=== PATIENT | female | born 1990 | race Caucasian/White ===

== ENCOUNTER → 2024-10-03 | Outpatient (CLI) | payer OTHER, SELFPAY ==
--- NOTE | 2024-10-03 15:28 | NEURO ---
NCS and/or EMG Patient Report Ordering Doctor: Merry Holland DATE OF SERVICE: 10/03/24 Adore presents for electrodiagnostic testing of the lower limbs. She reports intermittent numbness and tingling in both feet. Electrodiagnostic findings: Peroneal motor nerve demonstrates normal distal latency, amplitude and conduction velocity bilaterally. Normal tibial motor response bilaterally. Sensory responses are within normal limits. Normal tibial and peroneal F?waves. Normal H?reflex bilaterally. Needle EMG testing was performed in the lower limbs. All muscles tested showed no evidence of denervation with normal motor unit potentials. Electrodiagnostic impression: This is a normal electrodiagnostic study of the lower limbs. There is no electrodiagnostic evidence for peripheral neuropathy or lumbosacral radiculopathy. Multi Select Codes Neurology Neurology Interp Codes: 09928-16 Musc test done w/n test comp (interp) (2) and 34523-87 Nrv cndj test 9-10 studies (interp)
== END | disposition home or self-care (01) ==
PROVIDERS: PCP Nurse Practitioner Family; Referring Provider Nurse Practitioner Family; Visit Provider Nurse Practitioner Family
DX: R20.0 Anesthesia of skin (principal); R20.2 Paresthesia of skin
CPT/HCPCS: 95886; 95911

== ENCOUNTER → 2024-10-10 | Outpatient (CLI) | payer OTHER, SELFPAY ==
--- NOTE | 2024-10-10 14:05 | NEURO ---
NCS and/or EMG Patient Report Ordering Doctor: Merry Holland DATE OF SERVICE: 10/10/24 Adore presents with complaints of numbness and tingling in the hands, worse on the right side. Electrodiagnostic findings: Right median motor nerve demonstrates prolonged distal latency with normal amplitude and conduction velocity. Left median motor response is within normal limits. Ulnar motor response within normal limits bilaterally. Prolonged right median F?wave. Prolonged right median sensory latency at the wrist. Prolonged left median sensory latency at the wrist. Normal ulnar and radial sensory responses. Needle EMG testing was performed in the upper limbs. All muscles tested showed no evidence of denervation with normal motor unit action potentials. Electrodiagnostic impression: This is an abnormal study. 1. Electrodiagnostic findings suggestive of bilateral median mononeuropathy. This is consistent with a mild left carpal tunnel syndrome and a moderate right carpal tunnel syndrome. Multi Select Codes Neurology Neurology Interp Codes: 28233-79 Musc test done w/n test comp (interp) (2) and 66548-06 Nrv cndj test 11-12 studies (interp)
--- NOTE | 2024-10-10 14:05 | NEURO ---
NCS and/or EMG Patient Report Ordering Doctor: Merry Holland DATE OF SERVICE: 10/10/24 Adore presents with complaints of numbness and tingling in the hands, worse on the right side. Electrodiagnostic findings: Right median motor nerve demonstrates prolonged distal latency with normal amplitude and conduction velocity. Left median motor response is within normal limits. Ulnar motor response within normal limits bilaterally. Prolonged right median F?wave. Prolonged right median sensory latency at the wrist. Prolonged left median sensory latency at the wrist. Normal ulnar and radial sensory responses. Needle EMG testing was performed in the upper limbs. All muscles tested showed no evidence of denervation with normal motor unit action potentials. Electrodiagnostic impression: This is an abnormal study. 1. Electrodiagnostic findings suggestive of bilateral median mononeuropathy. This is consistent with a mild left carpal tunnel syndrome and a moderate right carpal tunnel syndrome. Multi Select Codes Neurology Neurology Interp Codes: 48822-09 Musc test done w/n test comp (interp) (2) and 22937-37 Nrv cndj test 11-12 studies (interp)
--- OUTSIDE RECORDS SUMMARY | 2024-10-10 22:37 | XMS RPT_ITS | CCD ---
Author Organization [facility] Care Team Providers Care Director Of Online Merchandising Name Role Phone BACHUWA, TIFFANI Unavailable Unavailable NO FAMILY DOCTOR, NO FAMILY DOCTOR Unavailable Unavailable BACHUWA, TIFFANI Unavailable Unavailable NO FAMILY DOCTOR, NO FAMILY DOCTOR Unavailable Unavailable BACHUWA, TIFFANI Unavailable Unavailable BACHUWA, TIFFANI Unavailable Unavailable NO FAMILY DOCTOR, NO FAMILY DOCTOR Unavailable Unavailable BACHUWA, TIFFANI Unavailable Unavailable BACHUWA, TIFFANI Unavailable Unavailable NO FAMILY DOCTOR, NO FAMILY DOCTOR Unavailable Unavailable BACHUWA, TIFFANI Unavailable Unavailable NO FAMILY DOCTOR, NO FAMILY DOCTOR Unavailable Unavailable BACHUWA, TIFFANI Unavailable Unavailable BACHUWA, TIFFANI Unavailable Unavailable NO FAMILY DOCTOR, NO FAMILY DOCTOR Unavailable Unavailable BACHUWA, TIFFANI Unavailable Unavailable NO FAMILY DOCTOR, NO FAMILY DOCTOR Unavailable Unavailable BACHUWA, TIFFANI Unavailable Unavailable BACHUWA, TIFFANI Unavailable Unavailable NO FAMILY DOCTOR, NO FAMILY DOCTOR Unavailable Unavailable BACHUWA, TIFFANI Unavailable Unavailable BACHUWA, TIFFANI Unavailable Unavailable NO FAMILY DOCTOR, NO FAMILY DOCTOR Unavailable Unavailable Ksenia Kingsley Primary Care Provider KSENIA KINGSLEY Referring Unavailable KSENIA KINGSLEY Primary Care Unavailable Manocchio, Marcie Unavailable Unavailable Unknown, Referring Provider Unavailable Unav ailable Unavailable Unavailable Unavailable Primary Care Provider Unavailabl e Unavailable Primary Care Provider Unavailabl e TIFFANI RODRIGUEZ MD Attending Unavailable TIFFANI RODRIGUEZ MD Attending Unavailable TIFFANI RODRIGUEZ MD Attending Unavailable Merry Littlejohn Primary Care Provider [phone] MERRY REESE Referring Unavailable MERRY REESE Primary Care Unavailable ISMAEL PIÑA Attending Unavailable MERRY REESE Referring Unavailable MERRY REESE Primary Care Unavailable MERRY REESE Referring Unavailable MERRY REESE Primary Care Unavailable REESE, MERRY D Referring Unavailable REESE, MERRY D Primary Care Unavailable REESE, MERRY D Attending Unavailable REESE, MERRY D Primary Care Unavailable Reese, Merry D Consulting Unavailable Nic Esteban Attending Unavailable Reese, Merry Ismael Primary Care Unavailable Reese, Merry D Referring Unavailable Reese, Merry D Attending Unavailable Reese, Merry D Primary Care Unavailable Reese, Merry D Referring Unavailable Reese, Merry D Attending Unavailable Reese, Merry D Primary Care Unavailable Reese, Merry D Referring Unavailable Skyler MANAGER COMMODITIES-C, Merry D Primary Care Provider Skyler MANAGER COMMODITIES-CMerry Attending Provider Skyler MANAGER COMMODITIES-CMerry Referring Provider Skyler MYLES-Merry Canales Other Provider Carlito SUAREZ, Dr. Lucero Attending Provider [phone] Medications Current Medications Medication Drug Class(es) Dates Sig (Normalized) Sig (Original) atomoxetine 25 mg oral capsule (7 sources) Norepinephrine Reuptake Inhibitor Start: 09-05-2024 End: 09-05-2024 take 1 capsule by mouth twice daily atomoxetine (Strattera) 25 mg capsule Indications: Attention deficit disorder (ADD) without hyperactivity Take 1 capsule (25 mg) by mouth 2 times a day. 180 capsule 3 09/05/2024 Active 24 hr buPROPion hydrochloride 300 mg extended release oral tablet (10 sources) Aminoketone Start: 09-14-2022 End: 09-05-2024 take 1 tablet by mouth once daily buPROPion XL (Wellbutrin XL) 300 mg 24 hr tablet Indications: Moderate episode of recurrent major depressive disorder Take 1 tablet (300 mg) by mouth once daily. 90 tablet 3 09/05/2024 Active Start: 08-10-2022 End: 09-09-2022 take 1 tablet by mouth once daily buPROPion XL (WELLBUTRIN XL) 150 mg 24 hr tablet Take 1 tablet by mouth once daily. 30 tablet 0 08/10/2022 09/09/2022 Active Comment on above: Take 1 tablet by thad th once daily. cyclobenzaprine hydrochloride 10 mg oral tablet (1 source) Muscle Relaxant Start: 03-25-20 End: 03-27-20 take 1 tablet by mouth three times daily cyclobenzaprine 10 mg oral tablet ; 1 tab(s) orally 3 times a day Quantity: 9 Refills: 0 Ordered: 25-Mar-2021 Cherelle Dueñasine Start: 25-Mar-2021 End: 27-Mar-2021 Generic Substitution Allowed Comments: May cause drowsiness. Alcohol may intensify this effect. Use care when operating dangerous machinery.Obtain medical advice before taking any non-prescription drugs as some may affect the action of this medication. Comment on above: May cause drowsiness . Alcohol may intensify this effect. Use care when operating dangerous machinery.Obtain medical advice before taking any non-prescription drugs as some may affect the action of this medication. lisinopril 5 mg oral tablet (1 source) Angiotensin Converting Enzyme Inhibitor Start: 10-10-19 take 1 tablet by mouth once daily lisinopril 5 mg tablet Indications: Primary hypertension Take 1 tablet (5 mg) by mouth once daily. 30 tablet 10/09/2024 Active Start: 10-09-2024 take 1 tablet by thad th once daily lisinopril 5 mg tablet Indications: Primary hypertension Take 1 tablet (5 mg) by mouth once daily. 30 tablet 10/09/2024 Active loratadine 10 mg oral tablet (2 sources) take 1 tablet by thad th once daily as needed loratadine 10 mg oral tablet ; 1 tab(s) orally once a day, As Needed Quantity: 0 Refills: 0 Ordered: 25-Mar-2021 Kojo Raymond Generic Substitution Allowed Loratadine (CLAR ITIN PO) Take by mouth as needed. 0 Active predniSONE 20 mg oral tablet (1 source) Start: 03-25-2021 End: 03-29-2021 take 3 tablets by mouth once daily at mealtime predniSONE 20 mg oral tablet ; 3 tab(s) orally once a day Quantity: 15 Refills: 0 Ordered: 25-Mar-2021 TiffanyyanethCherelleMarcie Start: 25-Mar-2021 End: 29-Mar-2021 Generic Substitution Allowed Comments: It is very important that you take or use this exactly as directed. Do not skip doses or discontinue unless directed by your doctor.Obtain medical advice before taking any non-prescription drugs as some may affect the action of this medication.Take with food or milk. Comment on above: It is very important that you take or us e this exactly as directed. Do not skip doses or discontinue unless directed by your doctor.Obtain medical advice before taking any non-prescription drugs as some may affect the action of this medication.Take with food or milk. sertraline 100 mg oral tablet (16 sources) Serotonin Reuptake Inhibitor Start: 07-13-2021 End: 09-05-2024 take 1 tablet by mouth once daily sertraline (Zoloft) 100 mg tablet Indications: Moderate episode of recurrent major depressive disorder Take 1 tablet (100 mg) by mouth once daily. 90 tablet 3 09/05/2024 Active take 1 tablet by mouth once juliana y sertraline (ZOLOFT) 50 MG tablet Take 50 mg by mouth daily 0 Active Comment on above: Take 1 tablet by once daily. TAKE 1 TABLET ONCE D AILY Take by mouth. traMADol hydrochloride 50 mg oral tablet (1 source) Opioid Agonist Start: End: 1 take 1 tablet by mouth every six hours Ultram 50 mg oral tablet ; 1 tab(s) orally every 6 hours Quantity: 12 Refills: 0 Ordered: 25-Mar-2021 Aakash Marcie Start: 25-Mar-2021 End: 27-Mar-2021 Generic Substitution Allowed Comments: Caution federal law prohibits the transfer of this drug to any person other than the person for whom it was prescribed.May cause drowsiness. Alcohol may intensify this effect. Use care when operating dangerous machinery.Obtain medical advice before taking any non-prescription drugs as some may affect the action of this medication. Comment on above: Caution federal law prohibits the transfer of this drug to any person other than the person for whom it was prescribed.May cause drowsiness. Alcohol may intensify this effect. Use care when operating dangerous machinery.Obtain medical advice before taking any non-prescription drugs as some may affect the action of this medication. Completed/Discontinued Medications Medication Drug Class(es) Dates Sig (Normalized) Sig (Original) 24 hr amphetamine aspartate 5 mg / amphetamine sulfate 5 mg / dextroamphetamine saccharate 5 mg / dextroamphetamine sulfate 5 mg extended release oral capsule (5 sources) Central Nervous System Stimulant Start: 07-16-2021 End: 08-15-2021 amphetamine-dext roamphetamine XR (ADDERALL XR) 20 mg 24 hr capsule Take 20 mg by mouth. 0 07/16/2021 Active take 1 capsule by [facility] once daily in the morning dextroamphetamine-amphetamine 20 mg oral capsule, extended release ; 1 cap(s) orally once a day (in the morning) Quantity: 0 Refills: 0 Ordered: 25-Mar-2021 Kojo Raymond Generic Substitution Allowed Comment on above: Take 20 mg by mouth. esomeprazole 40 mg delayed release oral capsule (3 sources) Proton Pump Inhibitor Start: 021 take 1 capsule by mouth once daily 30 minutes before mealtime Esomeprazole Magnesium 40 MG Oral Capsule Delayed Release ONE CAPSULE 30 MINUTES BEFORE A MEAL DAILY Quantity: 30 Refills: 6 Ordered: 22-Jul-2020 Wilfredo Pascual MD Start : 22-Jul-2020 Active hydrocortisone 25 mg/ml topical cream (3 sources) Corticosteroid Start: 019 End: 023 hydrocortisone 2.5 % cream Apply sparingly to the affected areas 1-2 times daily as needed. 30 g 2 10/04/2018 08/10/2022 Discontinued (Discontinued by Patient) Comment on above: Apply sparingly to t he affected areas 1-2 times daily as needed. 10 ml lidocaine hydrochloride 10 mg/ml injection (2 sources) Antiarrhythmic, Amide Local Anesthetic Start: 025 End: 025 infiltration, Once PRN Procedure, Starting on Tue09/19/24 at 1035, For 1 dose, Intraprocedure Start: 03-25-2021 End: 03-31-2021 Lidoderm 5% topical film ; A pply topically to affected area once a day Quantity: 7 Refills: 0 Ordered: 25-Mar-2021 Marcie Dueñas Start: 25-Mar-2021 End: 31-Mar-2021 Generic Substitution Allowed Comments: For external use only.Remove old patch prior to applying a new patch. Comment on above: For external use onl y.Remove old patch prior to applying a new patch. tranexamic acid 650 mg oral tablet (2 sources) Antifibrinolytic Agent Start: 08-11-19 23 take 2 tablets by mouth every eight hours tranexamic acid (LYSTEDA) 650 mg tablet Take 2 tablets by mouth every 8 hours. During menses for heavy menstrual bleeding. Maximum of 5 days 60 tablet 4 08/10/2022 Active Comment on above: Take 2 tablets by mo uth every 8 hours. During menses for heavy menstrual bleeding. Maximum of 5 days valACYclovir 500 mg oral tablet (16 sources) Herpesvirus Nucleoside Analog DNA Polymerase Inhibitor, Herpes Simplex Virus Nucleoside Analog DNA Polymerase Inhibitor, Herpes Zoster Virus Nucleoside Analog DNA Polymerase Inhibitor Start: 07-01-19 End: 08-11-19 23 take 1 tablet by mouth twice daily valACYclovir (VALTREX) 500 mg tablet Take 1 tablet by mouth twice daily. 180 tablet 4 08/10/2022 Active take 1 tablet by thad th every twenty-four hours as needed valACYclovir (Valtrex) 500 mg tablet Dave e 1 tablet (500 mg) by mouth once daily as needed. Active Comment on above: Take by mouth. Take 1 tablet by thad th twice daily. Take 1 tablet by thad th twice daily. FOR 5 DAYS Problems Active Problems Problem Classification Problem Date Documented Da te Episodic/Chronic Administrative/social admission (3 sources) First encounter by subject; Translations: [Persons encountering health services in other specified circumstances] Onset: 5 09-05-2024 Episodic Diabetes mellitus without complication (10 sources) Impaired fasting glycemia; Translations: [Impaired fasting glucose] Onset: 5 09-05-2024 Episodic Disorders of lipid metabolism (2 sources) Mixed hyperlipidemia; Translations: [Mixed hyperlipidemia] Onset: 5 10-09-2024 Chronic Disorders usually diagnosed in infancy, childhood, or adolescence (9 sources) Attention deficit hyperactivity disorder, predominantly inattentive type; Translations: [Other specified behavioral and emotional disorders with onset usually occurring in childhood and adolescence] Onset: 1 09-05-2024 Chronic Esophageal disorders (12 sources) Gastroesophageal reflux disease; Translations: [Esophageal reflux] Onset: 5 09-05-2024 Chronic Essential hypertension (1 source) Essential hypertension; Translations: [Essential (primary) hypertension] 10-09-2024 Chronic Menstrual disorders (1 source) Menorrhagia; Translations: [Excessive and frequent menstruation with regular cycle] Chronic Mood disorders (9 sources) Moderate recurrent major depression; Translations: [Major depressive disorder, recurrent, moderate] Onset: 5 09-05-2024 Chronic Other gastrointestinal disorders (1 source) Esophageal dysphagia; Translations: [Esophageal dysphagia] Episodic Other gastrointestinal disorders (9 sources) Dysphagia; Translations: [Other dysphagia] Onset: 5 09-05-2024 Episodic Other nervous system disorders (9 sources) Numbness and tingling sensation of skin; Translations: [Anesthesia of skin] 09-05-2024 Episodic Other nervous system disorders (5 sources) Anesthesia of skin; Translations: [Anesthesia of skin] Onset: 5 Episodic Other nervous system disorders (5 sources) Paresthesia of skin; Translations: [Paresthesia of skin] Onset: 5 Episodic Other nutritional; endocrine; and metabolic disorders (8 sources) Severe obesity; Translations: [Class 2 severe obesity due to excess calories with serious comorbidity and body mass index (BMI) of 37.0 to 37.9 in adult] Onset: 5 09-05-2024 Chronic Spondylosis; intervertebral disc disorders; other back problems (1 source) Acute back pain with sciatica; Translations: [Lumbago] 03-25-2021 Episodic Thyroid disorders (20 sources) Nontoxic single thyroid nodule; Translations: [Multinodular goiter] Onset: 7 09-05-2024 Chronic Unclassified (1 source) Lower abdominal pain, unspecified / R10.30(ICD-9) Onset: 7 Unclassified (2 sources) Nontoxic single thyroid nodule / E04.1(ICD-9) Onset: 7 Unclassified (2 sources) Encounter for suprvsn of normal , second trimester / Z34.82(ICD-9) Onset: 7 Unclassified (1 source) 21 weeks gestation of / Z3A.21(ICD-9) Onset: 7 Unclassified (1 source) 20 weeks gestation of / Z3A.20(ICD-9) Onset: 7 Unclassified (2 sources) Oth related conditions, second trimester / O26.892(ICD-9) Onset: 7 Unclassified (1 source) Labor and del comp by cord around neck, w/o comprsn, unsp / O69.81X0(ICD-9) Onset: 8 Unclassified (2 sources) Encntr for suprvsn of normal , unsp, unsp trimester / Z34.90(ICD-9) Onset: 7 Unclassified (2 sources) Encounter for suprvsn of normal , first trimester / Z34.81(ICD-9) Onset: 7 Unclassified (1 source) Weeks of gestation of not specified / Z3A.00(ICD-9) Onset: 7 Unclassified (1 source) Encounter for full-term uncomplicated delivery / O80(ICD-9) Onset: 8 Unclassified (1 source) Single live / Z37.0(ICD-9) Onset: 8 Unclassified (1 source) 39 weeks gestation of / Z3A.39(ICD-9) Onset: 8 Unclassified (2 sources) NUMBNESS TO HANDS AND FEET 03-25-2021 Comment on above: NUMBNESS TO HANDS AN D FEET Unclassified (1 source) Acute low back pain with sciatica 03-25-2021 Past or Other Problems Problem Classification Problem Date Documented Date Episodic/Chronic Allergic reactions (6 sources) Allergic contact dermatitis caused by plant material; Translations: [Allergic contact dermatitis due to plants, except food] Onset: 07-11-2020 Resolved: 10-09-2024 09-05-2024 Episodic Normal and/or delivery (2 sources) Encounter for full-term uncomplicated delivery; Translations: [Encounter for supervision of normal , unspecified, unspecified trimester] Onset: 11-05-2016 Episodic Other screening for suspected conditions (not mental disorders or infectious disease) (9 sources) Patient encounter status; Translations: [Encounter for screening for lipoid disorders] Onset: 09-05-2024 Resolved: 10-09-2024 09-05-2024 Episodic Residual codes; unclassified (6 sources) Drug therapy finding; Translations: [Medication management contract broken] Onset: 01-09-2021 09-05-2024 Episodic Unclassified (1 source) Encounter for suprvsn of normal , second trimester; Translations: [Encounter for suprvsn of normal , second trimester] Onset: 01-28-2017 Unclassified (1 source) Oth related conditions, second trimester; Translations: [Oth related conditions, second trimester] Onset: 12-09-2016 Unclassified (1 source) Encounter for suprvsn of normal , first trimester; Translations: [Encounter for suprvsn of normal , first trimester] Onset: 11-01-2016 Unclassified (6 sources) Onset: 09-05-2024 Resolved: 10-09-2024 09-05-2024 Results Test Name Value Interpretation Reference Range Facility NCS and/or EMG Patienton NCS and/or EMG Patient [facility] Pulmonary Services/Neurology [address] [place] [address] MR#: [id number] Acct: [id number] Name: RAVEN PINK Rep #: [id number] : 1990 34 From: Nic Esteban MD Referring Dr: Merry ReeseC Status: REG CLI Location: [facility] Date: 10/03/24 Sex: F C NCS and/or EMG Patient Report Ordering Doctor: Merry Reese DATE OF SERVICE: 10/03/24 Raven presents for electrodiagnostic testing of the lower limbs. She reports intermittent numbness and tingling in both feet. Electrodiagnostic findings: Peroneal motor nerve demonstrates normal distal latency, amplitude and conduction velocity bilaterally. Normal tibial motor response bilaterally. Sensory responses are within normal limits. Normal tibial and peroneal F???waves. Normal H???reflex bilaterally. Needle EMG testing was performed in the lower limbs. All muscles tested showed no evidence of denervation with normal motor unit potentials. Electrodiagnostic impression: This is a normal electrodiagnostic study of the lower limbs. There is no electrodiagnostic evidence for peripheral neuropathy or lumbosacral radiculopathy. Multi Select Codes Neurology Neurology Interp Codes: 51568-04 Musc test done w/n test comp (interp) (2) and 35100-41 Nrv cndj test 9-10 studies (interp) 10/03/24 1530 Date Nic Esteban MD CC: MANAGER COMMODITIES-C Merry Reese; Dr. Nic Esteban MD Date Dictated: 10/03/241527 Date Transcribed: 10/03/241527 [employer] Operator: MARTI Signed Normal [facility] CBC (INCLUDES DIFF/PLT)on Basophils (Bld) [#/Vol] 0.039 10*3/uL Normal 0-200 [facility] Comment on above: Performed By: #### 7 600, 84956, 899, 70024, 6399, 866, 09992 #### [facility] of [place] [address] Instructional Materials Director: Porfirio Samano MD Basophils/100 WBC (Bld) 0.5 % Normal [facility] Comment on above: Performed By: #### 7 600, 99750, 899, 57890, 6399, 866, 13533 #### [facility] [place] [address] Instructional Materials Director: Porfirio Samano MD Eosinophils (Bld) [#/Vol] 0.162 10*3/uL Normal 15-500 [facility] Comment on above: Performed By: #### 7 600, 25384, 899, 10902, 6399, 866, 42063 #### [facility] [place] [address] Instructional Materials Director: Porfirio Samano MD Eosinophils/100 WBC (Bld) 2.1 % Normal [facility] Comment on above: Performed By: #### 7 600, 43332, 899, 69629, 6399, 866, 06499 #### [facility] [place] [address] Instructional Materials Director: Porfirio Samano MD Erythrocyte distribution width (RBC) [Ratio] 13.6 % Normal 11.0-15.0 [facility] Comment on above: Performed By: #### 7 600, 95122, 899, 84450, 6399, 866, 57671 #### [facility] [place] [address] Instructional Materials Director: Porfirio Samano MD Hematocrit (Bld) [Volume fraction] 41.2 % Normal 35.0-45.0 [facility] Comment on above: Performed By: #### 7 600, 87256, 899, 57618, 6399, 866, 72520 #### [facility] of [address], [address] [place] [address] Instructional Materials Director: Porfirio Samano MD Hemoglobin (Bld) [Mass/Vol] 12.8 g/dL Normal 11.7-15.5 [facility] Comment on above: Performed By: #### 7 600, 38986, 899, 87485, 6399, 866, 32853 #### [facility] [place] [address] Instructional Materials Director: Porfirio Samano MD Lymphocytes (Bld) [#/Vol] 2.064 10*3/uL Normal 850-3900 [facility] Comment on above: Performed By: #### 7 600, 58675, 899, 74069, 6399, 866, 43522 #### [facility] [place] [address] Instructional Materials Director: Porfirio Samano MD Lymphocytes/100 WBC (Bld) 26.8 % Normal [facility] Comment on above: Performed By: #### 7 600, 58453, 899, 41528, 6399, 866, 35723 #### [facility] [place] [address] Instructional Materials Director: Porfirio Samano MD MCH (RBC) [Entitic mass] 29.2 pg Normal 27.0-33.0 [facility] Comment on above: Performed By: #### 7 600, 69619, 899, 90880, 6399, 866, 78289 #### [facility] [place] [address] Instructional Materials Director: Porfirio Samano MD MCHC (RBC) [Mass/Vol] 31.1 g/dL Low 32.0-36.0 [facility] Comment on above: Result Comment: For adults, a slight decrease in the calculated MCHC value (in the range of 30 to 32 g/dL) is most likely not clinically significant; however, it should be interpreted with caution in correlation with other red cell parameters and the patient's clinical condition. Performed By: #### 7 600, 44384, 899, 78941, 6399, 866, 43670 #### [facility] [place] [address] Instructional Materials Director: Porfirio Samano MD MCV (RBC) [Entitic vol] 93.8 fL Normal 80.0-100.0 [facility] Comment on above: Performed By: #### 7 600, 93920, 899, 89149, 6399, 866, 58663 #### [facility] [place] [address] Instructional Materials Director: Porfirio Samano MD Monocytes (Bld) [#/Vol] 0.454 10*3/uL Normal 200-950 [facility] Comment on above: Performed By: #### 7 600, 77233, 899, 55118, 6399, 866, 63746 #### [facility] [place] [address] Instructional Materials Director: Porfirio Samano MD Monocytes/100 WBC (Bld) 5.9 % Normal [facility] Comment on above: Performed By: #### 7 600, 48006, 899, 00852, 6399, 866, 78362 #### [facility] [place] [address] Instructional Materials Director: Porfirio Samano MD Neutrophils (Bld) [#/Vol] 4.982 10*3/uL Normal 3746-9561 [facility] Comment on above: Performed By: #### 7 600, 36150, 899, 61777, 6399, 866, 63707 #### [facility] of [address], [address] [place] [address] Instructional Materials Director: Porfirio Samano MD Neutrophils/100 WBC (Bld) 64.7 % Normal [facility] Comment on above: Performed By: #### 7 600, 72687, 899, 39716, 6399, 866, 14572 #### [facility] [place] [address] Instructional Materials Director: Porfirio Samano MD Platelet mean volume (Bld) [Entitic vol] 9.0 fL Normal 7.5-12.5 [facility] Comment on above: Performed By: #### 7 600, 86182, 899, 06465, 6399, 866, 93768 #### [facility] [place] [address] Instructional Materials Director: Porfirio Samano MD Platelets (Bld) [#/Vol] 358 10*3/uL Normal 140-400 [facility] Comment on above: Performed By: #### 7 600, 41081, 899, 79307, 6399, 866, 50100 #### [facility] [place] [address] Instructional Materials Director: Porfirio Samano MD RBC (Bld) [#/Vol] 4.39 10*6/uL Normal 3.80-5.10 [facility] Comment on above: Performed By: #### 7 600, 72243, 899, 05683, 6399, 866, 28348 #### [facility] [place] [address] Instructional Materials Director: Porfirio Samano MD WBC (Bld) [#/Vol] 7.7 10*3/uL Normal 3.8-10.8 [facility] Comment on above: Performed By: #### 7 600, 40944, 899, 41551, 6399, 866, 31354 #### [facility] [place] [address] Instructional Materials Director: Porfirio Samano MD COMPREHENSIVE METABOLIC PANE L W/ANION GAPon 09-20-2024 Albumin [Mass/Vol] 4.5 g/dL Normal 3.6-5.1 [facility] Comment on above: Performed By: #### 7 600, 51747, 899, 65625, 6399, 866, 41165 #### [facility] [place] [address] Instructional Materials Director: Porfirio Samano MD ALP [Catalytic activity/Vol] 60 U/L Normal 31-125 [facility] Comment on above: Performed By: #### 7 600, 86025, 899, 64803, 6399, 866, 48407 #### [facility] of [address], [address] [place] [address] Instructional Materials Director: Porfirio Samano MD ALT [Catalytic activity/Vol] 13 U/L Normal 6-29 [facility] Comment on above: Performed By: #### 7 600, 75627, 899, 10215, 6399, 866, 24665 #### [facility] [place] [address] Instructional Materials Director: Porfirio Samano MD AST [Catalytic activity/Vol] 12 U/L Normal 10-30 [facility] Comment on above: Performed By: #### 7 600, 48266, 899, 81661, 6399, 866, 16122 #### [facility] [place] [address] Instructional Materials Director: Porfirio Samano MD Bilirubin [Mass/Vol] 0.3 mg/dL Normal 0.2-1.2 [facility] Comment on above: Performed By: #### 7 600, 16631, 899, 96615, 6399, 866, 57606 #### [facility] [place] [address] Instructional Materials Director: Porfirio Samano MD Calcium [Mass/Vol] 9.1 mg/dL Normal 8.6-10.2 [facility] Comment on above: Performed By: #### 7 600, 49139, 899, 93154, 6399, 866, 05346 #### [facility] [place] [address] Instructional Materials Director: Porfirio Samaon MD Chloride [Moles/Vol] 104 mmol/L Normal 98-110 [facility] Comment on above: Performed By: #### 7 600, 90432, 899, 42759, 6399, 866, 95899 #### [facility] [address], [address] [place] [address] Instructional Materials Director: Porfirio Samano MD CO2 [Moles/Vol] 29 mmol/L Normal 20-32 [facility] Comment on above: Performed By: #### 7 600, 82557, 899, 87243, 6399, 866, 76726 #### [facility] [place] [address] Instructional Materials Director: Porfirio Samano MD Creatinine [Mass/Vol] 0.72 mg/dL Normal 0.50-0.97 [facility] Comment on above: Performed By: #### 7 600, 96173, 899, 35719, 6399, 866, 58076 #### [facility] [place] [address] Instructional Materials Director: Porfirio Samano MD ELECTROLYTE BALANCE 6 mmol/L (calc) Low 7-17 [facility] Comment on above: Performed By: #### 7 600, 63669, 899, 48554, 6399, 866, 72624 #### [facility] [place] [address] Instructional Materials Director: Porfirio Samano MD GFR/1.73 sq M.predicted among non-blacks MDRD (S/P/Bld) [Vol rate/Area] 111 mL/min/{1.73_m2} Normal > OR = 60 [facility] Comment on above: Performed By: #### 7 600, 13236, 899, 32017, 6399, 866, 37550 #### [facility] [place] [address] Instructional Materials Director: Porfirio Samano MD Glucose [Mass/Vol] 85 mg/dL Normal 65-99 [facility] Comment on above: Result Comment: Fasting reference interval Performed By: #### 7 600, 90280, 899, 05251, 6399, 866, 92429 #### [facility] [place] [address] Instructional Materials Director: Porfirio Samano MD Potassium [Moles/Vol] 4.1 mmol/L Normal 3.5-5.3 [facility] Comment on above: Performed By: #### 7 600, 11933, 899, 10268, 6399, 866, 21142 #### [facility] [place] [address] Instructional Materials Director: Porfirio Samano MD Protein [Mass/Vol] 7.0 g/dL Normal 6.1-8.1 [facility] Comment on above: Performed By: #### 7 600, 03013, 899, 76540, 6399, 866, 97111 #### [facility] [place] [address] Instructional Materials Director: Porfirio Samano MD Sodium [Moles/Vol] 139 mmol/L Normal 135-146 [facility] Comment on above: Performed By: #### 7 600, 91717, 899, 98696, 6399, 866, 70376 #### [facility] [place] [address] Instructional Materials Director: Porfirio Samano MD Urea nitrogen [Mass/Vol] 12 mg/dL Normal 7-25 [facility] Comment on above: Performed By: #### 7 600, 85703, 899, 81517, 6399, 866, 79150 #### [facility] [place] [address] Instructional Materials Director: Porfirio Samano MD HEMOGLOBIN A1c WITH eAGon eAG (mmol/L) 6.3 mmol/L Normal [facility] Comment on above: Performed By: #### 7 600, 53675, 899, 03225, 6399, 866, 16918 #### [facility] [place] [address] Instructional Materials Director: Porfirio Samano MD HbA1c (Bld) [Mass fraction] 5.6 % Normal <5.7 [facility] Comment on above: Result Comment: For the purpose of screening for the presence of diabetes: <5.7% Consistent with the absence of diabetes 5.7-6.4% Consistent with increased risk for diabetes (prediabetes) > or =6.5% Consistent with diabetes This assay result is consistent with a decreased risk of diabetes. Currently, no consensus exists regarding use of hemoglobin A1c for diagnosis of diabetes in children. According to [place] [employer] (ADA) guidelines, hemoglobin A1c <7.0% represents optimal control in non- diabetic patients. Different metrics may apply to specific patient populations. Standards of Medical Care in Diabetes(ADA). Performed By: #### 7 600, 56279, 899, 01530, 6399, 866, 55114 #### [facility] [place] [address] Instructional Materials Director: Porfirio Samano MD Magnesium [Mass/Vol] 114 mg/dL Normal [facility] Comment on above: Performed By: #### 7 600, 06716, 899, 14473, 6399, 866, 25288 #### [facility] [place] [address] Instructional Materials Director: Porfirio Samano MD LIPID PANEL, [facility] 08-27 Cholesterol [Mass/Vol] 212 mg/dL High <200 [facility] Comment on above: Order Comment: FASTI NG:YES FASTING: YES Performed By: #### 7 600, 05110, 899, 51088, 6399, 866, 31569 #### [facility] [address], [address] [place] [address] Instructional Materials Director: Porfirio Samano MD Cholesterol in HDL [Mass/Vol] 50 mg/dL Normal > OR = 50 [facility] Comment on above: Order Comment: FASTI NG:YES FASTING: YES Performed By: #### 7 600, 35061, 899, 57179, 6399, 866, 72088 #### [facility] [address], [address] [place] [address] Instructional Materials Director: Porfirio Samano MD Cholesterol in LDL [Mass/Vol] 136 mg/dL High [facility] Comment on above: Order Comment: FASTI NG:YES FASTING: YES Result Comment: Refe rence range: <100 Desirable range <100 mg/dL for primary prevention; <70 mg/dL for patients with CHD or diabetic patients with > or = 2 CHD risk factors. LDL-C is now calculated using the Pam calculation, which is a validated novel method providing better accuracy than the Friedewald equation in the estimation of LDL-C. Aftab SS et al. CAROLYN. 2013;310(19): 4904-9813 (http://education.[employer].Gutenbergz/faq/UDY234) Performed By: #### 7 600, 17603, 899, 18381, 6399, 866, 62495 #### [facility] [address], [address] [place] [address] Instructional Materials Director: Porfirio Samano MD Cholesterol.total/C holesterol in HDL [Mass ratio] 4.2 {ratio} Normal <5.0 [facility] Comment on above: Order Comment: FASTI NG:YES FASTING: YES Performed By: #### 7 600, 95341, 899, 85704, 6399, 866, 67496 #### [facility] [address], [address] [place] [address] Instructional Materials Director: Porfirio Samano MD NON HDL CHOLESTEROL 162 mg/dL (calc) High <130 [facility] Comment on above: Order Comment: FASTI NG:YES FASTING: YES Result Comment: For patients with diabetes plus 1 major ASCVD risk factor, treating to a non-HDL-C goal of <100 mg/dL (LDL-C of <70 mg/dL) is considered a therapeutic option. Performed By: #### 7 600, 35179, 899, 01579, 6399, 866, 47961 #### [facility] [address], [address] [place] [address] Instructional Materials Director: Profirio Samano MD Triglyceride [Mass/Vol] 137 mg/dL Normal <150 [facility] Comment on above: Order Comment: FASTI NG:YES FASTING: YES Performed By: #### 7 600, 86072, 899, 63485, 6399, 866, 43776 #### [facility] [address], [address] [place] [address] Instructional Materials Director: Porfirio Samano MD T3, FREEon 09-20-2024 Free T3 [Mass/Vol] 2.8 pg/mL Normal 2.3-4.2 [facility] Comment on above: Performed By: #### 7 600, 91432, 899, 87756, 6399, 866, 50914 #### [facility] [place] [address] Instructional Materials Director: Porfirio Samano MD T4, FREE 09-20-2024 Free T4 [Mass/Vol] 0.9 ng/dL Normal 0.8-1.8 [facility] Comment on above: Performed By: #### 7 600, 43147, 899, 17923, 6399, 866, 03467 #### [facility] [place] [address] Instructional Materials Director: Porfirio Samano MD TSHon 09-20-2024 TSH Qn 2.81 m[IU]/L Normal [facility] Comment on above: Result Comment: Refe rence Range > or = 20 Years 0.40-4.50 Ranges First trimester 0.26-2.66 Second trimester 0.55-2.73 Third trimester 0.43-2.91 Performed By: #### 7 600, 67696, 899, 61970, 6399, 866, 89253 #### [facility] [place] [address] Instructional Materials Director: Porfirio Samano MD Non-city planning teacher cytology studyon Non-gynecological cytology method study Pathology report.total SEE COMMENT Non-gynecologic Cytology Case: [id number] Authorizing Provider: Merry Reese APRN-ABIGAIL Collected: 09/19/2024 1058 Ordering Location: [facility] Received: 09/19/2024 1107 Center Pathologist: Lianet Cordero MD Specimen: THYROID FINE NEEDLE ASPIRATION RIGHT MID LOBE Path report.final diagnosis SEE COMMENT A. THYROID FINE NEEDLE ASPIRATION RIGHT MID LOBE Malignant cells derived from papillary thyroid carcinoma medical consultant: Tari Blue M.D. at 1509 EDT Laboratory comment SEE COMMENT Slide(s) initially screened by CLAUDIA Infante at [facility] [address] [facility] [id number] By the signature on this report, the individual or group listed as making the Final Interpretation/Diagnosis certifies that they have reviewed this case. RESIDENT REVIEW The gross and/or microscopic findings were reviewed in conjunction with pathology resident, Abhishek Arshad MD. Path report.relevant Hx Right thyroid nodule Path report.gross observation SEE COMMENT A. THYROID FINE NEEDLE ASPIRATION RIGHT MID LOBE. Received 8 direct smears (4 air-dried Diff-Quik and 4 spray-fixed) and 30 ml pink clear needle rinse in Cytolyt with particles. Laboratory comment SEE COMMENT A1 Slides Only (No Block) A1-1 Diff Quik Stain Smear NGYN A1-2 Diff Quik Stain Smear NGYN A1-3 Diff Quik Stain Smear NGYN A1-4 Diff Quik Stain Smear NGYN A1-5 Pap Stain Smear NGYN A1-6 Pap Stain Smear NGYN A1-7 Pap Stain Smear NGYN A1-8 Pap Stain Smear NGYN A1-9 Pap Stain NGYN ThinPrep Normal [facility] US GUIDED THYROID BIOPSYon 0 09-19-2024 US GUIDED THYROID BIOPSY Interpreted By: Ismael Piña, STUDY: US GUIDED THYROID BIOPSY; 09/19/2024 11:33 am INDICATION: Signs/Symptoms:nodule. COMPARISON: 09/07/2024 ACCESSION NUMBER(S): [id number] ORDERING CLINICIAN: MERRY REESE FINDINGS: A detailed discussion of the procedure was performed with the patient. Informed consent was obtained by Dr. Piña. The patient was placed in the supine position with the neck in an extended position. Ultrasound of the thyroid was performed and demonstrated a bilobed nodule within the right lobe of the thyroid, corresponding with the 2 nodules described on the prior ultrasound.. The nodule in the right lobe of the thyroid was selected for biopsy. The patient was prepped and draped in normal sterile fashion. 1% lidocaine was utilized for local anesthesia. Subsequently, four passes were made into the right thyroid nodule using 25 gauge spinal needles under direct ultrasound guidance. Images document the tip of the needle within the nodule. Slides were prepared and sent to pathology for evaluation. There were no immediate complications. The procedure was performed by Dr. Piña. The patient was monitored throughout the procedure by the nurse, including blood pressure, heart rate, EKG, and pulse oximetry. IMPRESSION: Successful ultrasound-guided fine-needle aspiration biopsy of the thyroid. Signed by: Ismael Piña 09/19/2024 12:21 PM Dictation workstation: [id number] [facility] US Guidance for fine needle aspiration of Thyroid glandon 09-19-2024 Successful ultrasound-guided fine-needle aspiration biopsy of the thyroid. Signed by: Ismael Piña 09/19/2024 12:21 PM Dictation workstation: [id number] SHERI JORDAN Interpreted By: Ismael Piña, STUDY: US GUIDED THYROID BIOPSY; 09/19/2024 11:33 am INDICATION: Signs/Symptoms:nodule. COMPARISON: 09/07/2024 ACCESSION NUMBER(S): [id number] ORDERING CLINICIAN: MERRY REESE FINDINGS: A detailed discussion of the procedure was performed with the patient. Informed consent was obtained by Dr. Piña. The patient was placed in the supine position with the neck in an extended position. Ultrasound of the thyroid was performed and demonstrated a bilobed nodule within the right lobe of the thyroid, corresponding with the 2 nodules described on the prior ultrasound.. The nodule in the right lobe of the thyroid was selected for biopsy. The patient was prepped and draped in normal sterile fashion. 1% lidocaine was utilized for local anesthesia. Subsequently, four passes were made into the right thyroid nodule using 25 gauge spinal needles under direct ultrasound guidance. Images document the tip of the needle within the nodule. Slides were prepared and sent to pathology for evaluation. There were no immediate complications. The procedure was performed by Dr. Piña. The patient was monitored throughout the procedure by the nurse, including blood pressure, heart rate, EKG, and pulse oximetry. Ismael Menendez MD - 09/19/2024 Interpreted By: Ismael Piña, STUDY: US GUIDED THYROID BIOPSY; 09/19/2024 11:33 am INDICATION: Signs/Symptoms:nodule. COMPARISON: 09/07/2024 ACCESSION NUMBER(S): [id number] ORDERING CLINICIAN: MERRY REESE FINDINGS: A detailed discussion of the procedure was performed with the patient. Informed consent was obtained by Dr. Piña. The patient was placed in the supine position with the neck in an extended position. Ultrasound of the thyroid was performed and demonstrated a bilobed nodule within the right lobe of the thyroid, corresponding with the 2 nodules described on the prior ultrasound.. The nodule in the right lobe of the thyroid was selected for biopsy. The patient was prepped and draped in normal sterile fashion. 1% lidocaine was utilized for local anesthesia. Subsequently, four passes were made into the right thyroid nodule using 25 gauge spinal needles under direct ultrasound guidance. Images document the tip of the needle within the nodule. Slides were prepared and sent to pathology for evaluation. There were no immediate complications. The procedure was performed by Dr. Piña. The patient was monitored throughout the procedure by the nurse, including blood pressure, heart rate, EKG, and pulse oximetry. IMPRESSION: Successful ultrasound-guided fine-needle aspiration biopsy of the thyroid. Signed by: Ismael Piña 09/19/2024 12:21 PM Dictation workstation: [id number] [facility] Work Phone: Radiology Study observation (narrative) [facility] Work Phone: US Guidance for fine needle aspiration of Thyroid glandOrdered By: Ismael Piña on 09-19-2024 [facility] Work Phone: XR CERVICAL SPINE 2-3 VIEWSo n 09-19-2024 XR CERVICAL SPINE 2-3 VIEWS Interpreted By: Jp Ruelas, STUDY: XR CERVICAL SPINE 2-3 VIEWS; ; 09/19/2024 9:52 am INDICATION: Signs/Symptoms:NUMBNESS AND TINGLING TO BUE. ,R20.0 Anesthesia of skin,R20.2 Paresthesia of skin COMPARISON: None. ACCESSION NUMBER(S): [id number] ORDERING CLINICIAN: MERRY REESE FINDINGS: Two views demonstrate about 2 mm C5 retrolisthesis. Mild degenerative disc space narrowing at C5-6. Heights of the vertebra are maintained. No unusual paravertebral soft tissue abnormality. IMPRESSION: Mild degenerative changes C5-6 including mild degenerative C5 retrolisthesis. MACRO: None Signed by: Jp Ruelas 09/20/2024 1:31 PM Dictation workstation: [id number] [facility] XR LUMBAR SPINE 6+ VIEWS INC LUDING OBLIQUE FLEXION EXTENSIONon 09-19-2024 XR LUMBAR SPINE 6+ VIEWS INCLUDING OBLIQUE FLEXION EXTENSION Interpreted By: Jp Ruelas, STUDY: XR LUMBAR SPINE 6+ VIEWS INCLUDING OBLIQUE FLEXION EXTENSION; ; 09/19/2024 9:53 am INDICATION: Signs/Symptoms:NUMBNESS AND TINGLING TO BLE. ,R20.0 Anesthesia of skin,R20.2 Paresthesia of skin COMPARISON: March 25, 2021 CT abdomen and pelvis ACCESSION NUMBER(S): [id number] ORDERING CLINICIAN: MERRY REESE FINDINGS: There are 5 non rib-bearing lumbar segments. Heights of the vertebra and intervertebral disc spaces are maintained. There are fracture, subluxation, spondylolysis or instability. No unusual paravertebral soft tissue abnormalities. IMPRESSION: No significant abnormality. MACRO: None Signed by: Jp Ruelas 09/20/2024 1:15 PM Dictation workstation: [id number] [facility] US THYROIDon 09-07-2024 US THYROID Interpreted By: aAron Rodriguez, STUDY: US THYROID; 09/07/2024 12:37 pm INDICATION: Signs/Symptoms:NODULES. COMPARISON: 04/16/2022 ACCESSION NUMBER(S): [id number] ORDERING CLINICIAN: MERRY REESE TECHNIQUE: Multiple ultrasonographic images of the thyroid gland and surrounding tissues were obtained. FINDINGS: PARENCHYMA: SIZE: RIGHT LOBE: 5 x 1.7 x 1.8 cm; heterogenous echotexture with normal vascularity. LEFT LOBE: 3.9 x 0.9 x 1.1 cm; heterogenous echotexture with normal vascularity. ISTHMUS: 0.3 cm NODULES: (Please note, assessment and description of nodules is per TI-RADS criteria. Up to 4 total nodules described, which includes largest and/or most clinically significant based on morphology.) It is noted that some spongiform and/or cystic nodules may not be specifically described and are TR category 1 (benign). NODULE #: 1. Location: Right interpolar region Size: 10 x 12 x 8 mm Composition: Solid or almost completely solid (2) Echogenicity: Hypoechoic (2) Shape: Vgeqq-hrcw-emwn (0) Margin: Smooth (0) Echogenic Foci: Punctate echogenic foci (3) If present previously: Significant change in size (>/= 20% diameter increase in at least two dimensions and minimal increase of 2mm?): not applicable Change in features or ACR TI-RADS category: not applicable The total score of this nodule is 7 points, corresponding to a TI-RADS category 5; (>7 points) Highly suspicious. NODULE #: 2. Location: Right interpolar region Size: 13 x 10 x 11 mm, previously 8 x 5 x 7 mm Composition: Solid or almost completely solid (2) Echogenicity: Hypoechoic (2) Shape: Jrpzu-lzzu-opon (0) Margin: Smooth (0) Echogenic Foci: Punctate echogenic foci (3) If present previously: Significant change in size (>/= 20% diameter increase in at least two dimensions and minimal increase of 2mm?): Yes, increased. Change in features or ACR TI-RADS category: Yes, increased. The total score of this nodule is 7 points, corresponding to a TI-RADS category 5; (>7 points) Highly suspicious. NODULE #: 3. Location: Left upper pole Size: 7 x 6 x 7 mm Composition: Solid or almost completely solid (2) Echogenicity: Hypoechoic (2) Shape: Mcduk-mfsr-zszf (0) Margin: Smooth (0) Echogenic Foci: None or Large comet-tail artifacts (0) If present previously: Significant change in size (>/= 20% diameter increase in at least two dimensions and minimal increase of 2mm?): not applicable Change in features or ACR TI-RADS category: not applicable The total score of this nodule is 4 points, corresponding to a TI-RADS category 4; (4-6 points) Moderately suspicious. NODULE #: 4. Location: Left inferior pole Size: 6 x 4 x 3 mm Composition: Solid or almost completely solid (2) Echogenicity: Hyperechoic or isoechoic (1) Shape: Ktzpg-wttv-coic (0) Margin: Smooth (0) Echogenic Foci: None or Large comet-tail artifacts (0) If present previously: Significant change in size (>/= 20% diameter increase in at least two dimensions and minimal increase of 2mm?): not applicable Change in features or ACR TI-RADS category: not applicable The total score of this nodule is 3 points, corresponding to a TI-RADS category 3; (3 points) Mildly suspicious. CERVICAL LYMPH NODES: No enlarged or morphologically abnormal cervical nodes are seen. IMPRESSION: 1. Heterogenous thyroid gland with multiple nodules. 2. Interval increase in the size of a TIRADS 5 right interpolar region nodule, which now measures 13 mm. Additional TIRADS 5 nodule in the right interpolar region, measures 12 mm and was not noted on the prior examination. Recommend FNA of these nodules. 3. Subcentimeter left upper pole TIRADS 4 nodule, also noted. Please note that these statements are based on the recommendations of the [place] [employer] TI-RADS grading system. ACR TI-RADS recommendations (apply to nodules which have NOT been biopsied): TR5 (7 or more points) highly suspicious - FNA if ? 1cm, follow-up if 0.5 -0.9 cm every year for 5 years. Aggregate cancer risk 35%. TR4 (4-6 points) moderately suspicious - FNA if ? 1.5cm, follow-up if 1 -1.4 cm in 1, 2, 3 and 5 years. Aggregate cancer risk 9.1% TR3 (3 points) mildly suspicious - FNA if ? 2.5cm, follow-up if 1.5 -2.4 cm in 1, 3 and 5 years. Aggregate cancer risk 4.8% TR2 (2 points) not suspicious. No FNA or follow-up. Aggregate cancer risk 1.5% TR1 (0 points) benign - No FNA or follow-up. Aggregate cancer risk 0.3% Signed by: Aaron Maciel 09/09/2024 3:58 PM Dictation workstation: [id number] [facility] THIN PREP IMAGE SEND OUTon 0 08-19-2023 THINPREP TIS PAP SEE COMMENT [facility] Comment on above: Order Comment: Order ed on Fin# [id number] Result Comment: THIN PREP TIS PAP Lab: [id number] CLINICAL INFORMATION: None given LMP: None given prev. Pap: None given prev. Bx: None given SOURCE: None given STATEMENT OF ADEQUACY: Satisfactory for evaluation. Endocervical/transformation zone component absent. INTERPRETATION/RESULT: Cytology Results: Negative for intraepithelial lesion or malignancy. COMMENT: This Pap test has been evaluated with computer assisted technology. AND RESCUE FIRE FIGHTER CRASH FIRE: CLAUDIA DENNIS(ASCP) CT screening location: [facility] [place] [address]. For questions contact [facility] Client Services at [phone] EXPLANATORY NOTE: The Pap is a screening test for cervical cancer. It is not a diagnostic test and is subject to false negative and false positive results. It is most reliable when a satisfactory sample, regularly obtained, is submitted with relevant clinical findings and history, and when the Pap result is evaluated along with historic and current clinical information. PERFORMING SITE: [facility] [address] [address] Business Banking Manager: PORFIRIO SAMANO MD, CLIA: [id number] Performed By: #### C [id number] #### [facility] [address] [place] [address] Instructional Materials Director: Aftab Mcguire MD GP HPVon 08-18-2023 GP HPV Negative Normal [facility] Comment on above: Order Comment: Order ed on Fin# [id number] Result Comment: This HPV assay is being performed via a second generation NAAT that utilizes target capture, child and adolescent psychiatrist mediated amplification and dual kenetic assay technologies. Performed By: #### C [id number] #### [facility] [address] [place] [address] Instructional Materials Director: Aftab Mcguire MD [facility] Physician Progress No rosita 08-16-2023 [facility] Physician Progress Note RAVEN PINK :1990 Registration Date:08/16/2023 Assessment/Plan This Visit Diagnosis 1. Cervical cancer screening Z12.4 discussed health maintenance. paps every 3 years if wnl. self-breast exams monthly. taught exam in detail. daily multi-vitamin and Calcium/Vitamin D. mammograms to start at 40 yo. Ordered: THIN PREP IMAGE SEND OUT, ROUTINE, 08/16/2023, Specimen type: 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 Spec, Cervix, Dx: Cervical cancer screening 2. Encounter for screening for human papillomavirus (HPV) Z11.51 Ordered: GP HPV, ROUTINE, 08/16/2023, Specimen type: Cervical, Dx: Encounter for screening for human papillomavirus (HPV) 3. Cervical smear, as part of routine gynecological examination Z01.419 Orders: tranexamic acid = TXA(Lysteda 650 mg oral tablet), 1300 mg= 2 tabs, ORAL, TID, 4 refills Medication Reconciliation What How Much When Instructions Changed tranexamic acid = TXA (Lysteda 650 mg oral tablet) 2 Tabs Oral THREE TIMES A DAY Pickup at [facility] Unchanged buPROPion (Wellbutrin XL 300 mg/ 24 hours oral tablet, extended release) 1 Tabs Oral DAILY Pickup at [facility] Unchanged amphetamine-dextroamphet amine (Adderall 20 mg oral tablet) Oral TWICE A DAY Contact prescribing physician if questions or concerns Unchanged sertraline (sertraline 100 mg oral tablet) 1 Tabs Oral DAILY Contact prescribing physician if questions or concerns Unchanged valACYclovir (Valtrex 500 mg oral tablet) Oral DAILY Contact prescribing physician if questions or concerns Pharmacy Information [facility] Pharmacy: 1 [facility] DARRYL Fletcher [phone] Chief Complaint Annual physical exam, cycles are normal on Lysteda History of Present Illness annual exam. doing well on lysteda. desires refill. no complaints. Review of Systems Constitutional: Negative for chills, fatigue, or fever Gastrointestinal: Negative for abdominal pain, constipation, diarrhea, nausea and vomiting. Genitourinary: per hpi Skin: Negative for rash. Neurological: Negative for dizziness, syncope and headaches. Psychiatric/Behavioral: Negative for agitation, behavioral problems, confusion, self-injury and suicidal ideas. Physical Exam Vitals & Measurements BP: 142/80 HT: 163 cm WT: 95 kg BMI: 35.76 LMP: 07/18/2023 00:00 EDT Depression Screening Scores No Depression Screening data available for this encounter. Fall Risk Assessment Is the patient ambulatory (mobile): Yes (08/16/23 13:34:00) Have you had a fall within the past: No (08/16/23 13:34:00) Have you had 2 or more falls in the past: No (08/16/23 13:34:00) Physical Exam Constitutional: Appearance: She is well-developed. Genitourinary: Pelvic exam was performed with patient in the lithotomy position. Bladder normal, non tender. No urethral prolapse, tenderness or mass present. Vulva, no lesions, rash, or tenderness. No lesions in the vagina. No vaginal discharge or tenderness. Right Adnexa: not tender and no mass present. Left Adnexa: not tender and no mass present. No cervical discharge, friability or polyp. Uterus is not enlarged or tender. Breasts: Right: No mass, nipple discharge, skin change or tenderness. Left: No mass, nipple discharge, skin change or tenderness. Chest: Chest wall: No lacerations, deformity or tenderness. Abdominal: General: There is no distension. Palpations: Abdomen is soft. Tenderness: There is no abdominal tenderness. Neurological: Mental Status: She is alert and oriented to person, place, and time. Skin: General: Skin is warm and dry. Findings: No acne, erythema, lesion or rash. Psychiatric: Attention and Perception: Attention and perception normal. Mood and Affect: Mood and affect normal. Speech: Speech normal. Behavior: Behavior normal. Behavior is cooperative. Thought Content: Thought content normal. Cognition and Memory: Cognition normal. Judgment: Judgment normal. Vitals reviewed. 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 Screening Date of Last Pap Smear08/16/2022 Last Pap Result, Pt StatedNegative OB History History (2,0,0,2) # 1 Baby 1 Outcome Date: 2015 Outcome or Result: Vaginal Gest Age: 39 weeks Outcome: Live Sex: Male # 2 Baby 1 Outcome Date: 2017 Outcome or Result: Vaginal Gest Age: 39 weeks Outcome: Live Sex: Female Problem List/Past Medical History Ongoing ADHD Anxiety and depression Cervical cancer screening Cervical smear, as part of routine gynecological examination Encounter for screening for human papillomavirus (HPV) Herpes Irregular menses PCOS (polycystic ovarian syndrome) PMS (premenstrual syndrome) Historical Procedure/Surgical History Left Ankle Fract (more content not included)... Normal [facility] Ambulatory Clinical Summaryo n 08-16-2023 Ambulatory Clinical Summary RAVEN PINK :1990 Registration Date:08/16/2023 Ambulatory Visit Instructions Your Diagnosis Cervical cancer screening Encounter for screening for human papillomavirus (HPV) Cervical smear, as part of routine gynecological examination Your Care Team Attending Physician - OBIE SUAREZ, TIFFANI Procedures Performed Left Ankle Fracture Repair with Hardware Discharge Vitals Blood Pressure 142/80 Height 64.17 in (163 cm) Weight 209.48 lb (95 kg) BMI 35.76 Systolic Blood Pressure: 142 mmHg High (08/16/23 13:34:00) Diastolic Blood Pressure: 80 mmHg (08/16/23 13:34:00) Mean Arterial Pressure: 101 mmHg (08/16/23 13:34:00) Height/Length Measured: 163 cm (08/16/23 13:34:00) Weight Measured: 95 kg (08/16/23 13:34:00) Body Mass Index Measured: 35.76 kg/m2 (08/16/23 13:34:00) Weight Measured - lbs2: 210.2 lb (08/16/23 13:34:00) Height/Length Measured - in2: 64 in (08/16/23 13:34:00) Body Mass Index Measured English2: 36.08 kg/m2 (08/16/23 13:34:00) BSA: 2.07 m2 (08/16/23 13:34:00) Ht/Wt Measurement Refused by Patient?2: No (08/16/23 13:34:00) Last Menstrual Period: 07/18/23 (08/16/23 13:34:00) What to do next Scheduled Follow-Up Appointments No results Medications What How Much When Instructions Unchanged amphetamine-dextroamphet amine (Adderall 20 mg oral tablet) Oral TWICE A DAY Unchanged buPROPion (Wellbutrin XL 300 mg/ 24 hours oral tablet, extended release) 1 Tabs Oral DAILY Pickup at [facility] Unchanged sertraline (sertraline 100 mg oral tablet) 1 Tabs Oral DAILY Unchanged tranexamic acid = TXA (Lysteda 650 mg oral tablet) Oral THREE TIMES A DAY Unchanged valACYclovir (Valtrex 500 mg oral tablet) Oral DAILY Pharmacy Information [facility] Pharmacy: 1 [facility] DARRYL Fletcher [phone] Problems Ongoing - Any problem that you are currently receiving treatment for. ADHD Anxiety and depression Cervical cancer screening Cervical smear, as part of routine gynecological examination Encounter for screening for human papillomavirus (HPV) Herpes Irregular menses PCOS (polycystic ovarian syndrome) PMS (premenstrual syndrome) Common Emergency Awareness Tips IS IT A STROKE? Act FAST and Check for these signs: FACE Does the face look uneven? ARM Does one arm drift down? SPEECH Does their speech sound strange? TIME Call at any sign of stroke Heart Attack Signs Chest discomfort: Most heart attacks involve discomfort in the center of the chest and lasts more than a few minutes, or goes away and comes back. It can feel like uncomfortable pressure, squeezing, fullness or pain. Discomfort in upper body: Symptoms can include pain or discomfort in one or both arms, back, neck, jaw or stomach. Shortness of breath: With or without discomfort. Other signs: Breaking out in a cold sweat, nausea, or lightheaded. Remember, MINUTES DO MATTER. If you experience any of these heart attack warning signs, call to get immediate medical attention! Normal [facility] Comprehensive Intake - Texto n 08-16-2023 Comprehensive Intake - Text Comprehensive Intake Entered On: 08/16/2023 13:35 EDT Performed On: 08/16/2023 13:34 EDT by Sharmin Graham MA Summary Chief Complaint : Annual physical exam, cycles are normal on Lysteda Last Menstrual Period : 07/18/2023 EDT Bladder Control Issues? : No Urine Leakage? : Yes Presence or absence of urinary incontinence assessed : Yes CPT-II Medication list doc'd in medical record : Yes Influenza immunization administered or previously received : No Pneumococcal vaccine administered or previously received : No Sharmin Graham MA - 08/16/2023 13:34 EDT Measurements Ht/Wt Measurement Refused by Patient? : No Weight Measured : 95 kg(Converted to: 209 lb 7 oz, 209.439 lb) Height/Length Measured : 163 cm(Converted to: 5 ft 4 in, 64.17 in) Body Mass Index Measured : 35.76 kg/m2 Body Mass Index documented : Yes Weight Measured - lbs : 210.2 lb(Converted to: 210 lb 3 oz, 95 kg) Height/Length Measured - in : 64 in(Converted to: 5 ft 4 in, 163 cm) Body Mass Index Measured Japanese : 36.08 kg/m2 BSA Japanese : 2.07 m2 Sharmin Graham MA - 08/16/2023 13:34 EDT Vitals Require BP : Yes Systolic Blood Pressure : 142 mmHg (HI) Diastolic Blood Pressure : 80 mmHg Mean Arterial Pressure : 101 mmHg Last Systolic BP : greater than or equal to 140 mmHg Last Diastolic BP : 80-89 mmHg Pain Present : No actual or suspected pain Pain : 0 Pain severity quantified : No pain present Sharmin Graham MA - 08/16/2023 13:34 EDT Infection Screening Travel outside of [place] within past 21 days? : No Positive COVID test in the last 10 days? : No Exposure to and/or close contact with a person who has a laboratory-confirmed COVID test within the last 48 hours. : No Coronavirus New Symptoms w/o Cause : No Sharmin Graham MA - 08/16/2023 13:34 EDT Depression Screening Is patient currently : Active Diagnosis of Depression Sharmin Graham MA - 08/16/2023 13:34 EDT Problems (As Of: 08/16/2023 13:36:23 EDT) Problems(Active) ADHD (SNOMED CT :2757916052 ) Name of Problem: ADHD ; Recorder: Sharmin Graham MA; Confirmation: Confirmed ; Classification: Medical ; Code: 5356510671 ; Contributor System: Playteau ; Last Updated: 08/15/2023 11:47 EDT ; Life Cycle Date: 08/15/2023 ; Life Cycle Status: Active ; Vocabulary: SNOMED CT Anxiety and depression (SNOMED CT :187352545 ) Name of Problem: Anxiety and depression ; Recorder: Santos CLARK Sharmin S; Confirmation: Confirmed ; Classification: Medical ; Code: [id number] ; Contributor System: PowerChart ; Last Updated: 08/15/2023 11:46 EDT ; Life Cycle Date: 08/15/2023 ; Life Cycle Status: Active ; Vocabulary: SNOMED CT Herpes (SNOMED CT :459428977 ) Name of Problem: Herpes ; Recorder: Santos CLARK Sharmin Chahal; Confirmation: Confirmed ; Classification: Medical ; Code: 632452251 ; Contributor System: PowerChart ; Last Updated: 08/16/2023 13:34 EDT ; Life Cycle Date: 08/16/2023 ; Life Cycle Status: Active ; Vocabulary: SNOMED CT Irregular menses (SNOMED CT :322632792 ) Name of Problem: Irregular menses ; Recorder: Sharmin Graham MA; Confirmation: Confirmed ; Classification: Medical ; Code: [id number] ; Contributor System: PowerChart ; Last Updated: 08/15/2023 11:52 EDT ; Life Cycle Date: 08/15/2023 ; Life Cycle Status: Active ; Vocabulary: SNOMED CT PCOS (polycystic ovarian syndrome) (SNOMED CT :305539466 ) Name of Problem: PCOS (polycystic ovarian syndrome) ; Recorder: Santos CLARKSharmin; Confirmation: Confirmed ; Classification: Medical ; Code: [id number] ; Contributor System: PowerChart ; Last Updated: 08/16/2023 13:36 EDT ; Life Cycle Date: 08/16/2023 ; Life Cycle Status: Active ; Vocabulary: SNOMED CT PMS (premenstrual syndrome) (SNOMED CT :415349642 ) Name of Problem: PMS (premenstrual syndrome) ; Recorder: Santos Sharmin CLARK; Confirmation: Confirmed ; Classification: Medical ; Code: [id number] ; Contributor System: PowerChart ; Last Updated: 08/15/2023 11:48 EDT ; Life Cycle Date: 08/15/2023 ; Life Cycle Status: Active ; Vocabulary: SNOMED CT Family History Family History (As Of: 08/16/2023 13:35:56 EDT) Grandmother: Maternal Grandmother Full Name: Maternal Grandmother ; Relation: Grandmother ; Nomenclature: Breast cancer.. ; Comments: 08/15/2023 11:56 EDT - Santos CLARK Sharmin Fela in her 60's ; Value: Positive Other: Paternal Grandmother Full Name: Paternal Grandmother ; Relation: Other ; Nomenclature: Breast cancer.. ; Comments: 08/15/2023 11:56 EDT - Santos CLARK Sharmin Fela in her 60's ; Value: Positive Social History Social History (As Of: 08/16/2023 13:35:56 EDT) Alcohol: Denies Alcohol Use (Last Updated: 08/15/2023 11:48:39 EDT by Sharmin Graham MA ) Tobacco: Never (less than 100 in lifetime) Tobacco Use:. (Last Updated: 08/16/2023 13:34:38 EDT by Sharmin Graham MA) Substance Abuse: Denies Substance Abuse (Last Updated: 08/15/2023 11:48:48 EDT by Sharmin Graham MA ) Sexual: Sexually active: Yes. (Last Updated: 08/15/2023 11:52:09 EDT by (more content not included)... 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 Visit Entered On : 08/15/2023 11:55 EDT Performed On: 08/15/2023 11:54 EDT by Sharmin Graham MA 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 Screenings Date of Last Pap Smear : 08/16/2022 Last Pap Result : Negative Sharmin Graham MA - 08/15/2023 11:54 EDT Normal [facility] Radiologyon 04-16-2022 US Thyroid gland Normal MP-Chris guevara Work Phone: Pain Mgt Drug Panel, Hi Res, Uron 09-18-2021 6-acetylmorphine (cutoff 20 ng/mL) Not detected Normal [facility] 7-Aminoclonazepam (cutoff 40 ng/mL) Not detected Normal [facility] Ceqpl-EQ-Efapmddqob (cutoff 20 ng/mL) Not detected Normal [facility] Jypam-CG-Enorarqxg (cutoff 20 ng/mL) Not detected Normal [facility] Alprazolam (cutoff 40 ng/mL) Not detected Normal [facility] Amphetamine (cutoff 100 ng/mL) Present Normal [facility] Barbiturates (cutoff 200 ng/mL) Not detected Normal [facility] Benzoylecgonine Ql (U) Not detected Normal [facility] Buprenorphine (cutoff 5 ng/mL) Not detected Normal [facility] Carisoprodol (cutoff 100 ng/mL) Not detected Normal [facility] Comment on above: Result Comment: The carisoprodol immunoassay has cross- reactivity to carisoprodol and meprobamate. Clonazepam (cutoff 20 ng/mL) Not detected Normal [facility] Codeine (cutoff 40 ng/mL) Not detected Normal [facility] Creatinine, Urine 252.2 mg/dL Normal 20.0-400.0 [facility] Diazepam (cutoff 50 ng/mL) Not detected Normal [facility] EER Pain Mgt Drug Panel High Res/EMIT U See Note Normal [facility] Comment on above: Result Comment: Auth orized individuals can access the [employer] Enhanced Report using the following link: [email or web address] Performed By: [employer] [address] [place] [id number] Business Banking Manager: Taylor Mccullough MD Ethyl Glucuronide (cutoff 500 ng/mL) Not detected Normal [facility] Fentanyl (cutoff 2 ng/mL) Not detected Normal [facility] Gabapentin (cutoff 100 ng/mL) Not detected Normal [facility] Hydrocodone (cutoff 40 ng/mL) Not detected Normal [facility] Hydromorphone (cutoff 40 ng/mL) Not detected Normal [facility] Lorazepam (cutoff 60 ng/mL) Not detected Normal [facility] Marijuana Metabolite (cutoff 20 ng/mL) Present Normal [facility] MDA (cutoff 200 ng/mL) Not detected Normal [facility] MDEA-[place] (cutoff 200 ng/mL) Not detected Normal [facility] MDMA-Ecstasy (cutoff 200 ng/mL) Not detected Normal [facility] Meperidine metabolite (cutoff 50 ng/mL) Not detected Normal [facility] Methadone Ql (U) Not detected Normal [facility] Methamphetamine (cutoff 400 ng/mL) Not detected Normal [facility] Methylphenidate (cutoff 100 ng/mL) Not detected Normal [facility] Midazolam (cutoff 20 ng/mL) Not detected Normal [facility] Morphine (cutoff 20 ng/mL) Not detected Normal [facility] Naloxone (cutoff 100 ng/mL) Not detected Normal [facility] Norbuprenorphine (cutoff 20 ng/mL) Not detected Normal [facility] Nordiazepam (cutoff 50 ng/mL) Not detected Normal [facility] Norfentanyl (cutoff 2 ng/mL) Not detected Normal [facility] Norhydrocodone (cutoff 100 ng/mL) Not detected Normal [facility] Noroxycodone (cutoff 100 ng/mL) Not detected Normal [facility] Noroxymorphone (cutoff 100 ng/mL) Not detected Normal [facility] Oxazepam (cutoff 50 ng/mL) Not detected Normal [facility] Oxycodone (cutoff 40 ng/mL) Not detected Normal [facility] Oxymorphone (cutoff 40 ng/mL) Not detected Normal [facility] Pain Management Drug Panel See Below Normal [facility] Comment on above: Result Comment: Meth odology: Qualitative Enzyme Immunoassay and Qualitative Liquid Chromatography-Tandem Mass Spectrometry, Quantitative Spectrophotometry The absence of expected drug(s) and/or drug metabolite(s) may indicate non-compliance, inappropriate timing of specimen collection relative to drug administration, poor drug absorption, diluted/adulterated urine, or limitations of testing. The concentration must be greater than or equal to the cutoff to be reported as present. If specific drug concentrations are required, contact the laboratory within two weeks of specimen collection to request quantification by a second analytical technique. Interpretive questions should be directed to the laboratory. Results based on immunoassay detection that do not match clinical expectations should be interpreted with caution. Confirmatory testing by mass spectrometry for immunoassay-based results is available, if ordered within two weeks of specimen collection. Additional charges apply. For medical purposes only; not valid for forensic use. This test was developed and its performance characteristics determined by [employer]. It has not been cleared or approved by the [place] Food and Drug Administration. This test was performed in a CLIA certified laboratory and is intended for clinical purposes. PCP (cutoff 25 ng/mL) Not detected Normal [facility] Phentermine (cutoff 100 ng/mL) Not detected Normal [facility] Pregabalin (cutoff 100 ng/mL) Not detected Normal [facility] Tapentadol (cutoff 100 ng/mL) Not detected Normal [facility] Smzjbdskbg-n-Erhx (cutoff 200 ng/mL) Not detected Normal [facility] Temazepam (cutoff 50 ng/mL) Not detected Normal [facility] Tramadol (cutoff 200 ng/mL) Not detected Normal [facility] Zolpidem (cutoff 20 ng/mL) Not detected Normal [facility] Culture, Throaton 06-04-2021 Culture, Throat ORDER#: [id number] ORDERED BY: CONCHA MA SOURCE: Throat Throat COLLECTED: 06/04/21 19:05 ANTIBIOTICS AT PEDRO.: RECEIVED : 06/04/21 20:07 Culture, Throat FINAL 06/07/21 11:03 Cult,Throat: Oral mikhail, negative for Group A Strep and other beta Cult,Throat: hemolytic streptococci Performed at [place] [id number] [place] [address] ([phone] [facility] Comment on above: Performed By: #### C XTHR #### [facility] [address] [facility] [id number] BASIC METABOLIC PANELon 12-2 Anion gap [Moles/Vol] 14 mmol/L Normal - [facility] Comment on above: Performed By: #### B MP #### [facility] [address] [place] [address] Calcium [Mass/Vol] 10.0 mg/dL Normal 8.6 - 10.3 [facility] Comment on above: Performed By: #### B MP #### [address] [address] Chloride [Moles/Vol] 100 mmol/L Normal 98 - 107 [facility] Comment on above: Performed By: #### B MP #### [address] [address] Creatinine [Mass/Vol] 0.73 mg/dL Normal 0.50 - 1.05 [facility] Comment on above: Performed By: #### B MP #### [address] [address] GFR- AM. >60 Normal >60 [facility] Comment on above: Result Comment: CALC ULATIONS OF ESTIMATED GFR ARE PERFORMED USING THE MDRD STUDY EQUATION FOR THE IDMS-TRACEABLE CREATININE METHODS. CLIN CHEM 2007;53:766-72 Performed By: #### B MP #### [address] [address] GFR-NON AM. >60 Normal >60 [facility] Comment on above: Performed By: #### B MP #### [address] [address] Glucose [Mass/Vol] 92 mg/dL Normal 74 - 99 [facility] Comment on above: Performed By: #### B MP #### [address] [address] HCO3 (Bld) [Moles/Vol] 23 mmol/L Normal 21 - 32 [facility] Comment on above: Performed By: #### B MP #### [address] [address] Potassium [Moles/Vol] 3.6 mmol/L Normal 3.5 - 5.3 [facility] Comment on above: Performed By: #### B MP #### [address] [address] Sodium [Moles/Vol] 133 mmol/L Low 136 - 145 [facility] Comment on above: Performed By: #### B MP #### [address] [address] Urea nitrogen [Mass/Vol] 9 mg/dL Normal 6 - 23 [facility] Comment on above: Performed By: #### B MP #### [address] [address] CBC AND DIFFERENTIALon 03-25 DIFFERENTIAL SEE MANUAL DIFF Normal [facility] Comment on above: Performed By: #### C BCDF #### [place] [id number] Erythrocyte distribution width (RBC) [Ratio] 13.4 % Normal 11.5 - 14.5 [facility] Comment on above: Performed By: #### C BCDF #### [place] [id number] Hematocrit (Bld) [Volume fraction] 37.9 % Normal 36.0 - 46.0 [facility] Comment on above: Performed By: #### C BCDF #### [place] [id number] Hemoglobin (Bld) [Mass/Vol] 12.7 g/dL Normal 12.0 - 16.0 [facility] Comment on above: Performed By: #### C BCDF #### [place] [id number] MCHC (RBC) [Mass/Vol] 33.6 g/dL Normal 32.0 - 36.0 [facility] Comment on above: Performed By: #### C BCDF #### [address] [address] MCV (RBC) [Entitic vol] 86 fL Normal 80 - 100 [facility] Comment on above: Performed By: #### C BCDF #### [address] [address] Platelets (Bld) [#/Vol] 309 10*3/uL Normal 150 - 450 [facility] Comment on above: Performed By: #### C BCDF #### [address] [address] RBC 4.39 x10E12/L Normal 4.00 - 5.20 [facility] Comment on above: Performed By: #### C BCDF #### [facility] [address] [place] [address] WBC (Bld) [#/Vol] 7.2 10*3/uL Normal 4.4 - 11.3 [facility] Comment on above: Performed By: #### C BCDF #### [place] [address] [place] [address] CT ABDOMEN AND PELVIS W IV C ONTRASTon 03-25-2021 CT ABDOMEN AND PELVIS W IV CONTRAST Patient Name: RAVEN PINK STUDY: CT ABDOMEN AND PELVIS W IV CONTRAST; 03/25/2021 4:38 pm INDICATION: abd pain, fever, low back pain . COMPARISON: None. ACCESSION NUMBER(S): [id number] ORDERING CLINICIAN: MARCIE DUEÑAS TECHNIQUE: CT of the abdomen and pelvis was performed. 90 mL Omnipaque 350 FINDINGS: LOWER CHEST: Images of the lung bases show no infiltrate or pleural fluid. ABDOMEN: LIVER: There is no hepatic mass. BILE DUCTS: There is no intrahepatic, common hepatic or common bile ductal dilatation. GALLBLADDER: The gallbladder is unremarkable. PANCREAS: The pancreas is unremarkable. SPLEEN: The spleen is unremarkable. There is no splenic mass or splenomegaly. ADRENAL GLANDS: The adrenal glands are unremarkable. KIDNEYS AND URETERS: The kidneys function symmetrically. The kidneys demonstrate no mass. There is no intrarenal calculus or hydronephrosis. BOWEL: There is no bowel wall thickening, dilatation or obstruction. The appendix is normal VESSELS: The abdominal and pelvic vessels are unremarkable. PERITONEUM/RETROPERITONE UM/LYMPH NODES: There is no retroperitoneal or pelvic adenopathy. There is no ascites. ABDOMINAL WALL: The abdominal wall is unremarkable. BONE AND SOFT TISSUE: There is no acute osseous finding. There is no soft tissue abnormality. IMPRESSION: Unremarkable CT of the abdomen and pelvis. Electronically signed by: FRANCHESCA VELA MD Normal [facility] CT Abdomen and Pelvis with I V Contraston 03-25-2021 CT Abdomen and Pelvis W contrast IV Normal MP-Otolaryngo logy-Soraida guevara Work Phone: Complete Blood Count + Diffe rentialon 03-25-2021 Erythrocyte distribution width (RBC) [Ratio] 13.4 % See Below MP-Otolaryngo logy-Soraida d Work Phone: Comment on above: Reference Range: 11. 5 - 14.5 Hematocrit (Bld) [Volume fraction] 37.9 % See Below MP-Otolaryngo logtanya-Soraida d Work Phone: Comment on above: Reference Range: 36. 0 - 46.0 Hemoglobin (Bld) [Mass/Vol] 12.7 g/dL See Below MP-Otolaryngo logtanya-Soraida d Work Phone: Comment on above: Reference Range: 12. 0 - 16.0 MCHC (RBC) [Mass/Vol] 33.6 g/dL See Below MP-Otolaryngo logtanya-Soraida d Work Phone: Comment on above: Reference Range: 32. 0 - 36.0 MCV (RBC) [Entitic vol] 86 fL 80 - 100 MP-Otolaryngo sagar-Soraida d Work Phone: Platelets (Bld) [#/Vol] 309 10*3/uL 150 - 450 MP-Otolaryngo sagar-Soraida d Work Phone: RBC (Bld) [#/Vol] 4.39 {x10E12/L} See Below MP -Otolaryngo logtanya-Soraida d Work Phone: Comment on above: Reference Range: 4.0 0 - 5.20 WBC (Bld) [#/Vol] 7.2 10*3/uL 4.4 - 11.3 MP-Tip laryngo Tiera guevara Work Phone: Complete Blood Count + Differential SEE MANUAL DIFF MP-Otolaryngo sagar-Soraida d Work Phone: HCG,URINEon 03-25-2021 Beta HCG ( test) Ql (U) Negative Normal Negative [facility] Comment on above: Performed By: #### H CGU #### [place] [address] HEPATIC FUNCTION PANELon Albumin [Mass/Vol] 4.3 g/dL Normal 3.4 - 5.0 [facility] Comment on above: Performed By: #### H EPFP #### [address] [address] ALP [Catalytic activity/Vol] 53 U/L Normal 33 - 110 [facility] Comment on above: Performed By: #### H EPFP #### [address] [address] ALT [Catalytic activity/Vol] 23 U/L Normal 7 - 45 [facility] Comment on above: Result Comment: Blank ents treated with Sulfasalazine may generate falsely decreased results for ALT. Performed By: #### H EPFP #### [address] [address] AST [Catalytic activity/Vol] 21 U/L Normal 9 - 39 [facility] Comment on above: Performed By: #### H EPFP #### [address] [address] Bilirubin [Mass/Vol] 0.4 mg/dL Normal 0.0 - 1.2 [facility] Comment on above: Performed By: #### H EPFP #### [address] [address] Bilirubin.indirect [Mass/Vol] 0.1 mg/dL Normal 0.0 - 0.3 [facility] Comment on above: Performed By: #### H EPFP #### [address] [address] Protein [Mass/Vol] 7.8 g/dL Normal 6.4 - 8.2 [facility] Comment on above: Performed By: #### H EPFP #### [address] [address] Hepatic Function Panelon Albumin BCP dye [Mass/Vol] 4.3 g/dL 3.4 - 5.0 -[email or web address] Work Phone: ALP [Catalytic activity/Vol] 53 U/L 33 - 110 -[facility] Work Phone: ALT With P-5'-P [Catalytic activity/Vol] 23 U/L 7 - 45 -[employer] Work Phone: Comment on above: Patients treated wit h Sulfasalazine may generate falsely decreased results for ALT. AST With P-5'-P [Catalytic activity/Vol] 21 U/L 9 - 39 -Otolaryn [employer] Work Phone: Bilirubin [Mass/Vol] 0.4 mg/dL 0.0 - 1.2 -Otolaryngo [employer] Work Phone: Bilirubin.direct [Mass/Vol] 0.1 mg/dL 0.0 - 0.3 -[employer]tol[employer] Work Phone: Protein [Mass/Vol] 7.8 g/dL 6.4 - 8.2 -Tip laryngo [employer] Work Phone: LACTATEon 03-25-2021 Lactate [Moles/Vol] 1.7 mmol/L Normal 0.4 - 2.0 [facility] Comment on above: Result Comment: Keisha puncture immediately after or during the administration of Metamizole may lead to falsely low results. Testing should be performed immediately prior to Metamizole dosing. Performed By: #### L ACT #### [place] [address] LIPASEon 03-25-2021 Lipase [Catalytic activity/Vol] 21 U/L Normal 9 - 82 [facility] Comment on above: Result Comment: Keisha puncture immediately after or during the administration of Metamizole may lead to falsely low results. Testing should be performed immediately prior to Metamizole dosing. Z-ulrogi-n-benzoquinone imine (metabolite of Acetaminophen) will generate erroneously low results in samples for patients that have taken toxic doses of acetaminophen. Performed By: #### L IPAS ####[place] [id number] Laboratory - Chemistry and C hemistry - challengeon 03-25-2021 Anion gap [Moles/Vol] 14 mmol/L 10 - 20 MP-Otolaryngo logy-Sheffiel d Work Phone: Calcium [Mass/Vol] 10.0 mg/dL 8.6 - 10.3 MP-Tip laryngo logy-Sheffiel d Work Phone: Chloride [Moles/Vol] 100 mmol/L 98 - 107 MP-Otolaryngo logy-Sheffiel d Work Phone: CO2 [Moles/Vol] 23 mmol/L 21 - 32 MP-Otolar yngo logy-Judiffiel d Work Phone: Creatinine [Mass/Vol] 0.73 mg/dL See Below MP-Otolaryngo logy-Sheffiel d Work Phone: Comment on above: Reference Range: 0.5 0 - 1.05 Glucose [Mass/Vol] 92 mg/dL 74 - 99 MP-Tip laryngo logy-Sheffiel d Work Phone: Potassium [Moles/Vol] 3.6 mmol/L 3.5 - 5.3 MP-Otolaryngo logy-Sheffiel d Work Phone: Sodium [Moles/Vol] 133 mmol/L below low threshold 136 - 145 MP-Otolaryngo logy-Judiffiel d Work Phone: Urea nitrogen [Mass/Vol] 9 mg/dL 6 - 23 MP-Otolaryngo logy-Sheffiel d Work Phone: Laboratory - Hematology and Cell countson 03-25-2021 Band form neutrophils/100 WBC (Bld) 4.0 % 0.0 - 5.0 MP-Otolaryngo logy-Sheffiel d Work Phone: Basophils/100 WBC (Bld) 0.0 % 0.0 - 2.0 MP-Otolaryngo logy-Sheffiel d Work Phone: Lymphocytes/100 WBC (Bld) 6.0 % See Below MP-Otolaryngo logy-Sheffiel d Work Phone: Comment on above: Reference Range: 13. 0 - 44.0 Monocytes/100 WBC (Bld) 7.0 % 2.0 - 10.0 [facility] [facility] [employer] Work Phone: Lactate, Levelon 03-25-2021 Lactate [Moles/Vol] 1.7 mmol/L 0.4 - 2.0 -Ot [facility] [employer] Work Phone: Comment on above: Venipuncture immedia tely after or during the administration of Metamizole may lead to falsely low results. Testing should be performed immediately prior to Metamizole dosing. Lipase, Serumon 03-25-2021 Lipase [Catalytic activity/Vol] 21 U/L 9 - 82 [facility] Work Phone: Comment on above: Venipuncture immedia tely after or during the administration of Metamizole may lead to falsely low results. Testing should be performed immediately prior to Metamizole dosing. S-ncamjt-r-benzoquinone imine (metabolite of Acetaminophen) will generate erroneously low results in samples for patients that have taken toxic doses of acetaminophen. MANUAL DIFFERENTIALon 2020 % BAND NEUTROPHIL 4.0 % Normal 0.0 - 5.0 [facility] Comment on above: Performed By: #### M DIFF ####[address] [address] % BASOPHIL 0.0 % Normal 0.0 - 2.0 [facility] Comment on above: Performed By: #### M DIFF ####[address] [address] % EOSINOPHIL 2.0 % Normal 0.0 - 6.0 [facility] Comment on above: Performed By: #### M DIFF ####[address] [address] % LYMPHOCYTE 6.0 % Normal 13.0 - 44.0 [facility] Comment on above: Performed By: #### M DIFF ####[address] [address] % MONOCYTE 7.0 % Normal 2.0 - 10.0 [facility] Comment on above: Performed By: #### M DIFF ####[address] [address] % SEG NEUTROPHIL 81.0 % Normal 40.0 - 80.0 [facility] Comment on above: Result Comment: Perc ent differential counts (%) should be interpreted in the context of the absolute cell counts (cells/L). Performed By: #### M DIFF ####[place] [address] ANC 6.12 x10E9/L Normal 1.20 - 7.70 [facility] Comment on above: Performed By: #### M DIFF ####[place] [address] BAND NEUTROPHIL 0.29 x10E9/L Normal 0.00 - 0.70 [facility] Comment on above: Performed By: #### M DIFF ####[place] [id number] BASOPHIL 0.00 x10E9/L Normal 0.00 - 0.10 [facility] Comment on above: Performed By: #### M DIFF ####[address] [address] EOSINOPHIL 0.14 x10E9/L Normal 0.00 - 0.70 [facility] Comment on above: Performed By: #### M DIFF ####[place] [address] LYMPHOCYTE 0.43 x10E9/L Low 1.20 - 4.80 [facility] Comment on above: Performed By: #### M DIFF ####[address] [address] MONOCYTE 0.50 x10E9/L Normal 0.10 - 1.00 [facility] Comment on above: Performed By: #### M DIFF ####[place] [address] SEG NEUTROPHIL 5.83 x10E9/L Normal 1.20 - 7.00 [facility] Comment on above: Performed By: #### M DIFF ####[facility] Panel Informationon 03-25 NORMAL MP-Otolaryngo logy-Sheffiel d Work Phone: 0.00 {x10E9/L} See Below MP-Otolary leung logy-Sheffiel d Work Phone: Comment on above: Reference Range: 0.0 0 - 0.10 0.14 {x10E9/L} See Below MP-Otolary leung logy-Sheffiel d Work Phone: Comment on above: Reference Range: 0.0 0 - 0.70 0.50 {x10E9/L} See Below MP-Otolary leung logy-Sheffiel d Work Phone: Comment on above: Reference Range: 0.1 0 - 1.00 0.43 {x10E9/L} below low threshold See Below MP-Otolaryngo logy-Sheffiel d Work Phone: Comment on above: Reference Range: 1.2 0 - 4.80 0.29 {x10E9/L} See Below MP-Otolary leung logy-Sheffiel d Work Phone: Comment on above: Reference Range: 0.0 0 - 0.70 5.83 {x10E9/L} See Below MP-Otolary leung logy-Sheffiel d Work Phone: Comment on above: Reference Range: 1.2 0 - 7.00 6.12 {x10E9/L} See Below MP-Otolary leung logy-Sheffiel d Work Phone: Comment on above: Reference Range: 1.2 0 - 7.70 2.0 % 0.0 - 6.0 MP-Otolaryngo logy-Sheffiel d Work Phone: 81.0 % See Below MP-Otolaryngo logy-Sheffiel d Work Phone: Comment on above: Reference Range: 40. 0 - 80.0 Percent differential counts (%) should be interpreted in the context of the absolute cell counts (cells/L). >60 >60 MP-Otolaryngo sagarVonnie guevara Work Phone: Comment on above: CALCULATIONS OF OWEN MATED GFR ARE PERFORMED USING THE MDRD STUDY EQUATION FOR THE IDMS-TRACEABLE CREATININE METHODS. CLIN CHEM 2007;53:766-72 Provider Note - ED v3on - Provider Note - ED v3 Provider Note: Chart Review: ED NOTES ED NOTES: ====HPI==== Patient is a 30-year-old female who presents to the emergency department with a chief complaint of lower back and right leg pain. She also reports numbness in bilateral hands and feet. She states that she has been upset today. She states that she is in a lot of pain. She denies any bowel or bladder incontinence or retention or saddle anesthesia. She also reports that she believes she had a fever earlier this morning. She denies any abdominal pain. No chest pain or shortness of breath. She states that she was vaccinated against Covid. PMHX: Denies Social HX: Denies TOBACCO Denies ETOH Denies DRUGS ====Review of Systems==== 10 point system review is negative except for those specifically mentioned in history of present illness ====Physical Exam==== Constitutional/General: Alert and oriented x3, well appearing, nontoxic, appears anxious Head: Normocephalic and atraumatic. Eyes: EOMI, conjunctive normal, sclera nonicteric, subconjunctival layer is pink. Mouth: Oropharynx clear, handling secretions, no trismus, no asymmetry of the posterior oropharynx or uvular edema Neck: Supple, full ROM, non tender to palpation in the midline, no stridor, no crepitus, no meningeal signs. Trachea at midline. Respiratory: Lungs clear to auscultation bilaterally, no wheezes, rales, or rhonchi, not in respiratory distress. Cardiovascular: Regular rate, regular rhythm, no murmurs, gallops, or rubs, 2+ distal pulses. Chest: normal chest wall movement GI: Abdomen soft, nontender, nondistended, + BS, no organomegaly, no palpable masses, no rebound, guarding, or rigidity. Musculoskeletal: Moves all extremities x4, warm and well perfused, no clubbing, cyanosis, or edema, cap refill <3 seconds Integument: Skin warm and dry, no rashes. Lymphatic: No lymphadenopathy noted. Neurologic: GCS 15, no focal deficits, symmetric strength 5/5 in the upper and lower extremities bilaterally. Psychiatric: Normal affect. ====ED Course and Medical Decision Making==== See MDM section for review of findings & plan of care. Portions of this note were dictated by speech recognition. An attempt at proof reading was made to minimize errors. Minor errors in child and adolescent psychiatrist may be present. Please call if questions.. HISTORY OF PRESENTING ILLNESS RAVEN is a 30 year old Female and was seen by me at 25-Mar-2021 14:28 for a chief complaint of (pt complains of lower back and right leg pain, numbness in bilateral hands and numbness in bilateral feet for past 5 hours)(1). Triage Information: Most recent Vital Sign Value Date Temp (F): 99.5 03-25-2021 13:58 Temp (C): 37.5 03-25-2021 13:58 Heart Rate (beats/min): 99 03-25-2021 13:58 Respirations (breaths/min): 20 03-25-2021 13:58 SpO2 (%): 100 03-25-2021 13:58 BP Systolic (mm Hg): 125 03-25-2021 13:58 BP Diastolic (mm Hg): 72 03-25-2021 13:58 PAST MEDICAL HISTORY ALLERGIES/INTOLERANCES: No Known Allergies HEALTH HISTORY: No documented data. OUTPATIENT MEDICATIONS: Home Medications Review Status for Reconciliation: Complete Med Status: Patient Currently Takes Medications Drug Name: dextroamphetamine-amphet amine 20 mg oral capsule, extended release Instructions: 1 cap(s) orally once a day (in the morning) Drug Name: sertraline 100 mg oral tablet Instructions: 1 tab(s) orally once a day (in the morning) Drug Name: valACYclovir 500 mg oral tablet Instructions: 1 tab(s) orally once a day, As Needed cold sores Drug Name: loratadine 10 mg oral tablet Instructions: 1 tab(s) orally once a day, As Needed SIGNIFICANT EVENTS: No documented data. MDM MDM/ED COURSE: Patient is a 30-year-old female who presents with a right back pain radiating down her right leg. She was extremely anxious upon arrival. She reported she had tingling in bilateral hands and feet. Neuro exam was normal. No loss of sensation. She denies any bowel or bladder incontinence or retention. No saddle anesthesia. She was given medication for pain and a work-up was pursued. CT scan of the abdomen pelvis is unremarkable for acute process. Laboratory studies are also unremarkable. Patient is much more relaxed states that she feels much better. She'll be discharged home with recommended follow-up with her primary care physician return for any new or worsening symptoms. I do feel that she has a sciatic component. OARRS was reviewed and patient has an active prescription for Adderall. No narcotic medication was listed. DISPOSITION Diagnosis/Annotation: ED Dx Name:Acute low back pain with sciatica Code:M54.40 Disposition: discharged CONSULT CRITICAL CARE TIME Is this a critically ill patient: no Electronic Signatures: Marcie Dueñas (PAC) (Signed 25-Mar-2021 18:53) Authored: ED Notes, HPI, PMH, MDM/ED Course, Clinical Impression, (more content not included)... Normal [facility] RED CELL MORPHOLOGYon 2020 RBC morphology finding Nom (Bld) NORMAL Normal [facility] Comment on above: Performed By: #### M ORP2 #### [place] [address] Risk Screen - Adult Emergenc yon 03-25-2021 Risk Screen - Adult Emergency Preferred Language: Preferred Language: Preferred Language for Discussing Health Care (patient/designee)Adela escalante Advanced Directives: Advance Directive/DNRno Family Violence Adult: Abuse Screen: Are you or have you been threatened or abused physically, emotionally, or sexually by anyoneno Learning Assessment (Patient): Learning Assessment (Patient): Patient is Able to be Assessed for Learningyes Factors Influencing Readiness to Learnacuteness of illness Factors that Impact Ability to Learnnone Devices/Methods Used to Communicatenone Learning Preferencesindividual instruction; audio Cultural Considerationsnone Developmental Considerationsnone Advent Considerationsnone Learning Assessment (Other Learner): Learning Assessment (Other Learner): Other learner availableno Pressure Injury/TB/Substance: Pressure Injury: Pressure Injury Present on Admissionno Do you have a coughno Smoking Statusnever smoker Alcohol Usedenies Drug Usedenies Drug 2 Usedenies Admission Risk Screen: Significant IndicatorsComplete CAGE: CAGE: Is this an injured patient at a Trauma Center ([facility] [place]/[facility]/[place] /[place]): no Electronic Signatures: Tommy Phipps (RN) (Signed 25-Mar-2021 14:04) Authored: Preferred Language, Advanced Directives, Family Violence Adult, Learning Assessment (Patient), Learning Assessment (Other Learner), Pressure Injury/TB/Substance, Pressure Injury, CAGE Last Updated: 25-Mar-2021 14:04 by Tommy Phipps (RN) Normal [facility] TSHon 03-25-2021 TSH Qn 1.86 m[IU]/L Normal 0.44 - 3.98 [facility] Comment on above: Result Comment: TSH testing is performed using different testing methodology at [facility] than at [facility]. Direct result comparisons should only be made within the same method. Performed By: #### T SH2 #### [place] [address] TSH - Thyroid Stimulating Ho jessica Serumon 03-25-2021 TSH Qn 1.86 m[IU]/L See Below MP-Otolaryng yaneth guevara Work Phone: Comment on above: Reference Range: 0.4 4 - 3.98 TSH testing is performed using different testing methodology at [facility] than at [facility]. Direct result comparisons should only be made within the same method. Triage - EDon 03-25-2021 Triage - ED Quick Triage: Are You maybe Have You Given In The Last 6 Weeksno Are You Currently Breastfeedingno Chart Review: ARRIVAL INFORMATION Mode of Arrival: private vehicle CHIEF COMPLAINT RAVEN PINK is a Female patient with a chief complaint of (pt complains of lower back and right leg pain, numbness in bilateral hands and numbness in bilateral feet for past 5 hours). Triage Date/Time: 25-Mar-2021 13:59 GIULIANA: 3 Pain Rating (0-10): 8 = Severe Pain location: right leg Vital Signs: Temperature: 99.5F ( 37.5C) Blood Pressure: 125/72 Mean: Heart Rate: 99 Respiratory Rate: 20 Pulse Oximetry: 100% Height: 5 feet 2.00 inches. 157.4 CM Weight: 204.8 pounds. Calculated 92.9 kg. Calculated BMI (kg/m2): 37.497 Calculated BSA (m2) 2.02 [place] Coma Scale: Best Eye Response: (E4) spontaneous Best Motor Response: (M6) obeys commands Best Verbal Response: (V5) oriented Iveth Score: 15 Cough lasting greater than 3 weeks: no Allergies: no Mask applied: no Last menstrual period: 24-Feb-2021 Patient has homicidal thoughts: no Risk Screens Suicide Risk Screen In the Past Month: Have you wished you were or wished you could go to sleep and not wake up no In the Past Month: Have you had any actual thoughts of killing yourself no In Your Lifetime: Have you ever done anything, started to do anything, or prepared to do anything to end your life no Gauthier Fall Scale Screening Has the patient fallen before (or is the patient in the ED as a result of a fall) has not had a fall Does the patient have an impaired gait does not have impaired gait Is the patient cognitively impaired not cognitively impaired Interventions: Gauthier Fall Interventions: LOW INTERVENTIONS: *patient oriented to surroundings and call system, * patient/family falls education completed and documented, *patients fall status communicated during bedside handoff, *whiteboard updated, *mode of toileting discussed with patient, *bed in low position with brakes locked, *call light in reach, * non-skid footwear TRAVEL HISTORY Travel History Coronavirus Screening: no exposure or symptoms Travel Exposure History: NO travel to International locations in the past 30 days PAIN Pain Scale Used: AAMIR Pain Rating (0-10): 8 = Severe Past Medical History: Past Medical History Reviewedyes Electronic Signatures: Tommy Phipps (FELICITAS) (Signed 25-Mar-2021 15:23) Authored: Quick Triage, Risk Screens, Pain, Travel History, Chart Review, Past Medical History Last Updated: 25-Mar-2021 15:23 by Tommy Phipps (FELICITAS) Normal [facility] URINALYSISon 03-25-2021 Appearance (U) CLEAR Normal CLEAR [facility] Comment on above: Performed By: #### U A #### [address] [address] Bilirubin Ql (U) Negative Normal NEGATIVE [facility] Comment on above: Performed By: #### U A #### [address] [address] Color (U) Straw Normal STRAW,YELLOW [facility] Comment on above: Performed By: #### U A #### [place] [address] Glucose Ql (U) Negative Normal NEGATIVE [facility] Comment on above: Performed By: #### U A #### [place] [address] Hemoglobin Ql (U) Negative Normal NEGATIVE [facility] Comment on above: Performed By: #### U A #### [place] [address] Ketones Ql (U) Negative Normal NEGATIVE [facility] Comment on above: Performed By: #### U A #### [place] [address] Leukocyte esterase Test strip Ql (U) Negative Normal NEGATIVE [facility] Comment on above: Performed By: #### U A #### [place] [id number] Nitrite Ql (U) Negative Normal NEGATIVE [facility] Comment on above: Performed By: #### U A #### [place] [address] pH (U) 9.0 [pH] High 5.0 - 8.0 [facility] Comment on above: Performed By: #### U A #### [place] [id number] Protein Ql (U) Negative Normal NEGATIVE [facility] Comment on above: Performed By: #### U A #### [place] [address] Specific gravity (U) [Rel density] 1.006 Normal 1.005 - 1.035 [facility] Comment on above: Performed By: #### U A #### [place] [address] [place] [address] Urobilinogen (U) [Mass/Vol] mg/dL Normal 0.0 - 1.9 [facility] Comment on above: Performed By: #### U A #### [place] [address] [place] [address] Urinalysison 03-25-2021 Color (U) Straw See Below MP-Otolaryngo logy-[facility] d Work Phone: Comment on above: Reference Range: STR AW,YELLOW Glucose Ql (U) Negative NEGATIVE MP-Otolary leung logy-[employer]ff[facility] d Work Phone: Ketones Ql (U) Negative NEGATIVE MP-Otolary leung logy-[employer] [facility] Work Phone: Leukocyte esterase Test strip Ql (U) Negative NEGATIVE MP-Otolaryngo logy-[facility] Work Phone: pH (U) 9.0 [pH] above high threshold 5.0 - 8.0 MP-Otolaryngo logy-[facility] Work Phone: Protein (U) [Mass/Vol] Negative NEGATIVE MP-Otolaryngo logy-Sheffiel d Work Phone: RBC (U) [#/Vol] Negative NEGATIVE MP-Otolar yngo logy-Sheffiel d Work Phone: Specific gravity (U) [Rel density] 1.006 1 See Below MP-Otolaryngo logy-Sheffiel d Work Phone: Comment on above: Reference Range: 1.0 05 - 1.035 Urinalysis Negative NEGATIVE MP-Otolaryngo logy-She[facility] Work Phone: Urinalysis <2.0 0.0 - 1.9 MP-Otolaryngo logy-[facility]ff[facility] d Work Phone: Urinalysis CLEAR CLEAR MP-Otolaryngo logy-[facility]ff[facility] d Work Phone: Urine Teston 03-25 HCG ( test) Ql (U) Negative Negative MP-Otolaryngo Setred d Work Phone: Radiologyon 03-23-2021 US Thyroid gland Normal MP-Otola ryngo [employer]tanya[employer] Work Phone: US THYROIDon 03-23-2021 US THYROID Patient Name: RAVEN PINK STUDY: US THYROID; 03/23/2021 9:36 am INDICATION: thyroid nodules. Follow-up. COMPARISON: 07/11/2020 ACCESSION NUMBER(S): [id number] ORDERING CLINICIAN: WILFREDO PASCUAL TECHNIQUE: Grayscale and color Doppler ultrasound of the thyroid. FINDINGS: Heterogenous hypoechoic thyroid gland. Hypoechoic solid nodule with peripheral rim calcification in the posterior mid right lobe measuring 11 mm today (image 17 of 44) versus 11 mm previously. Isoechoic solid nodule upper pole left lobe measuring 15 mm today versus 14 mm previously. RIGHT LOBE: 4.4 x 1.4 x 1.4 cm LEFT LOBE: 3.7 x 1.4 x 1.1 cm ISTHMUS: 0.2 cm IMPRESSION: Moderately suspicious rim calcified hypoechoic solid right lobe nodule measures 11 mm today, stable since the prior exam (as discussed above). Attention to this finding is recommended on future follow-up examinations. Electronically signed by: MABLE ROBERTS MD Normal [facility] Pain Mgt Drug Panel, Hi Res, Uron 02-14-2021 6-acetylmorphine (cutoff 20 ng/mL) Not detected Normal [facility] 7-Aminoclonazepam (cutoff 40 ng/mL) Not detected Normal [facility] [facility] Hnqjh-RQ-Skncefuvez (cutoff 20 ng/mL) Not detected Normal [facility] Cdlgb-IH-Ejgaowdbp (cutoff 20 ng/mL) Not detected Normal [facility] Alprazolam (cutoff 40 ng/mL) Not detected Normal [facility] Amphetamine (cutoff 100 ng/mL) Present Normal [facility] Barbiturates (cutoff 200 ng/mL) Not detected Normal [facility] Benzoylecgonine Ql (U) Not detected Normal [facility] Buprenorphine (cutoff 5 ng/mL) Not detected Normal [facility] Carisoprodol (cutoff 100 ng/mL) Not detected Normal [facility] Comment on above: Result Comment: The carisoprodol immunoassay has cross- reactivity to carisoprodol and meprobamate. Clonazepam (cutoff 20 ng/mL) Not detected Normal [facility] Codeine (cutoff 40 ng/mL) Not detected Normal [facility] Creatinine, Urine 172.1 mg/dL Normal 20.0-400.0 [facility] Diazepam (cutoff 50 ng/mL) Not detected Normal [facility] EER Pain Mgt Drug Panel High Res/EMIT U See Note Normal [facility] Comment on above: Result Comment: Corwin alanis [employer] Enhanced Report using the link below: -Direct access: [email or web address] Performed By: [employer] [address] [place] [id number] Business Banking Manager: Taylor Mccullough MD Ethyl Glucuronide (cutoff 500 ng/mL) Not detected Normal [facility] Fentanyl (cutoff 2 ng/mL) Not detected Normal [facility] Gabapentin (cutoff 100 ng/mL) Not detected Normal [facility] Hydrocodone (cutoff 40 ng/mL) Not detected Normal [facility] Hydromorphone (cutoff 40 ng/mL) Not detected Normal [facility] Lorazepam (cutoff 60 ng/mL) Not detected Normal [facility] Marijuana Metabolite (cutoff 20 ng/mL) Present Normal [facility] MDA (cutoff 200 ng/mL) Not detected Normal [facility] MDEA-[place] (cutoff 200 ng/mL) Not detected Normal [facility] MDMA-Ecstasy (cutoff 200 ng/mL) Not detected Normal [facility] Meperidine metabolite (cutoff 50 ng/mL) Not detected Normal [facility] Methadone Ql (U) Not detected Normal [facility] Methamphetamine (cutoff 400 ng/mL) Not detected Normal [facility] Methylphenidate (cutoff 100 ng/mL) Not detected Normal [facility] Midazolam (cutoff 20 ng/mL) Not detected Normal [facility] Morphine (cutoff 20 ng/mL) Not detected Normal [facility] Naloxone (cutoff 100 ng/mL) Not detected Normal [facility] Norbuprenorphine (cutoff 20 ng/mL) Not detected Normal [facility] Nordiazepam (cutoff 50 ng/mL) Not detected Normal [facility] Norfentanyl (cutoff 2 ng/mL) Not detected Normal [facility] Norhydrocodone (cutoff 100 ng/mL) Not detected Normal [facility] Noroxycodone (cutoff 100 ng/mL) Not detected Normal [facility] Noroxymorphone (cutoff 100 ng/mL) Not detected Normal [facility] Oxazepam (cutoff 50 ng/mL) Not detected Normal [facility] Oxycodone (cutoff 40 ng/mL) Not detected Normal [facility] Oxymorphone (cutoff 40 ng/mL) Not detected Normal [facility] Pain Management Drug Panel See Below Normal [facility] Comment on above: Result Comment: Meth odology: Qualitative Enzyme Immunoassay and Qualitative Liquid Chromatography-Tandem Mass Spectrometry, Quantitative Spectrophotometry The absence of expected drug(s) and/or drug metabolite(s) may indicate non-compliance, inappropriate timing of specimen collection relative to drug administration, poor drug absorption, diluted/adulterated urine, or limitations of testing. The concentration must be greater than or equal to the cutoff to be reported as present. If specific drug concentrations are required, contact the laboratory within two weeks of specimen collection to request quantification by a second analytical technique. Interpretive questions should be directed to the laboratory. Results based on immunoassay detection that do not match clinical expectations should be interpreted with caution. Confirmatory testing by mass spectrometry for immunoassay-based results is available, if ordered within two weeks of specimen collection. Additional charges apply. For medical purposes only; not valid for forensic use. This test was developed and its performance characteristics determined by [employer]. It has not been cleared or approved by the US Food and Drug Administration. This test was performed in a CLIA certified laboratory and is intended for clinical purposes. PCP (cutoff 25 ng/mL) Not detected Normal [facility] Phentermine (cutoff 100 ng/mL) Not detected Normal [facility] Pregabalin (cutoff 100 ng/mL) Not detected Normal [facility] Tapentadol (cutoff 100 ng/mL) Not detected Normal [facility] Mxbtwblcfe-p-Ujkz (cutoff 200 ng/mL) Not detected Normal [facility] Temazepam (cutoff 50 ng/mL) Not detected Normal [facility] Tramadol (cutoff 200 ng/mL) Not detected Normal [facility] Zolpidem (cutoff 20 ng/mL) Not detected Normal [facility] Office Visit (Otolaryngology )on 07-22-2020 Follow-up visit Diagnoses/Problems GERD (gastroesophageal reflux disease) (530.81) (K21.9) Multiple thyroid nodules (241.1) (E04.2) Orders GERD (gastroesophageal reflux disease) Start: Esomeprazole Magnesium 40 MG Oral Capsule Delayed Release (NexIUM); ONE CAPSULE 30 MINUTES BEFORE A MEAL DAILY Rx By: Wilfredo Pascual; Dispense: 30 Days ; #:30 Capsule; Refill: 6;For: GERD (gastroesophageal reflux disease); MARIZA = N; Sent To: [facility]; Last Updated By: WISETIVI; 07/22/2020 4:47:36 PM Multiple thyroid nodules Ultrasound Thyroid; Status:Hold For - Scheduling; Requested for:[id number]; Perform:[facility]; Due:[id number];Ordered; For:Multiple thyroid nodules; Ordered By:Wilfredo Pascual; Radiologist to Determine Optimal Study : Y What are the patient's signs and symptoms? : thyroid nodules Patient Discussion/Summary GERD Thyroid nodules Patient seen in the office today with reflux symptomatology initially started on Nexium with 6 refills. In addition she is going to be ordered a repeat thyroid ultrasound to be completed in December and see me back following to review. Provider Impressions GERD Thyroid nodules Patient seen in the office today with reflux symptomatology initially started on Nexium with 6 refills. In addition she is going to be ordered a repeat thyroid ultrasound to be completed in December and see me back following to review. Chief Complaint THYROID US REVIEW History of Present IllnessPatient returns to the office to review thyroid ultrasound which shows multiple thyroid nodules largest left measuring 1.4 cm in largest right measuring 1.1 cm. Patient also has history of reflux symptomatology and cervical dysphagia. Patient here for further assessment. There have been no significant changes in past medical or past surgical histories except as mentioned. Active Problems Cervical dysphagia (787.29) (R13.19) Multiple thyroid nodules (241.1) (E04.2) Social History Never a smoker Allergies No Known Drug Allergies Recorded By: Rosy Matias; 03/31/2020 1:51:24 PM Physical Exam No acute distress The external ear structures appear normal. The ear canals patent and the tympanic membranes are intact without evidence of air-fluid levels, retraction, or congenital defects. Anterior rhinoscopy notes essentially a midline nasal septum. Examination is noted for normal healthy mucosal membranes without any evidence of lesions, polyps, or exudate. The tongue is normally mobile. There are no lesions on the gingiva, buccal, or oral mucosa. There are no oral cavity masses. The neck is negative for mass lymphadenopathy. The trachea and parotid are clear. The thyroid bed is grossly unremarkable. The salivary gland structures are grossly unremarkable. In order to assess the larynx, flexible laryngoscopy was performed based on the patient's history. Procedure After topical anesthesia, a very complete flexible laryngoscopy was performed. This examination reveals a normal appearance to the laryngeal structures including the true cords, false cords, epiglottis, base of tongue, and piriform sinus, except as noted. Signatures Electronically signed by : Wilfredo Pascual MD; Jul 22 2020 4:49PM EST (Author) Normal [facility] US THYROIDon 07-11-2020 US THYROID Patient Name: RAVEN PINK STUDY: US THYROID; 07/11/2020 11:11 am INDICATION: BILATERAL THYROID NODULES Nontoxic multinodular goiter. COMPARISON: None ACCESSION NUMBER(S): [id number] ORDERING CLINICIAN: WILFREDO PASCUAL TECHNIQUE: Multiple ultrasonographic images of the thyroid gland were obtained. FINDINGS: RIGHT LOBE: The right lobe is heterogeneous measuring 47 x 15 x 15 mm. It contains an indeterminate hypoechoic irregular nodule measuring approximately 10 x 8 x 11 mm. LEFT LOBE: The left lobe is 38 x 12 x 11 mm. It contains a heterogeneous solid nodule measuring 14 x 11 x 10 mm. ISTHMUS: The isthmus is 2 mm. CERVICAL LYMPH NODES: No significant adenopathy. IMPRESSION: Heterogeneous thyroid gland containing indeterminate solid nodules as described. Electronically signed by: OLGA MENDEZ MD Normal [facility] GI COMP PHARYNGEAL SPEECH EV [place] 04-04-2020 GI COMP PHARYNGEAL SPEECH EVAL Patient Name: RAVEN PINK STUDY: GI COMP PHARYNGEAL SPEECH EVAL; 04/04/2020 10:39 am INDICATION: DYSHAGIA. COMPARISON: None. ACCESSION NUMBER(S): [id number] ORDERING CLINICIAN: WILFREDO PASCUAL TECHNIQUE: Radiographic and videographic assistance was provided to the speech pathologist performing modified barium swallow. FINDINGS: Fluoroscopy and cine radiography provided for modified barium swallow performed by speech pathologist. Please refer to their detailed report. FLUOROSCOPY TIME: 1 minutes 20 seconds IMPRESSION: Correlate with detailed report from speech pathologist for dietary recommendations. Electronically signed by: MIGUEL JEFFERY MD [facility] TEAMCENTER CONSULTANT (MBSS)on 04-04-2020 TEAMCENTER CONSULTANT (MBSS) Therapy Diagnosis Assessed Cervical dysphagia (787.29) (R13.19) Plan of Care Therapy warranted: no No further dysphagia tx warranted, pt. could possibly benefit from voice therapy after further ENT assessment Plan of care was developed with input and agreement by the patient. Assessment Pt. presenting with functional oral and pharyngeal phase of the swallow. Minimal esophageal dysfunction present. No laryngeal penetration or aspiration present with any consistency trialed. Diet Recommendations: Liquid consistencies: thin (IDDSI level 0) Solid consistencies: regular (IDDSI Level 7) Feeding strategy recommendations: slow rate , alternate consistencies and add moisture to solids Additional recommendations: ENT Insurance Insurance reviewed Visit number: 1 Subjective Living Environment: home Patient arrival: independent Modified Barium Swallow Study Reason for Referral: Pt. reported sometimes having coughing/choking episodes when eating. She further reported feelings of tightness in her throat and intermittent globus sensation. Referred by: Dr. Pascual Prior level of function: within functional limits PMH: thyroid nodules Baseline observations: Hearing: within functional limits for conversation Vision: within functional limits Cognitive/behavioral: attentive, cooperative and alert Current diet: Liquids: thin (IDDSI level 0) Solids: regular (IDDSI Level 7) Oral assessment: Dentition: natural Oral motor: within functional limits Objective Procedure Positioning: chair Consistencies trialed: thin , regular , soft solid and pureed Oral Phase: within functional limits Pharyngeal phase: within functional limits Delay to valleculae: (with cookie trial ) Residue - Piriform sinus: (trace with solids ) Esophageal Phase: impaired as follows and reduced bolus transit A-P View: impaired as follows and reduced bolus transit Treatment Treatment performed today: yes Pt. was educated on ways to increase esophageal clearance i.e. adding moisture, alternating bites/sips Pt. 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 No further dysphagia tx warranted past initial treatment this date. Education: Provided to: patient Verbal education provided: diet modifications and compensatory swallow strategies Written education provided: diet modifications and compensatory swallow strategies Patient/caregiver verbalized understanding and agreement: yes Total time in clinic is 35 minutes. Signatures Electronically signed by : Angela Shine CCC-TEAMCENTER CONSULTANT; Apr 04 2020 12:14PM EST (Author) Normal [facility] Office Visit (Otolaryngology )on 03-31-2020 Follow-up visit Diagnoses/Problems Multiple thyroid nodules (241.1) (E04.2) Cervical dysphagia (787.29) (R13.19) Orders SocHx: Never a smoker Tobacco Use Screening; Status:Complete; Done: 31Mar2020 Perform:Not Applicable;Ordered; For:SocHx: Never a smoker; Ordered By:Rosy Matias; Patient Discussion/Summary 1. Multiple thyroid nodules most concerning is a 1 cm irregularity categorized as TR4 based on ultrasound characteristics. 2. Cervical dysphagia. At this point, the size of the nodule on the right side warrants careful surveillance and as such I recommend a recheck of the thyroid with an ultrasound in late June early July. If indeed there is significant change that will lead us to consider either fine-needle aspiration or potential surgical resection. Regarding her swallowing issue we will send her for dedicated modified barium swallow which will serve not only as a diagnostic study but also as a therapeutic intervention study done with our colleagues in speech pathology. Detailed discussion with her in this regard with all questions answered accordingly. Provider Impressions 1. Multiple thyroid nodules most concerning is a 1 cm irregularity categorized as TR4 based on ultrasound characteristics. 2. Cervical dysphagia. At this point, the size of the nodule on the right side warrants careful surveillance and as such I recommend a recheck of the thyroid with an ultrasound in late June early July. If indeed there is significant change that will lead us to consider either fine-needle aspiration or potential surgical resection. Regarding her swallowing issue we will send her for dedicated modified barium swallow which will serve not only as a diagnostic study but also as a therapeutic intervention study done with our colleagues in speech pathology. Detailed discussion with her in this regard with all questions answered accordingly. Thank you again for allowing us to participate in the care of this patient. This note was created with voice recognition software and has not been corrected for typographical or grammatical errors. Chief Complaint THYROID NODULES KSENIA PEREZ PA-C History of Present IllnessThe patient is a pleasant 29-year-old female seen today through the kind request of KSENIA PEREZ PA-C for evaluation of her thyroid and swallowing issues. This patient has been noted have some evident dysphagia and as part of the workup underwent a thyroid ultrasound which showed a 1 cm nodule categorized as a TR4 lesion. She has a second 6 mm irregularity characterized as a TR3 irregularity. The patient states she has no family history of thyroid cancer no any history of previous radiation exposure. Regarding her swallowing, she feels the food will occasionally seem to get stuck in the mid to lower portion of the neck into the upper esophagus. No change in voice. All remaining ENT inquiry is otherwise unremarkable. The patient's intake form incorporating patient medical history, social history, family history, and review of systems was reviewed by me today in the office and signed on this date and entered into the EMR system. Social History Never a smoker Allergies No Known Drug Allergies Recorded By: Rosy Matias; 03/31/2020 1:51:24 PM Vitals Vital Signs Recorded: 31Mar2020 01:50PM Height5 ft 2 in Dvfojg470 lb BMI Qvpbzjvmyl74.41 BSA Calculated1.95 Physical Exam General appearance: No acute distress. Normal facies. Symmetric facial movement. No gross lesions of the face are noted. The external ear structures appear normal. The ear canals patent and the tympanic membranes are intact without evidence of air-fluid levels, retraction, or congenital defects. Anterior rhinoscopy notes essentially a midline nasal septum. Examination is noted for normal healthy mucosal membranes without any evidence of lesions, polyps, or exudate. The tongue is normally mobile. There are no lesions on the gingiva, buccal, or oral mucosa. There are no oral cavity masses. The neck is negative for mass lymphadenopathy. The trachea and parotid are clear. The thyroid bed is grossly unremarkable. The salivary gland structures are grossly unremarkable. The laryngeal structures are noted for grossly normal appearance. The true vocal cords, the false focal cords, and the remaining structures including the epiglottis, piriform sinuses, and base of tongue are all grossly normal. There is no evidence of gross mass nodule, polyp, tumor or other defect. Signatures Electronically signed by : Wilfredo Pascual MD; Mar 31 2020 2:54PM EST (Author) Normal [facility] US HEAD NECK SOFT TISSUE THY ROIDon 02-27-2020 RIGHT 1 CM TR 4 NODU LE. LEFT 6 MM TR 3 NODULE. TR1: Benign; no FNA required TR2: Not suspicious; no FNA required TR3: Mildly suspicious; ? 1.5 cm follow up, ? 2.5 cm FNA follow up: 1, 3 and 5 years TR4: Moderately suspicious; ? 1.0 cm follow up, ? 1.5 cm FNA follow up: 1, 2, 3 and 5 years TR5: Highly suspicious; ? 0.5 cm follow up, ? 1.0 cm FNA annual follow up for up to 5 years [facility], [place] EXAMINATION: US HEAD NECK SOFT TISSUE THYROID DATE AND TIME:02/26/2020 9:45 AM CLINICAL HISTORY: Thyromegaly R13.10 Esophageal dysphagia ICD10 COMPARISONS: None TECHNIQUE: Biplanar images were obtained. Please note that description of thyroid nodules in this report is based on the 2017 Thyroid Imaging, Reporting and Data System (TI- RADS) established by the [employer] to help provide guidance regarding management of thyroid nodules based on their appearance. These are offered in an attempt to assist the referring physician in their decision process and help address the current over diagnosis of thyroid cancer. These guidelines are considered recommendations and guidance and do not represent rules or absolute standards of care. In patients with multiple thyroid nodules this report will describe any nodule requiring fine-needle aspiration (FNA), otherwise per ACR recommendations the report will include no more than 4 nodules with the highest ACR TI-RADS score for follow-up. For purposes of MIPS compliance it should be noted that the ACR Thyroid Imaging Reporting and Data System (TI-RADS) does not include a TR 0 category to indicate a normal thyroid gland. Therefore TI-RADS does not apply for assessment of a thyroid gland without nodules. FINDINGS: Right lobe: 4.5 cm. Left lobe: 3.7 cm. Isthmus: 0.3 cm. Overall size: The thyroid gland is normal in size.. Right nodule: Rounded 1 cm nodule in the inferior pole of the right thyroid lobe with ill-defined margins. Composition is relatively hypoechoic with some echogenic punctate areas. Findings consistent with a TR 4 nodule. Left nodule: Left thyroid lobe is relatively heterogeneous with ill-defined 6 mm hyperechoic nodule superiorly. No echogenic foci. Nodule is not wider than tall. Findings consistent with a TR 3 nodule. Slight heterogeneity in the lower pole in the left thyroid lobe without a discrete nodule clearly identified. [employer] [facility] [place], [place], [facility] Incoming Radiant Results From [facility] - 02/27/2020 4:45 PM EST EXAMINATION: US HEAD NECK SOFT TISSUE THYROID DATE AND TIME:02/26/2020 9:45 AM CLINICAL HISTORY: Thyromegaly R13.10 Esophageal dysphagia ICD10 COMPARISONS: None TECHNIQUE: Biplanar images were obtained. Please note that description of thyroid nodules in this report is based on the 2017 Thyroid Imaging, Reporting and Data System (TI- RADS) established by the [employer] to help provide guidance regarding management of thyroid nodules based on their appearance. These are offered in an attempt to assist the referring physician in their decision process and help address the current over diagnosis of thyroid cancer. These guidelines are considered recommendations and guidance and do not represent rules or absolute standards of care. In patients with multiple thyroid nodules this report will describe any nodule requiring fine-needle aspiration (FNA), otherwise per ACR recommendations the report will include no more than 4 nodules with the highest ACR TI-RADS score for follow-up. For purposes of MIPS compliance it should be noted that the ACR Thyroid Imaging Reporting and Data System (TI-RADS) does not include a TR 0 category to indicate a normal thyroid gland. Therefore TI-RADS does not apply for assessment of a thyroid gland without nodules. FINDINGS: Right lobe: 4.5 cm. Left lobe: 3.7 cm. Isthmus: 0.3 cm. Overall size: The thyroid gland is normal in size.. Right nodule: Rounded 1 cm nodule in the inferior pole of the right thyroid lobe with ill-defined margins. Composition is relatively hypoechoic with some echogenic punctate areas. Findings consistent with a TR 4 nodule. Left nodule: Left thyroid lobe is relatively heterogeneous with ill-defined 6 mm hyperechoic nodule superiorly. No echogenic foci. Nodule is not wider than tall. Findings consistent with a TR 3 nodule. Slight heterogeneity in the lower pole in the left thyroid lobe without a discrete nodule clearly identified. IMPRESSION: RIGHT 1 CM TR 4 NODULE. LEFT 6 MM TR 3 NODULE. TR1: Benign; no FNA required TR2: Not suspicious; no FNA required TR3: Mildly suspicious; ? 1.5 cm follow up, ? 2.5 cm FNA follow up: 1, 3 and 5 years TR4: Moderately suspicious; ? 1.0 cm follow up, ? 1.5 cm FNA follow up: 1, 2, 3 and 5 years TR5: Highly suspicious; ? 0.5 cm follow up, ? 1.0 cm FNA annual follow up for up to 5 years [place], [place] US HEAD NECK SOFT TISSUE THY ROIDon 02-26-2020 US HEAD NECK SOFT TISSUE THYROID EXAMINATION: US HEAD NECK SOFT TISSUE THYROID DATE AND TIME:02/26/2020 9:45 AM CLINICAL HISTORY: Thyromegaly R13.10 Esophageal dysphagia ICD10 COMPARISONS: None TECHNIQUE: Biplanar images were obtained. Please note that description of thyroid nodules in this report is based on the 2017 Thyroid Imaging, Reporting and Data System (TI- RADS) established by the [employer] to help provide guidance regarding management of thyroid nodules based on their appearance. These are offered in an attempt to assist the referring physician in their decision process and help address the current over diagnosis of thyroid cancer. These guidelines are considered recommendations and guidance and do not represent rules or absolute standards of care. In patients with multiple thyroid nodules this report will describe any nodule requiring fine-needle aspiration (FNA), otherwise per ACR recommendations the report will include no more than 4 nodules with the highest ACR TI-RADS score for follow-up. For purposes of MIPS compliance it should be noted that the ACR Thyroid Imaging Reporting and Data System (TI-RADS) does not include a TR 0 category to indicate a normal thyroid gland. Therefore TI-RADS does not apply for assessment of a thyroid gland without nodules. FINDINGS: Right lobe: 4.5 cm. Left lobe: 3.7 cm. Isthmus: 0.3 cm. Overall size: The thyroid gland is normal in size.. Right nodule: Rounded 1 cm nodule in the inferior pole of the right thyroid lobe with ill-defined margins. Composition is relatively hypoechoic with some echogenic punctate areas. Findings consistent with a TR 4 nodule. Left nodule: Left thyroid lobe is relatively heterogeneous with ill-defined 6 mm hyperechoic nodule superiorly. No echogenic foci. Nodule is not wider than tall. Findings consistent with a TR 3 nodule. Slight heterogeneity in the lower pole in the left thyroid lobe without a discrete nodule clearly identified. IMPRESSION: RIGHT 1 CM TR 4 NODULE. LEFT 6 MM TR 3 NODULE. TR1: Benign; no FNA required TR2: Not suspicious; no FNA required TR3: Mildly suspicious; ? 1.5 cm follow up, ? 2.5 cm FNA follow up: 1, 3 and 5 years TR4: Moderately suspicious; ? 1.0 cm follow up, ? 1.5 cm FNA follow up: 1, 2, 3 and 5 years TR5: Highly suspicious; ? 0.5 cm follow up, ? 1.0 cm FNA annual follow up for up to 5 years Interpreted by: Kip Naranjo MD Signed by: Kip Naranjo MD 02/27/20 Final result Normal [facility] CBC With Differentialon 03-29 Basophils Auto #/vol (Bld) 0.02 10*3/uL Normal 0.01-0.07 [facility] Comment on above: Performed By: #### T S3 ####[facility] [address] [place] [address] Basophils/100 WBC Auto (Bld) 0.2 % Normal 0.1-1.2 [facility] Comment on above: Performed By: #### T S3 ####[facility] T[address] [place] [address] Eosinophils 0.18 10*3/uL Normal 0.04-0.50 [facility] Comment on above: Performed By: #### T S3 ####[facility] [address]of[address] [place] [address] Eosinophils/100 leukocytes 2.2 % Normal 0.0-8.1 [facility] Comment on above: Performed By: #### T S3 ####[facility] [address] [place] [address] Erythrocyte distribution width Auto Ratio (RBC) 14.6 % Normal 12.0-15.4 [facility] Comment on above: Performed By: #### T S3 ####[facility] [address] [place] [address] Erythrocytes (RBC) 4.02 10*6/uL Normal 3.85-5.10 [facility] Comment on above: Performed By: #### T S3 ####[facility] Tjr[address] [facility] [place] [address] Erythrocytes (RBC) 0.0 /100{WBCs} Normal [facility] Comment on above: Performed By: #### T S3 ####[facility] C[address] [place] [address] Erythrocytes (RBC) 0.00 10*3/uL Normal [facility] Comment on above: Performed By: #### T S3 ####[facility] Rme[address] [facility] [place] [address] Hematocrit (HCT) 35.4 % Low 36.5-46.6 [facility] Comment on above: Performed By: #### T S3 ####[address] [place] [address] Hemoglobin mass conc (Bld) 11.8 g/dL Normal 11.8-15.3 [facility] Comment on above: Performed By: #### T S3 ####[facility] Tub[address] [place] [address] Imm Grans Absolute 0.04 10*3/uL Normal 0.00-0.21 [facility] Comment on above: Performed By: #### T S3 ####[facility] Oxf[address] [place] [address] Immature granulocytes #/vol (Bld) 0.5 % Normal [facility] Comment on above: Performed By: #### T S3 ####[facility] Idi[address] [facility] [place] [address] Lymphocytes 1.79 10*3/uL Normal 0.40-2.84 [facility] Comment on above: Performed By: #### T S3 ####[facility] Sjx[address] [facility] [place] [address] Lymphocytes/100 leukocytes 22.1 % Normal 15.7-50.5 [facility] Comment on above: Performed By: #### T S3 ####[facility] Wpp[address] [place] [address] MCH 29.4 pg Normal 27.5-33.0 [facility] Comment on above: Performed By: #### T S3 ####[facility] Bcv[address] [facility] [place] [address] MCHC mass conc (RBC) 33.3 g/dL Normal 30.1-35.0 [facility] Comment on above: Performed By: #### T S3 ####[facility] Qvk[address] [place] [address] MCV 88.1 fL Normal 85.4-100.0 [facility] Comment on above: Performed By: #### T S3 ####[facility] Bpw[address] [place] [address] Monocytes 0.31 10*3/uL Normal 0.25-0.83 [facility] Comment on above: Performed By: #### T S3 ####[facility] Van[address] [place] [address] Monocytes/100 leukocytes 3.8 % Low 4.8-12.7 [facility] Comment on above: Performed By: #### T S3 ####[facility] Hzb[address] [place] [address] Neutrophils 5.75 10*3/uL Normal 1.95-6.85 [facility] Comment on above: Performed By: #### T S3 ####[facility] Rvp[address] [place] [address] Neutrophils/100 leukocytes 71.2 % Normal 36.8-73.2 [facility] Comment on above: Performed By: #### T S3 ####[facility] Kqa[address] [facility] [place] [address] Platelet mean volume (PMV) 10.7 fL Normal 9.9-12.1 [facility] Comment on above: Performed By: #### T S3 ####[facility] Wuh[address] [facility] [place] [address] Platelets 181 10*3/uL Normal 155-404 [facility] Comment on above: Performed By: #### T S3 ####[facility] Sig[address] [place] [address] RDW SD 47.0 fL Normal 39.3-48.6 [facility] Comment on above: Performed By: #### T S3 ####[address] [place] [address] WBC (Leukocytes) 8.1 10*3/uL Normal 4.4-9.9 [facility] Comment on above: Performed By: #### T S3 ####[address] [address] Type and Screenon 04-25-2017 Antibody Screen Negative Normal [facility] Comment on above: Performed By: #### T S3 ####[address] [address] Group and Rh Positive Normal [facility] Comment on above: Performed By: #### T S3 ####[address] [address] PREG COMPL ECHO W/O DYLAN MARCO ANTONIO VEYon 03-22-2017 PREG COMPL ECHO W/O DYLAN SURVEY DATE OF EXAM: Mar 22 2017 1:57PMCLINICAL HISTORY/ Name: EARLENE PINKKAMALJITUDY:PREG COMPL ECHO W/O DYLAN SURVEY 03/22/2017 1:57 pmINDICATION:Supervision of otherwise normal .COMPARISON:. RING CLINICIAN:TIFFANI KHALILNIQUE:Routine ultrasound of the pelvis was performed. Evaluation of the female pelvis was performed by transabdominal technique. Static images were obtained for remote interpretation.FINDINGS: There is a single live intrauterine gestation in cephalic presentation.BPD 8.4 cm, 34 weeks, 0 daysHC 31.4 cm, 35 weeks, 2 daysAC 32.2 cm, 36 weeks, 1 daysFL 7 cm, 35 weeks, 6 daysEstimated weight is 2,735g +/-399g.This results in a composite gestational age of 35 weeks, 3 days, +/-3 weeks. The estimated date of delivery by ultrasound is 04/23/2017. The patient's LMP was 07/20/2016,therefore by dates the fetus should be 35 weeks 0 days. heart rate measures 153 BPM.A anatomic survey was not performed.The placenta is located anteriorly without evidence of previa.The amniotic fluid volume is within lower normal limits with ROHAN = 9.6 cm.Maternal anatomy: Cervix appears closed with an approximate length of 3.4 cm.CONCLUSION: IMPRESSION:Single live intrauterine gestation corresponding to 35 weeks, 3 days, +/-3 weeks.Estimated weight is 2,735g +/-399g.Cephalic presentation. HR = 153bpm.ROHAN = 9.6cm. Normal [facility] Glucose Fasting Toleranceon 01-28-2017 Glucose Fasting Tolerance 82 mg/dL Normal 70-100 [facility] Comment on above: Result Comment: Non- <1 month 40-80 mg/dL>1 month 70- 100 mg/dL<105 mg/dL Performed By: #### T S3 ####[facility] [address] [place] [address] Glucose Tolerance 3hr Pregna ncyon 01-28-2017 Glucose mass conc 145 mg/dL Normal <190 [facility] Comment on above: Performed By: #### T S3 ####[facility] Ivc[address] [place] [address] Glucose mass conc 132 mg/dL Normal <165 [facility] Comment on above: Performed By: #### T S3 ####[facility] [address] [place] [address] Glucose mass conc 76 mg/dL Normal <145 [facility] Comment on above: Performed By: #### T S3 ####[facility] [address] [place] [address] Glucose, WB POCon 01-28-2017 Glucose mass conc 83 mg/dL Normal 70-100 [facility] Comment on above: Performed By: #### T S3 ####[facility] [address] [place] [address] CBCon 01-22-2017 Erythrocyte distribution width Auto Ratio (RBC) 13.6 % Normal 12.0-15.4 [facility] Comment on above: Performed By: #### 1 [id number] ####[facility] [address] [place] [address] Erythrocytes (RBC) 0.00 10*3/uL Normal [facility] Comment on above: Performed By: #### 1 [id number] ####[address] [address] Erythrocytes (RBC) 3.84 10*6/uL Low 3.85-5.10 [facility] Comment on above: Performed By: #### 1 [id number] ####[address] [address] Erythrocytes (RBC) 0.0 /100{WBCs} Normal [facility] Comment on above: Performed By: #### 1 [id number] ####[address] [address] Hematocrit (HCT) 34.0 % Low 36.5-46.6 [facility] Comment on above: Performed By: #### 1 [id number] ####[address] [address] Hemoglobin mass conc (Bld) 11.4 g/dL Low 11.8-15.3 [facility] Comment on above: Performed By: #### 1 [id number] ####[address] [address] MCH 29.7 pg Normal 27.5-33.0 [facility] Comment on above: Performed By: #### 1 [id number] ####[address] [address] MCHC mass conc (RBC) 33.5 g/dL Normal 30.1-35.0 [facility] Comment on above: Performed By: #### 1 [id number] ####[facility] [address] [place] [address] MCV 88.5 fL Normal 85.4-100.0 [facility] Comment on above: Performed By: #### 1 [id number] ####[facility] [address] [place] [address] Platelet mean volume (PMV) 9.9 fL Normal 9.9-12.1 [facility] Comment on above: Performed By: #### 1 [id number] ####[facility] Xet[address] [place] [address] Platelets 234 10*3/uL Normal 155-404 [facility] Comment on above: Performed By: #### 1 [id number] ####[facility] Ofb[address] [place] [address] RDW SD 43.9 fL Normal 39.3-48.6 [facility] Comment on above: Performed By: #### 1 379590 ####[facility] Gjm[address] [place] [address] WBC (Leukocytes) 9.1 10*3/uL Normal 4.4-9.9 [facility] Comment on above: Performed By: #### 1 477086 ####[facility] Ihj[address] [place] [address] Glucose, 1 H Post 50 Gram (P regnancy Screen)on 01-22-2017 Glucose mass conc 158 mg/dL High 55-140 [facility] Comment on above: Performed By: #### 1 [id number] ####[facility] Hhh[address] [place] [address] PREG COMPL ECHO W/O DYLAN MARCO ANTONIO Josi 12-17-2016 PREG COMPL ECHO W/O DYLAN SURVEY DATE OF EXAM: Dec 17 2016 4:24PMCLINICAL HISTORY/ Name: KESHA PINKUDY:PREG COMPL ECHO W/O DYLAN SURVEY; 12/17/2016 4:24 pmINDICATION:. Repeat anatomy of the spine, kidneys, and umbilical cord.COMPARISON:12/04/19 17ACCESSION NUMBER(S):[id number] RING CLINICIAN:TIFFANI KHALILNIQUE:Multipl e sonographic images of the gravid uterus are performed.FINDINGS:There is a live single intrauterine gestation which is now in breech presentation. By average sonographic measurements the fetus measures 21 weeks 3 days gestational age, +/-2 weeks. By the 1st ultrasound of 12/03/2016 the fetus should measured 21 weeks 3 days gestational age. Cardiac activity is identified with real-time imaging. The heart rate is 143 beats per minute.The spine is now visualized and is unremarkable. Both kidneys and umbilical cord insertion are also visualized.Placenta is anterior in location. There is no retroplacental mass or fluid collection. The placenta does not cover the internal cervical os. The cervix is closed and measures 4.6 cm in length. The amniotic fluid remains subjectively within normal limits. There may be trace fluid in the endocervical canal.CONCLUSION: IMPRESSION:Live single intrauterine gestation measuring 21 weeks 3 days gestational age, +/-2 weeks. The fetus is now in breech presentation. There has been satisfactory interval growth from the previous study. ScratchThe spine, kidneys, and umbilical cord insertion are now visualized.Anterior placenta without evidence of previa. Normal [facility] APPENDIX ECHOon 12-09-2016 APPENDIX ECHO DATE OF EXAM: Dec 09 2016 6:11PMCLINICAL HISTORY/ Name: BUSTER PINK:APPENDIX ECHO; 12/09/2016 6:11 pmINDICATION:Patient is 20 weeks with right lower quadrant pain. Rule out appendicitis.COMPARISON: None. [facility] CLINICIAN:ROBERT HUTTON:Limited ultrasound images of the right lower quadrant were obtained.FINDINGS:The appendix is not visualized no are any other findings to suggest appendicitis. Peristalsing bowel loops are noted in the right lower quadrant.CONCLUSION: IMPRESSION:The appendix is not visualized. Appendicitis can't be excluded. Further evaluation by obtaining an MRI of the abdomen and pelvis WITHOUT CONTRAST is recommended for better characterization if clinically indicated. Normal [facility] Comprehensive Metabolic Pane dale 12-09-2016 Alanine aminotransferase (ALT) 12 U/L Normal 7-45 [facility] Comment on above: Performed By: #### 1 [id number] ####[facility] [address] [place] [address] Albumin 3.5 g/dL Normal 3.4-5.0 [facility] Comment on above: Performed By: #### 1 [id number] ####[facility] [address]ye[address] [place] [address] Albumin/Globulin Ratio 1.1 {ratio} Normal 0.9-2.4 [facility] Comment on above: Performed By: #### 1 [id number] ####[facility] [address] [place] [address] Alkaline phosphatase (ALP) 63 U/L Normal 45-117 [facility] Comment on above: Performed By: #### 1 306137 ####[facility] [address] [place] [address] Anion gap 12 mmol/L Normal 10-20 [facility] Comment on above: Performed By: #### 1 [id number] ####[facility] [address] [facility] [place] [address] Aspartate aminotransferase (AST) 12 U/L Low 13-39 [facility] Comment on above: Performed By: #### 1 [id number] ####[facility] [address]fs[address] [place] [address] Bicarbonate (HCO3) 22 mmol/L Normal 21-32 [facility] Comment on above: Performed By: #### 1 244712 ####[facility] [address] [place] [address] Bilirubin (total) 0.3 mg/dL Normal 0.0-1.2 [facility] Comment on above: Performed By: #### 1 465561 ####[facility] Ivx[address] [place] [address] BUN/Creatinine Ratio 11 mg/mg Normal 5-25 [facility] Comment on above: Performed By: #### 1 244526 ####[facility] [address] [place] [address] Calcium 8.9 mg/dL Normal 8.6-10.3 [facility] Comment on above: Performed By: #### 1 [id number] ####[facility] [address] [place] [address] Chloride 105 mmol/L Normal 98-107 [facility] Comment on above: Performed By: #### 1 318379 ####[facility] [address] [facility] [place] [address] Creatinine 0.55 mg/dL Normal 0.50-1.05 [facility] Comment on above: Performed By: #### 1 [id number] ####[facility] [address] [place] [address] eGFR (MDRD) mL/min/{1.73_m2} Normal [facility] Comment on above: Result Comment: Inte rpretation for Chronic Kidney Disease:Stages 1&2 >60 Healthy or potential kidney damage.Mild decrease of GFR.Stage 3 30-59 Moderate decrease of GFR.Stage 4 15-29 Severe decrease of GFR.Stage 5 <15 Kidney failure or on dialysis. Performed By: #### 1 [id number] ####[facility] [address] [place] [address] Glucose mass conc 87 mg/dL Normal 70-100 [facility] Comment on above: Performed By: #### 1 654145 ####[facility] Nlz[address] [place] [address] Potassium molar conc 3.7 mmol/L Normal 3.5-5.1 [facility] Comment on above: Performed By: #### 1 393928 ####[facility] [address] [place] [address] Protein 6.6 g/dL Normal 6.4-8.2 [facility] Comment on above: Performed By: #### 1 997172 ####[facility] Abs[address] [place] [address] Sodium 135 mmol/L Low 136-145 [facility] Comment on above: Performed By: #### 1 401223 ####[facility] Sgq[address] [place] [address] Urea nitrogen 6 mg/dL Normal 6-23 [facility] Comment on above: Performed By: #### 1 [id number] ####[facility] Ixm[address] [place] [address] Culture Urineon 12-09-2016 Culture Urine STATUS: FINAL REPORT SITE: Same as Source SOURCE: Urine Culture Urine: 1,000-10,000 CFU/ml of Mixed Gram positives, No further work-up. Normal [facility] Comment on above: Performed By: #### 1 [id number] ####[facility] Iyt[address] [place] [address] MRI ABDOMEN W/O CONTRASTon 0 12-09-2016 MRI ABDOMEN W/O CONTRAST DATE OF EXAM: Dec 09 2016 9:39PMCLINICAL HISTORY/ Name: SUSANNAH PINKY:MRI ABDOMEN W/O CONTRAST; 12/09/2016 9:39 pmINDICATION:Abdominal pain.COMPARISON:None.ACC ESSION NUMBER(S):[id number] RING CLINICIAN:HARRY GOMEZ:Limited field of view multiplanar multipulse sequence MRI abdomen without intravenous contrast for evaluation of acute appendicitis in a patient. The patient provided written informed consent, obtain by Dr. Marinelli:The appendix is normal.Other incidentally included maternal structures are normal, many of which are incompletely included in the field of view.This exam was not at all optimized for evaluation of , placental and uterine structures. There was limited visualization of these structures.Gravid uterus contains two foci of high T1 signal intensity, one curvilinear and thin, the other as large as 4.7 cm diameter. While these may represent normal enteric contents in the fetus, the exact location, whether in bowel (which can be normal) or elsewhere (including an acute hemorrhagic process somewhere in the gravid uterus) cannot be said with certainty due to the limited field of view, as this exam was performed to evaluate for acute appendicitis in the mother.CONCLUSION: IMPRESSION:NO ACUTE APPENDICITIS OR ANY OTHER ACUTE PROCESS IN THE INCLUDED MATERNAL STRUCTURES.UNCERTAIN ETIOLOGY AND SIGNIFICANCE OF HIGH T1 SIGNAL INTENSITY WITHIN THE GRAVID UTERUS DESCRIBED ABOVE, POSSIBLY NORMAL ENTERIC CONTENTS VERSUS AN ACUTELY HEMORRHAGIC INTRAUTERINE PROCESS.FOLLOW-UP ULTRASOUND RECOMMENDED IN THE NEAR TERM, ALONG WITH OTHER ROUTINE SCREENING.THIS EXAM WAS BROUGHT TO MY ATTENTION ONLY FIVE DAYS AFTER IT WAS PERFORMED AND THE PRELIMINARY REPORT SUBMITTED. THIS EXAM HAD EXTREMELY LIMITED VISUALIZATION OF THE GRAVID UTERUS.I WAS ABLE TO COMMUNICATE THESE FINDINGS WITH DR. RODRIGUEZ ON 2016 AT 1545 HOURS, SOON I WAS ABLE TO EVALUATE THE CASE Normal [facility] Urinalysison 12-09-2016 Ascorbic Acid Negative Normal Negative [facility] Comment on above: Performed By: #### 1 [id number] ####[facility] [address] [place] [address] Automated Urine Microscopy Performed Normal [facility] Comment on above: Performed By: #### 1 [id number] ####[facility] [address] [place] [address] Bilirubin Ql (U) Negative Normal Negative [facility] Comment on above: Performed By: #### 1 [id number] ####[facility] [address] [place] [address] Blood Negative Normal Negative [facility] Comment on above: Performed By: #### 1 [id number] ####[facility] [address] [place] [address] Erythrocytes (RBC) 2 /[HPF] Normal 0-3 [facility] Comment on above: Performed By: #### 1 [id number] ####[facility] [address] [place] [address] Glucose mass conc Negative Normal Negative [facility] Comment on above: Performed By: #### 1 [id number] ####[facility] [address] [place] [address] Protein Negative Normal Negative [facility] Comment on above: Performed By: #### 1 [id number] ####[facility] [address] [place] [address] Urine, appearance Hazy Normal Clear [facility] Comment on above: Performed By: #### 1 [id number] ####[facility] [address] [place] [address] Urine, bacteria in sediment Few Normal None [facility] Comment on above: Performed By: #### 1 [id number] ####[facility] [address] [place] [address] Urine, color Yellow Normal [facility] Comment on above: Performed By: #### 1 [id number] ####[facility] [address] [place] [address] Urine, ketones presence Negative Normal Negative [facility] Comment on above: Performed By: #### 1 [id number] ####[facility] [address] [place] [address] Urine, nitrite presence Negative Normal Negative [facility] Comment on above: Performed By: #### 1 [id number] ####[facility] [address] [place] [address] Urine, pH 7.0 [pH] Normal 5.0-9.0 [facility] Comment on above: Performed By: #### 1 078936 ####[facility] [address] [place] [address] Urine, specific gravity 1.009 Normal 1.003-1.035 [facility] Comment on above: Performed By: #### 1 [id number] ####[facility] [address] [place] [address] Urine, squamous cells in sediment 5 /[HPF] Normal 0-5 [facility] Comment on above: Performed By: #### 1 [id number] ####[facility] [address] [place] [address] Urine, urobilinogen <2.0 Normal Negative [facility] Comment on above: Performed By: #### 1 [id number] ####[facility] [address] [place] [address] WBC (Leukocytes) 1 /[HPF] Normal 0-5 [facility] Comment on above: Performed By: #### 1 [id number] ####[facility] [address] [place] [address] WBC (Leukocytes) Moderate Abnormal Negative [facility] Comment on above: Performed By: #### 1 [id number] ####[facility] [address] [place] [address] PREG COMPL ECHO W/ANATOMICAL SURon 12-03-2016 PREG COMPL ECHO W/ANATOMICAL MARCO ANTONIO DATE OF EXAM: Dec 03 2016 4:01PMCLINICAL HISTORY/ Name: SUSANNAH PINKY:PREG COMPL ECHO W/ANATOMICAL MARCO ANTONIO 12/03/2016 4:01 pmINDICATION:Supervision of otherwise normal .COMPARISON:1st trimester pelvic ultrasound of 09/02/2016. ANTHONY CLINICIAN:TIFFANI FRAUSTO:Routine ultrasound of the pelvis was performed. Evaluation of the female pelvis was performed by transabdominal technique. Static images were obtained for remote interpretation.FINDINGS: There is a single live intrauterine gestation in cephalic presentation.BPD 4.5 cm, 19 weeks, 5 daysHC 17 cm, 19 weeks, 5 daysAC 15.6 cm, 20 weeks, 6 daysFL 3.1 cm, 19 weeks, 4 daysEstimated weight is 332 g plus or minus 49 g.This results in a composite gestational age of 20 weeks, 0 days, +/- 2 weeks. The estimated date of delivery by ultrasound is 04/22/2017. The patient's LMP was 07/20/2016,therefore by dates the fetus should be 19 weeks 3 days. heart rate measures 150 BPM.On anatomic survey there were several structures which were sub visualized due to positioning. Sub visualized structures included the spinal column, kidneys, and cord insertion.Of the visualized structures, no anomaly was identified including evaluation of: Cerebral ventricles, posterior fossa, bladder, four-chamber heart, diaphragm, stomach, three-vessel cord and extremities.The placenta is placenta is located anteriorly without evidence of previa. The amniotic fluid volume is within normal limits.Maternal anatomy: Cervix appears closed with length of 3.5 cm.CONCLUSION: IMPRESSION:Single live intrauterine gestation corresponding to 20 weeks, 0 days, +/- 2 weeks.On anatomic survey, no discrete anomaly identified although there were several structures which were sub visualized including the spinal column, kidneys and cord insertion. Normal [facility] Glucose Fasting Toleranceon 11-05-2016 Glucose Fasting Tolerance 88 mg/dL Normal 70-100 [facility] Comment on above: Result Comment: Non- <1 month 40-80 mg/dL>1 month 70- 100 mg/dL<105 mg/dL Performed By: #### 1 [id number] ####[facility] [address] [place] [address] Glucose Tolerance 3hr Pregna ncyon 11-05-2016 Glucose mass conc 170 mg/dL Normal <190 [facility] Comment on above: Performed By: #### 1 [id number] ####[facility] [address] [place] [address] Glucose mass conc 46 mg/dL Normal <145 [facility] Comment on above: Performed By: #### 1 [id number] ####[facility] [address] [place] [address] Glucose mass conc 146 mg/dL Normal <165 [facility] Comment on above: Performed By: #### 1 [id number] ####[facility] [address] [place] [address] Glucose, WB POCon 11-05-2016 Glucose mass conc 93 mg/dL Normal 70-100 [facility] Comment on above: Performed By: #### 1 [id number] ####[facility] [address] [place] [address] CBC With Differentialon Basophils Auto #/vol (Bld) 0.02 10*3/uL Normal 0.01-0.07 [facility] Comment on above: Performed By: #### 2 [id number] ####[facility] [address] [place] [address] Basophils/100 WBC Auto (Bld) 0.3 % Normal 0.1-1.2 [facility] Comment on above: Performed By: #### 2 [id number] ####[facility] [address] [place] [address] Eosinophils 0.09 10*3/uL Normal 0.04-0.50 [facility] Comment on above: Performed By: #### 2 [id number] ####[facility] [address] [place] [address] Eosinophils/100 leukocytes 1.2 % Normal 0.0-8.1 [facility] Comment on above: Performed By: #### 2 [id number] ####[facility] [address] [place] [address] Erythrocyte distribution width Auto Ratio (RBC) 12.6 % Normal 12.0-15.4 [facility] Comment on above: Performed By: #### 2 [id number] ####[facility] [address] [place] [address] Erythrocytes (RBC) 0.00 10*3/uL Normal [facility] Comment on above: Performed By: #### 2 [id number] ####[facility] [address] [place] [address] Erythrocytes (RBC) 4.20 10*6/uL Normal 3.85-5.10 [facility] Comment on above: Performed By: #### 2 [id number] ####[facility] [address] [place] [address] Erythrocytes (RBC) 0.0 /100{WBCs} Normal [facility] Comment on above: Performed By: #### 2 [id number] ####[facility] [address] [place] [address] Hematocrit (HCT) 37.6 % Normal 36.5-46.6 [facility] Comment on above: Performed By: #### 2 [id number] ####[facility] [address] [place] [address] Hemoglobin mass conc (Bld) 12.4 g/dL Normal 11.8-15.3 [facility] Comment on above: Performed By: #### 2 [id number] ####[facility] [address] [place] [address] Imm Grans Absolute 0.05 10*3/uL Normal 0.00-0.21 [facility] Comment on above: Performed By: #### 2 [id number] ####[facility] [address] [place] [address] Immature granulocytes #/vol (Bld) 0.7 % Normal [facility] Comment on above: Performed By: #### 2 [id number] ####[facility] [address] [place] [address] Lymphocytes 1.58 10*3/uL Normal 0.40-2.84 [facility] Comment on above: Performed By: #### 2 [id number] ####[facility] [address] [place] [address] Lymphocytes/100 leukocytes 21.5 % Normal 15.7-50.5 [facility] Comment on above: Performed By: #### 2 [id number] ####[facility] [address] [place] [address] MCH 29.5 pg Normal 27.5-33.0 [facility] Comment on above: Performed By: #### 2 [id number] ####[facility] [address] [place] [address] MCHC mass conc (RBC) 33.0 g/dL Normal 30.1-35.0 [facility] Comment on above: Performed By: #### 2 [id number] ####[facility] [address] [place] [address] MCV 89.5 fL Normal 85.4-100.0 [facility] Comment on above: Performed By: #### 2 [id number] ####[facility] [address] [place] [address] Monocytes 0.32 10*3/uL Normal 0.25-0.83 [facility] Comment on above: Performed By: #### 2 [id number] ####[facility] [address] [place] [address] Monocytes/100 leukocytes 4.4 % Low 4.8-12.7 [facility] Comment on above: Performed By: #### 2 [id number] ####[facility] [address] [facility] [place] [address] Neutrophils 5.29 10*3/uL Normal 1.95-6.85 [facility] Comment on above: Performed By: #### 2 [id number] ####[facility] [address] [facility] [place] [address] Neutrophils/100 leukocytes 71.9 % Normal 36.8-73.2 [facility] Comment on above: Performed By: #### 2 [id number] ####[facility] [address] [place] [address] Platelet mean volume (PMV) 9.6 fL Low 9.9-12.1 [facility] Comment on above: Performed By: #### 2 [id number] ####[facility] [address] [place] [address] Platelets 230 10*3/uL Normal 155-404 [facility] Comment on above: Performed By: #### 2 [id number] ####[facility] [address] [place] [address] RDW SD 40.9 fL Normal 39.3-48.6 [facility] Comment on above: Performed By: #### 2 [id number] ####[facility] [address] [facility] [place] [address] WBC (Leukocytes) 7.4 10*3/uL Normal 4.4-9.9 [facility] Comment on above: Performed By: #### 2 [id number] ####[facility] [address] [place] [address] Glucose, 1 H Post 50 Gram (P regnancy Screen)on 11-01-2016 Glucose mass conc 158 mg/dL High 55-140 [facility] Comment on above: Performed By: #### 1 [id number] ####[facility] [address] [place] [address] HIV-1,2 Combo Ag/Ab, W/Rfx t o Confirmon 11-01-2016 HIV 1-2 Combo Ag/Ab NON REACTIVE Normal NONREACTIVE [facility] Comment on above: Result Comment: HIV Ag/Ab screen is performed using the Siemens AdviaPassworksaur HIV Ag/Ab Combo assay which detects the presenceof HIV p24 antigen as well as antibodies to HIV-1(Group M and O) and HIV-2. Hepatitis B Surface Antigeno n 11-01-2016 Hepatitis B Surface Antigen NONREACTIVE Normal NONREACTIVE [facility] Comment on above: Result Comment: Blank ents receiving more than 5 mg/day of biotin may have interfin test results. A sample should be taken no sooner than eightafter previous dose. Contact [phone] for additional infor Rubella Ab, IgGon 11-01-2016 Rubella Ab, IgG 114 IU/ML Normal [facility] Comment on above: Result Comment: REF VALUESNON-IMMUNE: < 5EQUIVOCAL: 5-9IMMUNE: >=10 Syphilis IgG w/Rflx toTiter, TP-PAon 11-01-2016 Syphilis IgG w/Rflx toTiter,TP-PA NON REACTIVE Normal NONREACTIVE [facility] Comment on above: Result Comment: Blank ents receiving more than 5 mg/day of biotin may have interfin test results. A sample should be taken no sooner than eightafter previous dose. Contact [phone] for additional infor Type and Screenon 11-01-2016 Antibody Screen Negative Normal [facility] Comment on above: Performed By: #### T S3 ####[facility] [address] [place] [address] Group and Rh Positive Normal [facility] Comment on above: Performed By: #### T S3 ####[facility] [address] [place] [address] VZV Ab, IgGon 11-01-2016 VZV Ab, IgG Positive Normal NEGATIVE [facility] Comment on above: Result Comment: INTE RPRETATIVE COMMENTNEGATIVE: No IgG antibodies specific to VZV detected.It is likely that the patient has not had aprevious exposure to VZV through infectionor vaccination. Alternatively, the patient may have beenexposed to VZV but a failure to respond may indicateimmunodeficiency.EQUIVOCAL:Equivocal results; obtain additional sample for retesPOSITIVE: IgG antibody to VZV detected. This may indicate thatthe patient was exposed to VZV through infection orvaccination.The interpretation of serological tests should take into accounthe immunological status of the patient. Test results forpatients, including immunocompromised patients, neonates, andpediatric patients, reflect their capacity to respondimmunologically to the virus as well as their exposure to thepathogen. Patients treated with IVIG may demonstrate alteredresults in serological assays. Vital Signs Date Time Vital Sign Value Performing Clinician Facility 10-09-2024 10:57-0400 Body height 157.5 cm Merry Reese APRN-GRAZING EXAMINER Work Phone: [facility] 10-09-2024 10:57-0400 Body mass index (BMI) [Ratio] 37.71 kg/m2 Merry Reese APRN-GRAZING EXAMINER Work Phone: [facility] 10-09-2024 10:57-0400 Body weight 93.53 kg Merry Reese APRN-GRAZING EXAMINER Work Phone: [facility] 10-09-2024 10:57-0400 Diastolic blood pressure 101 mm[Hg] Merry Reese APRN-GRAZING EXAMINER Work Phone: [facility] 10-09-2024 10:57-0400 Heart rate 80 /min Merry Reese APRN-GRAZING EXAMINER Work Phone: [facility] 10-09-2024 10:57-0400 Systolic blood pressure 141 mm[Hg] Merry Reese APRN-GRAZING EXAMINER Work Phone: [facility] 09-05-2024 12:49-0400 Body height 157.5 cm Merry Reese AQUATICS COORDINATOR-GRAZING EXAMINER Work Phone: [facility] 09-05-2024 12:49-0400 Body mass index (BMI) [Ratio] 37.49 kg/m2 Merry Reese AQUATICS COORDINATOR-GRAZING EXAMINER Work Phone: [facility] 09-05-2024 12:49-0400 Body weight 92.99 kg Merry Reese AQUATICS COORDINATOR-GRAZING EXAMINER Work Phone: [facility] 09-05-2024 12:49-0400 Diastolic blood pressure 86 mm[Hg] Merry Reese AQUATICS COORDINATOR-GRAZING EXAMINER Work Phone: [facility] 09-05-2024 12:49-0400 Heart rate 83 /min Merry Reese AQUATICS COORDINATOR-GRAZING EXAMINER Work Phone: [facility] 09-05-2024 12:49-0400 Systolic blood pressure 138 mm[Hg] Merry Reese AQUATICS COORDINATOR-GRAZING EXAMINER Work Phone: [facility] 08-10-2022 13:33-0400 Body height 152.4 cm Tiffani Rodriguez MD Work Phone: [facility] 08-10-2022 13:33-0400 Body weight 99.79 kg Tiffani Rodriguez MD Work Phone: [facility] 08-10-2022 13:33-0400 Diastolic blood pressure 82 mm[Hg] Tiffani Rodriguez MD Work Phone: [facility] 08-10-2022 13:33-0400 Systolic blood pressure 126 mm[Hg] Tiffani Rodriguez MD Work Phone: [facility] 08-03-2021 13:53-0400 Body height 152.4 cm Tiffani Rodriguez MD Work Phone: [facility] 08-03-2021 13:53-0400 Body weight 94.35 kg Tiffani Rodriguez MD Work Phone: [facility] 08-03-2021 13:53-0400 Diastolic blood pressure 86 mm[Hg] Tiffani Rodriguez MD Work Phone: [facility] 08-03-2021 13:53-0400 Systolic blood pressure 136 mm[Hg] Tiffani Rodriguez MD Work Phone: [facility] 03-25-2021 21:45-0500 Diastolic blood pressure 56 mm[Hg] Marcie Lorenaoz [facility] 03-25-2021 21:45-0500 Heart rate 84 /min [facility] 03-25-2021 21:45-0500 Respiratory rate 18 /min [facility] 03-25-2021 21:45-0500 SaO2% (BldA) [Mass fraction] 94 % [facility] 03-25-2021 21:45-0500 Systolic blood pressure 112 mm[Hg] [facility] 03-25-2021 15:58-0500 Body height 157.4 cm [facility] 03-25-2021 15:58-0500 Body temperature 99.5 [degF] [facility] 03-25-2021 15:58-0500 Body weight 92.9 kg [facility] Encounters Encounter Date Encounter Type Care Provider Facility Start: 10-10-2024 ambulatory Merry Reese Facility:[facility] Start: 10-09-2024 End: 10-09-2024 Office outpatient visit 25 minutes Merry Reese AQUATICS COORDINATOR-GRAZING EXAMINER Work Phone: [facility] Comment on above: IFG (impaired fastin g glucose) (Primary Dx); Mixed hyperlipidemia; Primary hypertension; Class 2 severe obesity due to excess calories with serious comorbidity and body mass index (BMI) of 37.0 to 37.9 in adult Start: 10-03-2024 ambulatory Merry Reese Facility:[facility] Start: 10-03-2024 Non-patient / Non-visit Dr. Nic lucio MD -[facility] Start: 10-03-2024 End: 10-03-2024 Patient encounter procedure Merry Reese MANAGER COMMODITIES-C -Pulmonary Services/Neurology Work Phone: Start: 10-03-2024 End: 10-03-2024 ambulatory Merry Reese Facility:[facility] Start: 09-19-2024 End: 09-19-2024 Subsequent hospital visit by physician Daniel X-Ray Fluoro 1 [facility] Comment on above: Numbness and tinglin g Multiple thyroid nod ules Start: 09-19-2024 End: 09-19-2024 ambulatory MERRY Guevara [facility] Start: 09-07-2024 End: 09-07-2024 Subsequent hospital visit by physician Daniel Ultrasound 1 [facility] Comment on above: Multiple thyroid nod ules Start: 09-07-2024 End: 09-07-2024 ambulatory MERRY Guevara [facility] Start: 09-05-2024 End: 09-05-2024 ambulatory [facility] Start: 09-05-2024 End: 09-05-2024 Office outpatient new 45 minutes Merry Reese AQUATICS COORDINATOR-GRAZING EXAMINER Work Phone: [facility] Comment on above: Multiple thyroid nod ules (Primary Dx); Attention deficit disorder (ADD) without hyperactivity; Gastroesophageal reflux disease, unspecified whether esophagitis present; Numbness and tingling; Moderate episode of recurrent major depressive disorder; IFG (impaired fasting glucose); Lipid screening; Establishing care with new doctor, encounter for; Class 2 severe obesity due to excess calories with serious comorbidity and body mass index (BMI) of 37.0 to 37.9 in adult Start: 09-15-2023 End: 09-15-2023 ambulatory TIFFANI RODRIGUEZ MD Facility:[facility] Start: 08-16-2023 End: 08-16-2023 ambulatory TIFFANI RODRIGUEZ MD Facility:[facility] Start: 08-16-2023 End: 08-16-2023 ambulatory TIFFANI RODRIGUEZ MD Facility:[id number] Start: 11-22-2022 MyChart Refill Tiffani Rodriguez MD Work Phone: [facility] Comment on above: Medication Refill Ap proved Start: 08-10-2022 End: 08-10-2022 Manual pelvic examination Tiffani Rodriguez MD Work Phone: [facility] Start: 08-10-2022 End: 08-10-2022 Patient encounter procedure Tiffani Rodriguez MD Work Phone: [facility] Comment on above: Normal pelvic exam ( Primary Dx); Menorrhagia with regular cycle Start: 05-17-2022 Telephone encounter Tiffani mayes MD Work Phone: [facility] Comment on above: Medication Follow-up Start: 04-21-2022 AUDIT Referring Prov ider Unknown FT-Ecolzmgvrdcnqu-Mfmr field Work Phone: Start: 04-20-2022 Chart Update Referring Prov ider Unknown FY-Ylbvklklkkigol-Nuod field Work Phone: Start: 08-03-2021 End: 08-03-2021 Manual pelvic examination Tiffani Rodriguez MD Work Phone: [facility] Start: 08-03-2021 End: 08-03-2021 Patient encounter procedure Tiffani Rodriguez MD Work Phone: [facility] Comment on above: Normal pelvic exam ( Primary Dx) Start: 03-25-2021 AUDIT Referring Prov ider Unknown UZ-Bjqhyzeyssabuc-Zpyt field Work Phone: Start: 03-25-2021 End: 03-25-2021 Emergency department patient visit Marcie Dueñas [facility] Emergency Britton [facility] Start: 02-26-2020 End: 02-29-2020 Patient encounter procedure KSENIA Chirinos [facility] Start: 02-26-2020 End: 02-28-2020 Subsequent hospital visit by physician Laguerre Ultrasound Room [facility] Ultrasound Comment on above: Esophageal dysphagia Start: 04-25-2017 End: 04-26-2017 Evaluation and management of inpatient TIFFANI RODRIGUEZ Facility:[facility] Start: 03-22-2017 Ambulatory TIFFANI BACHUWA Facility:[facility] Start: 03-22-2017 Ambulatory Facility:[id number] Start: 01-28-2017 Ambulatory TIFFANI BACHUWA Facility:[facility] Start: 01-22-2017 Ambulatory TIFFANI BACHUWA Facility:[facility] Start: 12-17-2016 Ambulatory TIFFANI BACHUWA Facility:[facility] Start: 12-17-2016 Ambulatory Facility:[id number] Start: 12-09-2016 End: 12-10-2016 Ambulatory TIFFANI BACHUWA Facility:[facility] Start: 12-09-2016 Ambulatory Facility:[id number] Start: 12-03-2016 Ambulatory TIFFANI BACHUWA Facility:[facility] Start: 12-03-2016 Ambulatory Facility:[id number] Start: 11-05-2016 Ambulatory TIFFANI BACHUWA Facility:[facility] Start: 11-01-2016 Ambulatory TIFFANI BACHUWA Facility:[facility] Procedures Date Procedure Procedure Detail Performing Clinician Start: 09-19-2024 Biopsy thyroid percutaneous core needle Merry Reese APRN-GRAZING EXAMINER Work Phone: Start: 09-19-2024 Lipid 1996 panel - S dionne or Plasma Merry Reese APRN-GRAZING EXAMINER Work Phone: Start: 02-26-2020 soft tissue head & neck real time imge docm Ksenia Kingsley Work Phone: Start: 08-14-2014 Microscopic observat ion [Identifier] in Cervix by Cyto stain Merry Reese APRN-GRAZING EXAMINER Work Phone: Plan of Treatment Date Care Activity Detail Author Start: 2038 Zoster Vaccines (1 of 2) Zoste r Vaccines (1 of 2) [facility] Start: 09-19-2029 Lipid panel Lipid Panel [facility] Start: 09-20-2027 Diabetes mellitus screening Diabetes Screening [facility] Start: 08-11-2027 HPV TESTING [facility] Start: 08-11-2027 PAP TESTING [facility] Start: 08-03-2026 PAP TESTING PAP TESTING [facility] Start: 10-09-2025 End: 04-11-2026 CBC W Auto Differential panel - Blood CBC and Auto Differential Lab Routine IFG (impaired fasting glucose) Expected: 10/09/2025 (Approximate), Expires: 04/11/2026 [facility] Work Phone: Comment on above: Expected: 10/09/2025 (Approximate), Expires: 04/11/2026 Start: 10-09-2025 End: 04-11-2026 Comprehensive metabolic 2000 panel - Serum or Plasma Comprehensive Metabolic Panel Lab Routine IFG (impaired fasting glucose) Expected: 10/09/2025 (Approximate), Expires: 04/11/2026 [facility] Service Area Work Phone: Comment on above: Expected: 10/09/2025 (Approximate), Expires: 04/11/2026 Start: 10-09-2025 End: 04-11-2026 Hemoglobin A1c/Hemoglobin.total in Blood Hemoglobin A1C Lab Routine IFG (impaired fasting glucose) Expected: 10/09/2025 (Approximate), Expires: 04/11/2026 [facility] Work Phone: Comment on above: Expected: 10/09/2025 (Approximate), Expires: 04/11/2026 Start: 10-09-2025 End: 04-11-2026 Lipid 1996 panel - Serum or Plasma Lipid Panel Lab Routine Mixed hyperlipidemia Expected: 10/09/2025 (Approximate), Expires: 04/11/2026 [facility] Work Phone: Comment on above: Expected: 10/09/2025 (Approximate), Expires: 04/11/2026 Start: 10-09-2025 End: 04-11-2026 TSH with reflex to Free T4 if abnormal TSH with reflex to Free T4 if abnormal Lab Routine Mixed hyperlipidemia Expected: 10/09/2025 (Approximate), Expires: 04/11/2026 [facility] Work Phone: Comment on above: Expected: 10/09/2025 (Approximate), Expires: 04/11/2026 Start: 10-09-2025 End: 10-09-2025 Patient encounter procedure 10/09/2025 10:40 AM EDT Office Visit [facility] [address] [place] [phone] Merry Reese, AQUATICS COORDINATOR-GRAZING EXAMINER [address] [place] [address] [facility] Start: 06-30-2025 PAP TESTING [facility] Start: 06-18-2025 DTaP/Tdap/Td Vaccine s (2 - Td or Tdap) DTaP/Tdap/Td Vaccines (2 - Td or Tdap) [facility] Start: 02-19-2025 End: 02-19-2025 Patient encounter procedure 02/19/2025 9:45 AM EST Office Visit [facility] [address] [place] [phone] Edmond Camp MD [address] [place] [id number] [facility] Start: 11-26-2024 Influenza vaccination [facility] Start: 11-07-2024 End: 11-07-2024 Patient encounter procedure 11/07/2024 8:40 AM EDT Office Visit [facility] [address] [place] [phone] Merry Reese, AQUATICS COORDINATOR-GRAZING EXAMINER [address] [place] [address] [facility] Start: 09-07-2024 End: 09-07-2024 Patient encounter procedure 09/07/2024 11:45 AM EDT Appointment [facility] [address] [place] [phone] [facility] Start: 09-05-2024 End: 03-07-2026 CBC W Auto Differential panel - Blood CBC and Auto Differential Lab Routine Multiple thyroid nodules Expected: 09/05/2024 (Approximate), Expires: 03/07/2026 [facility] Work Phone: Comment on above: Expected: 09/05/2024 (Approximate), Expires: 03/07/2026 Start: 09-05-2024 End: 09-05-2025 Comprehensive metabolic 2000 panel - Serum or Plasma Comprehensive Metabolic Panel Lab Routine Multiple thyroid nodules Expected: 09/05/2024 (Approximate), Expires: 09/05/2025 [facility] Work Phone: Comment on above: Expected: 09/05/2024 (Approximate), Expires: 09/05/2025 Start: 09-05-2024 End: 09-05-2025 EMG & nerve conduction EMG & nerve conduction Neurology Routine Numbness and tingling Expected: 09/05/2024 (Approximate), Expires: 09/05/2025 [facility] Service Area Work Phone: Comment on above: Expected: 09/05/2024 (Approximate), Expires: 09/05/2025 Start: 09-05-2024 End: 09-05-2025 Hemoglobin A1c/Hemoglobin.total in Blood Hemoglobin A1C Lab Routine IFG (impaired fasting glucose) Expected: 09/05/2024 (Approximate), Expires: 09/05/2025 [facility] Work Phone: Comment on above: Expected: 09/05/2024 (Approximate), Expires: 09/05/2025 Start: 09-05-2024 End: 09-05-2025 Lipid 1996 panel - Serum or Plasma Lipid Panel Lab Routine Lipid screening Expected: 09/05/2024 (Approximate), Expires: 09/05/2025 [facility] Work Phone: Comment on above: Expected: 09/05/2024 (Approximate), Expires: 09/05/2025 Start: 09-05-2024 End: 09-05-2025 Thyrotropin [Units/volume] in Serum or Plasma Thyroid Stimulating Hormone Lab Routine Multiple thyroid nodules Expected: 09/05/2024 (Approximate), Expires: 09/05/2025 [facility] Work Phone: Comment on above: Expected: 09/05/2024 (Approximate), Expires: 09/05/2025 Start: 09-05-2024 End: 09-05-2025 Thyroxine (T4) free [Mass/volume] in Serum or Plasma Thyroxine, Free Lab Routine Multiple thyroid nodules Expected: 09/05/2024 (Approximate), Expires: 09/05/2025 [facility] Work Phone: Comment on above: Expected: 09/05/2024 (Approximate), Expires: 09/05/2025 Start: 09-05-2024 End: 09-05-2025 Triiodothyronine (T3) Free [Mass/volume] in Serum or Plasma Triiodothyronine, Free Lab Routine Multiple thyroid nodules Expected: 09/05/2024 (Approximate), Expires: 09/05/2025 [facility] Work Phone: Comment on above: Expected: 09/05/2024 (Approximate), Expires: 09/05/2025 Start: 09-05-2024 End: 09-05-2025 US Thyroid gland US thyroid Imaging Routine Multiple thyroid nodules Expected: 09/05/2024, Expires: 09/05/2025 [facility] Work Phone: Comment on above: Expected: 09/05/2024 , Expires: 09/05/2025 Start: 09-05-2024 End: 09-05-2025 XR Cervical spine 2 or 3 Views XR cervical spine 2-3 views Imaging Routine Numbness and tingling Expected: 09/05/2024, Expires: 09/05/2025 [facility] Work Phone: Comment on above: Expected: 09/05/2024 , Expires: 09/05/2025 Start: 09-05-2024 End: 09-05-2025 XR Spine Views XR lumbar spine 6+ views including oblique flexion extension Imaging Routine Numbness and tingling Expected: 09/05/2024, Expires: 09/05/2025 [facility] Work Phone: Comment on above: Expected: 09/05/2024 , Expires: 09/05/2025 Start: 08-16-2024 Yearly Adult Physical Yearly Adult P hysical [facility] Start: 03-25-2024 Diabetes mellitus screening Diabetes Screening [facility] Start: 11-27-2023 COVID-19 Vaccine ( season) COVID-19 Vaccine ( season) [facility] Start: 11-26-2022 Influenza vaccination C [facility] Start: 08-10-2022 End: 10-10-2022 CBC W Auto Differential panel - Blood CBC + DIFF Lab Routine Menorrhagia with regular cycle Expected: 08/10/2022, Expires: 10/10/2022 [facility] Work Phone: Comment on above: Expected: 08/10/2022 , Expires: 10/10/2022 Start: 08-10-2022 End: 10-10-2022 Thyrotropin [Units/volume] in Serum or Plasma TSH BLD Lab Routine Menorrhagia with regular cycle Expected: 08/10/2022, Expires: 10/10/2022 [facility] Work Phone: Comment on above: Expected: 08/10/2022 , Expires: 10/10/2022 Start: 08-10-2022 End: 10-10-2022 Thyroxine (T4) free [Mass/volume] in Serum or Plasma T4 FREE/FREE THYROX Lab Routine Menorrhagia with regular cycle Expected: 08/10/2022, Expires: 10/10/2022 [facility] Work Phone: Comment on above: Expected: 08/10/2022 , Expires: 10/10/2022 Start: 03-28-2022 DEPRESSION ASSESSMENT DEPRESSION ASS ESSMENT [facility] Start: 11-26-2021 Influenza vaccination INFLUENZA (#1) [facility] Start: 03-25-2021 End: 03-28-2021 Iohexol (Omnipaque 350-Radiology Contrast) . ; (OMNIPAQUE)DOSE = 139.35 mL IntraVenous Push OnceCa.5 mL/Kg/DOSE x 92.9 Kg = 139.35 mL/Dose (Daily Total is 139.35 mL) Start: 25-Mar-2021 End: 27-Mar-2021 Ordered: 25-Mar-2021 Marcie Dueñas [facility] Start: 10-20-2020 COVID-19 VACCINE (3 - Booster for Pfizer series) COVID-19 VACCINE (3 - Booster for Pfizer series) [facility] Start: 07-18-2020 COVID-19 VACCINE (3 - Booster for Pfizer series) COVID-19 VACCINE (3 - Booster for Pfizer series) [facility] Start: 07-18-2020 COVID-19 VACCINE (3 - Pfizer series) COVID-19 VACCINE (3 - Pfizer series) [facility] Start: 2018 HPV TESTING HPV TESTING [facility] Start: 08-14-2017 Screening for malign ant neoplasm of cervix [facility] Start: 2009 Screening for malign ant neoplasm of cervix [facility] Start: 06-18-2007 DTaP/Tdap/Td vaccine (1 - Tdap) DTaP/Tdap/Td vaccine (1 - Tdap) [place], [place] Start: 06-18-2007 Hepatitis B Vaccines (1 of 3 - 19+ 3-dose series) Hepatitis B Vaccines (1 of 3 - 19+ 3-dose series) [facility] Start: 06-18-2007 Urine microalbumin profile DTAP,TDAP,TD (1 - Tdap) [facility] Start: 2006 Diabetes mellitus screening Diabetes Screening [facility] Start: 2006 HEPATITIS C SCREENING HEPATITIS C [facility] Start: 2006 Hepatitis C screening Hepatitis C [facility] Start: 2006 HIV SCREENING HIV SCREENING [facility] Start: 06-18-2003 HIV screening HIV screen [place], [place] Start: 2001 Varicella vaccination Varicell a Vaccines (1 of 2 - 13+ 2-dose series) [facility] Start: 2000 Adult depression screening assessment DEPRESSION SCREENING [facility] Start: 1989 MMR Vaccines (1 of 1 - Standard series) MMR Vaccines (1 of 1 - Standard series) [facility] Start: 1989 Varicella vaccine (1 of 2 - 2-dose childhood series) Varicella vaccine (1 of 2 - 2-dose childhood series) [facility] [place] Start: 1988 HEPATITIS B (1 of 3 - 3-dose series) HEPATITIS B (1 of 3 - 3-dose series) [facility] Start: 1988 HIV screening HIV Screening [facility] Start: 1988 Lipid panel Lipid Panel [facility] Start: 1988 Skin Cancer Screening Skin Cancer Sc [facility] Start: 1988 Yearly Adult Physical Yearly Adult P hysical [facility] End: 09-19-2024 Non-gynecological cytology method study [facility] Service Area Work Phone: Comment on above: Once (Lab) for 1 Occ urrences starting 09/19/2024 until 09/19/2024, 1 completed PAP FLUID CERVICAL SCREENING PAP FLUID CERVICAL SCREENING Lab Routine Normal pelvic exam Ordered: 08/03/2021 [facility] Work Phone: Comment on above: Ordered: 08/03/2021 PAP IG, RFX HPV ASCU , 16&18 (PT MUST GO TO [facility] ONLY) PAP IG, RFX HPV ASCU, 16&18 (PT MUST GO TO [facility] ONLY) Lab Routine Normal pelvic exam Ordered: 08/10/2022 [facility] Work Phone: Comment on above: Ordered: 08/10/2022 End: 09-07-2024 US Thyroid gland [facility] Service Area Work Phone: Comment on above: Once for 1 Occurrenc es starting 09/07/2024 until 09/07/2024 End: 09-19-2024 XR Cervical spine 2 or 3 Views [facility] Service Area Work Phone: Comment on above: Once for 1 Occurrenc es starting 09/19/2024 until 09/19/2024 End: 09-19-2024 XR Spine Views [facility] Service Area Work Phone: Comment on above: Once for 1 Occurrenc es starting 09/19/2024 until 09/19/2024 [facility] Immun[facility] Immunization Date Immunization Notes Care Provider Fa cility 02-10-2021 Influenza, injectabl e, Madin Rosmery Canine Kidney, preservative free, quadrivalent Merry Reese AQUATICS COORDINATOR-GRAZING EXAMINER Work Phone: [facility] Work Phone: 02-10-2021 influenza virus vaccine, unspecified formulation Merry Reese AQUATICS COORDINATOR-GRAZING EXAMINER Work Phone: [facility] Work Phone: 02-22-2020 influenza, injectabl e, quadrivalent, preservative free [address] 01-11-2019 influenza, injectabl e, quadrivalent, contains preservative Merry Reese AQUATICS COORDINATOR-GRAZING EXAMINER Work Phone: [facility] Work Phone: 01-10-2018 influenza, injectabl e, quadrivalent, contains preservative Merry Reese AQUATICS COORDINATOR-GRAZING EXAMINER Work Phone: [facility] Work Phone: 01-11-2017 influenza virus vaccine, unspecified formulation Merry Reese AQUATICS COORDINATOR-GRAZING EXAMINER Work Phone: [facility] Work Phone: 06-19-2015 tetanus toxoid, redu sallie diphtheria toxoid, and acellular pertussis vaccine, adsorbed Merry Reese AQUATICS COORDINATOR-GRAZING EXAMINER Work Phone: [facility] Work Phone: Payers Date Payer Category Payer Self-pay 2024 Managed Care (Private) 1.2.8 [id number] 2018 Unknown 2014 Unknown [id number] 1988 Unknown [id number] 2.16.8 [id number] 1988 Unknown [id number] 2.16.8 [id number] 1988 Unknown [id number] 2.16.8 [id number] 1988 Unknown [id number] 2.16.8 [id number] 1988 Unknown [id number] 2.16.8 [id number] 1988 Unknown [id number] 2.16.8 [id number] 1988 Unknown [id number] 2.16.8 [id number] 1988 Unknown [id number] 2.16.8 [id number] 1988 Unknown [id number] 2.16. [id number] Unknown [id number] 2.16.8 [id number] Unknown [id number] 2.16.8 [id number] Unknown [id number] 2.16.8 [id number] Social History Date Type Detail Facility Start: 02-22-2020 End: 09-05-2024 Tobacco smoking status NMIS Never smoker [facility] Start: 02-22-2020 End: 09-05-2024 Tobacco use and exposure Never used [facility] Start: 02-22-2020 Alcohol intake Not Asked [facility] Start: 1990 Sex Assigned At Not on file [facility] Start: 08-26-2024 End: 09-05-2024 Exposure to SARS-CoV-2 (event) Not sure [facility] Tobacco smoking consumption unknown [facility] Start: 08-10-2022 End: 10-09-2024 Never a smoker Never a smoker [facility] Work Phone: Start: 08-03-2021 Alcohol intake Ex-drinker (finding) [facility] Start: 08-10-2022 End: 10-09-2024 Alcohol intake Current drinker of alcohol (finding) [facility] Start: 08-10-2022 Alcohol Comment occasionally [facility] Start: 08-10-2022 End: 10-09-2024 Tobacco use panel [facility] National Score (1-10 0), lower number is lower risk 43 [facility] Start: 09-05-2024 Alcohol Comment SOCIALLY [facility] Work Phone: Start: 1990 Sex assigned at Female [facility] Start: 09-07-2024 Gender identity Identifies as female gender (finding) [facility] Work Phone: Start: 09-07-2024 Sexual orientation Heterosexual (finding) [facility] Work Phone: Functional Status Date Assessment Result Facility 10-09-2024 Patient Health Quest ionnaire 2 item (PHQ-2) [Reported] [facility] Work Phone: 09-05-2024 Patient Health [facility] ionnaire 2 item (PHQ-2) [Reported] [facility] Work Phone: Clinical Notes 08-03-2021 to 10-09-2024 MARCELLA Mora - 10/09/2024 11:00 AM EDTPatient Jerod sEcoto RN - 09/19/2024 10:52 AM EDTBtracy Escoto RN - 09/19/2024 10:52 AM MARCELLA Manzano - 09/05/2024 12:40 PM EDT Note Date & Type Note Facility 10-09-2024 History of Presen t illness Narrative Subjective Patient ID: Raven Pink is a 34 y.o. female who presents for Follow-up (DISCUSS LABS). HPI: Presents today for LABS. XR, AND THYROID US. NO NEW COMPLAINTS. THYROID CA- THYROID US DONE ON 09/07/24 AND BIOPSY ON 09/12/24. APPT 11/06/24 WITH ENDO LIPIDS- DOES HAVE FAMILY H/O LIPID ISSUES. DIET MODIFICATIONS DISCUSSED IFG- A1C 5.6% EMG BLE NEGATIVE. BACK PAIN ON/OFF. BUE EMG SCHEDULE 10/10/24, NECK PAIN REMAINS. SHE WANTS TO WAIT UNTIL AFTER SHE SEES ENDO BEFORE STARTING ANY TREATMENT FOR BACK AND NECK PAIN HTN- START LISINOPRIL 5MG. MONITOR BP AT H0ME. INCREASE TO 10 MG DAILY IN 2 WEEKS IF >140/90. 1 MONTH FU Visit Vitals BP (!) 141/101 Pulse 80 Ht 1.575 m (5' 2) Wt 93.5 kg (206 lb 3.2 oz) BMI 37.71 kg/m OB Status Having periods Smoking Status Never BSA 2.02 m Review of Systems Constitutional: Negative for chills, fatigue, fever and unexpected weight change. HENT: Negative for congestion, ear pain, sore throat and trouble swallowing. Eyes: Negative for photophobia, pain, redness and visual disturbance. Respiratory: Negative for apnea, cough, choking, chest tightness, shortness of breath and wheezing. Cardiovascular: Negative for chest pain, palpitations and leg swelling. Gastrointestinal: Negative for abdominal distention, abdominal pain, blood in stool, constipation, diarrhea, nausea and vomiting. Genitourinary: Negative for difficulty urinating, dysuria, flank pain, frequency, hematuria and urgency. Musculoskeletal: Negative for arthralgias, back pain, gait problem, joint swelling, myalgias and neck pain. Skin: Negative for rash and wound. Neurological: Negative for dizziness, seizures, syncope, facial asymmetry, speech difficulty, weakness, numbness and headaches. Psychiatric/Behavioral: Negative for confusion, sleep disturbance and suicidal ideas. The patient is not nervous/anxious. Objective Component Latest Ref Rng 09/19/2024 WHITE BLOOD CELL COUNT 3.8 - 10.8 Thousand/uL 7.7 RED BLOOD CELL COUNT 3.80 - 5.10 Million/uL 4.39 HEMOGLOBIN 11.7 - 15.5 g/dL 12.8 HEMATOCRIT 35.0 - 45.0 % 41.2 MCV 80.0 - 100.0 fL 93.8 MCH 27.0 - 33.0 pg 29.2 MCHC 32.0 - 36.0 g/dL 31.1 (L) RDW 11.0 - 15.0 % 13.6 PLATELET COUNT 140 - 400 Thousand/uL 358 MPV 7.5 - 12.5 fL 9.0 ABSOLUTE NEUTROPHILS 1,500 - 7,800 cells/uL 4,982 ABSOLUTE LYMPHOCYTES 850 - 3,900 cells/uL 2,064 ABSOLUTE MONOCYTES 200 - 950 cells/uL 454 ABSOLUTE EOSINOPHILS 15 - 500 cells/uL 162 ABSOLUTE BASOPHILS 0 - 200 cells/uL 39 NEUTROPHILS % 64.7 LYMPHOCYTES % 26.8 MONOCYTES % 5.9 EOSINOPHILS % 2.1 BASOPHILS % 0.5 GLUCOSE 65 - 99 mg/dL 85 UREA NITROGEN (BUN) 7 - 25 mg/dL 12 CREATININE 0.50 - 0.97 mg/dL 0.72 EGFR > OR = 60 mL/min/1.73m2 111 SODIUM 135 - 146 mmol/L 139 POTASSIUM 3.5 - 5.3 mmol/L 4.1 CHLORIDE 98 - 110 mmol/L 104 CARBON DIOXIDE 20 - 32 mmol/L 29 ELECTROLYTE BALANCE 7 - 17 mmol/L (calc) 6 (L) CALCIUM 8.6 - 10.2 mg/dL 9.1 PROTEIN, TOTAL 6.1 - 8.1 g/dL 7.0 ALBUMIN 3.6 - 5.1 g/dL 4.5 BILIRUBIN, TOTAL 0.2 - 1.2 mg/dL 0.3 ALKALINE PHOSPHATASE 31 - 125 U/L 60 AST 10 - 30 U/L 12 ALT 6 - 29 U/L 13 CHOLESTEROL, TOTAL <200 mg/dL 212 (H) HDL CHOLESTEROL > OR = 50 mg/dL 50 TRIGLYCERIDES <150 mg/dL 137 LDL-CHOLESTEROL mg/dL (calc) 136 (H) CHOL/HDLC RATIO <5.0 (calc) 4.2 NON HDL CHOLESTEROL <130 mg/dL (calc) 162 (H) HEMOGLOBIN A1c <5.7 % 5.6 eAG (mg/dL) mg/dL 114 eAG (mmol/L) mmol/L 6.3 TSH mIU/L 2.81 T4, FREE 0.8 - 1.8 ng/dL 0.9 T3, FREE 2.3 - 4.2 pg/mL 2.8 Legend: (L) Low (H) High omponent Final Cytological Interpretation A. THYROID FINE NEEDLE ASPIRATION RIGHT MID LOBE Malignant cells derived from papillary thyroid carcinoma medical consultant: Tari Blue M.D. at 1509 EDT Slide(s) initially screened by CLAUDIA Infante at [facility] [id number] [address] [facility] [id number] By the signature on this report, the individual or group listed as making the Final Interpretation/Diagnosis certifies that they have reviewed this case. Resident Review The gross and/or microscopic findings were reviewed in conjunction with pathology resident, Abhishek Arshad MD. Clinical History Right thyroid nodule Specimen Description A. THYROID FINE NEEDLE ASPIRATION RIGHT MID LOBE. Received 8 direct smears (4 air-dried Diff-Quik and 4 spray-fixed) and 30 ml pink clear needle rinse in Cytolyt with particles. SEE SCANNED EMG FROM [facility] Study Result Narrative & Impression Interpreted By: Ismael Piña, STUDY: US GUIDED THYROID BIOPSY; 09/19/2024 11:33 am INDICATION: Signs/Symptoms:nodule. COMPARISON: 09/07/2024 ACCESSION NUMBER(S): [id number] ORDERING CLINICIAN: MERRY REESE FINDINGS: A detailed discussion of the procedure was performed with the patient. Informed consent was obtained by Dr. Piña. The patient was placed in the supine position with the neck in an extended position. Ultrasound of the thyroid was performed and demonstrated a bilobed nodule within the right lobe of the thyroid, corresponding with the 2 nodules described on the prior ultrasound.. The nodule in the right lobe of the thyroid was selected for biopsy. The patient was prepped and draped in normal sterile fashion. 1% lidocaine was utilized for local anesthesia. Subsequently, four passes were made into the right thyroid nodule using 25 gauge spinal needles under direct ultrasound guidance. Images document the tip of the needle within the nodule. Slides were prepared and sent to pathology for evaluation. There were no immediate complications. The procedure was performed by Dr. Piña. The patient was monitored throughout the procedure by the nurse, including blood pressure, heart rate, EKG, and pulse oximetry. IMPRESSION: Successful ultrasound-guided fine-needle aspiration biopsy of the thyroid. Signed by: Ismael Piña 09/19/2024 12:21 PM Dictation workstation: [id number] Physical Exam Constitutional: Appearance: Normal appearance. She is normal weight. HENT: Head: Normocephalic. Eyes: Extraocular Movements: Extraocular movements intact. Conjunctiva/sclera: Conjunctivae normal. Pupils: Pupils are equal, round, and reactive to light. Cardiovascular: Rate and Rhythm: Normal rate and regular rhythm. Pulses: Normal pulses. Heart sounds: Normal heart sounds. Pulmonary: Effort: Pulmonary effort is normal. Breath sounds: Normal breath sounds. Musculoskeletal: General: Normal range of motion. Cervical back: Normal range of motion. Skin: General: Skin is warm and dry. Neurological: General: No focal deficit present. Mental Status: She is alert and oriented to person, place, and time. Psychiatric: Mood and Affect: Mood normal. Behavior: Behavior normal. Thought Content: Thought content normal. Judgment: Judgment normal. Assessment/Plan Problem List Items Addressed This Visit IFG (impaired fasting glucose) - Primary Relevant Orders Comprehensive Metabolic Panel CBC and Auto Differential Hemoglobin A1C Class 2 severe obesity due to excess calories with serious comorbidity and body mass index (BMI) of 37.0 to 37.9 in adult Mixed hyperlipidemia Relevant Orders Lipid Panel TSH with reflex to Free T4 if abnormal Other Visit Diagnoses Primary hypertension Relevant Medications lisinopril 5 mg tablet WE DISCUSSED MOST COMMON SIDE EFFECTS OF PRESCRIBED MEDICATIONS. INDICATIONS, RISK, COMPLICATIONS, AND ALTERNATIVES OF MEDICATION/THERAPEUTICS WERE EXPLAINED AND DISCUSSED. PLEASE MONITOR CLOSELY FOR ANY UNTOWARD SIDE EFFECTS OR COMPLICATIONS OF MEDICATIONS. PATIENT IS STRONGLY ADVISED TO BE COMPLIANT WITH RECOMMENDATIONS. QUESTIONS AND CONCERNS WERE ADDRESSED. INSTRUCTED TO CALL, RETURN SOONER, OR GO TO THE ER, IF SYMPTOMS PERSIST OR WORSEN. THEY VOICED UNDERSTANDING AND DENIES FURTHER QUESTIONS AT THIS TIME. TIME CODE 1. PREPARATION FOR PATIENT'S VISIT (REVIEWING CHART, CURRENT MEDICAL RECORDS, OUTSIDE HEALTH PROVIDER RECORDS, PREVIOUS HISTORY, EXAM, TEST, PROCEDURE, AND MEDICATIONS) 2. FACE TO FACE ENCOUNTER OBTAINING HISTORY FROM THE PATIENT/FAMILY/CAREGIVERS; PERFORMING EVALUATION AND EXAMINATION; ORDERING TESTS OR PROCEDURES; REFERRING AND COMMUNICATING WITH OTHER HEALTHCARE PROVIDERS; COUNSELING AND EDUCATION OF THE PATIENT/FAMILY/CAREGIVERS; INDEPENDENTLY INTERPRETING RESULTS (TESTS, LABS, PROCEDURES, IMAGING) AND COMMUNICATING AND EXPLAINING RESULTS TO THE PATIENT/FAMILY/CAREGIVERS 3. COORDINATION OF CARE; PREPARING AND PRINTING DISCHARGE INSTRUCTIONS AND ANY EDUCATIONAL MATERIAL FOR THE PATIENT/FAMILY/CAREGIVERS. DOCUMENTING CLINICAL INFORMATION IN THE ELECTRONIC MEDICAL RECORD 4. REVIEWING OARRS NEEDED MDM 1) COMPLEXITY: MORE THAN 1 STABLE CHRONIC CONDITION ADDRESSED OR 1 ACUTE ILLNESS ADDRESSED 2)DATA: TESTS INTERPRETED AND OR ORDERED, TOOK INDEPENDENT HISTORY OR RECORDS REVIEWED 3)RISK: MODERATE RISK DUE TO NATURE OF MEDICAL CONDITIONS/COMORBIDITY OR MEDICATIONS ORDERED OR SURGICAL OR PROCEDURE REFERRAL 1 MONTH BP CHECK documented in this encounter [facility] Work Phone: 10-09-2024 Instructions MARCELLA Mora - 10/09/2024 11:00 AM EDT START LISINOPRIL 5MG. MONITOR BP AT H0ME. INCREASE TO 10 MG DAILY IN 2 WEEKS IF >140/90. FU IN 1 MONTH documented in this encounter [facility] Work Phone: 10-03-2024 Procedure note [facility] 09-19-2024 Nurse Note Patient is discharged home with significant other. Dc instructions provided and reviewed without questions. Patient ambulates to lobby with slow and steady gait. [facility] 09-19-2024 Nurse Note Patient is discharged home with significant other. Dc instructions provided and reviewed without questions. Patient ambulates to lobby with slow and steady gait. documented in this encounter [facility] Work Phone: 09-05-2024 History of Present illness Narrative Subjective Patient ID: Raven Pink is a 34 y.o. female who presents for Establish Care (EST CARE, MEDICATION REFILL, TINGLING AND NUMBNESS IN HANDS AND TOES). HPI: Presents today TO ESTABLISH CARE. C/O NUMBNESS AND TINGLING TO BUE AND BLE X 1 YEAR modifying factors consists of NO KNOWN INJURY TO BACK OR NECK. DENIES BACK AND NECK PAIN associated symptoms consist of RUE >LUE. BLE EQUAL. NUMBNESS/TINGLING TO BLE JUST IN TOES. TOES WILL GO NUMB. prior treatment consists of medication NONE THYROID NODULES- SEEN ENT AND THEY DID NOT REALLY DO ANYTHING FOR HER. SHE CONTINUES TO HAVE DIFFICULTY SWALLOWING AND FOOD WILL GET STUCK IN HER THROAT. NO ISSUES DRINKING LIQUIDS. SHE FEELS A CONSTANT PRESSURE AT HER THROAT. BARIUM SWALLOW WAS DONE BY ENT, AND WAS UNREMARKABLE. ADD- STABLE DEPRESSION STABLE Visit Vitals BP 138/86 Pulse 83 Ht 1.575 m (5' 2) Wt 93 kg (205 lb) BMI 37.49 kg/m OB Status Having periods Smoking Status Never BSA 2.02 m Review of Systems Constitutional: Negative for chills, fatigue, fever and unexpected weight change. HENT: Negative for congestion, ear pain, sore throat and trouble swallowing. Eyes: Negative for photophobia, pain, redness and visual disturbance. Respiratory: Negative for apnea, cough, choking, chest tightness, shortness of breath and wheezing. Cardiovascular: Negative for chest pain, palpitations and leg swelling. Gastrointestinal: Negative for abdominal distention, abdominal pain, blood in stool, constipation, diarrhea, nausea and vomiting. Genitourinary: Negative for difficulty urinating, dysuria, flank pain, frequency, hematuria and urgency. Musculoskeletal: Negative for arthralgias, back pain, gait problem, joint swelling, myalgias and neck pain. Skin: Negative for rash and wound. Neurological: Negative for dizziness, seizures, syncope, facial asymmetry, speech difficulty, weakness, numbness and headaches. Psychiatric/Behavioral: Negative for confusion, sleep disturbance and suicidal ideas. The patient is not nervous/anxious. Objective Physical Exam Constitutional: Appearance: Normal appearance. She is normal weight. HENT: Head: Normocephalic. Comments: ENLARGED THYROID Eyes: Extraocular Movements: Extraocular movements intact. Conjunctiva/sclera: Conjunctivae normal. Pupils: Pupils are equal, round, and reactive to light. Cardiovascular: Rate and Rhythm: Normal rate and regular rhythm. Pulses: Normal pulses. Heart sounds: Normal heart sounds. Pulmonary: Effort: Pulmonary effort is normal. Breath sounds: Normal breath sounds. Musculoskeletal: General: Normal range of motion. Cervical back: Normal range of motion. Skin: General: Skin is warm and dry. Neurological: General: No focal deficit present. Mental Status: She is alert and oriented to person, place, and time. Psychiatric: Mood and Affect: Mood normal. Behavior: Behavior normal. Thought Content: Thought content normal. Judgment: Judgment normal. Assessment/Plan Problem List Items Addressed This Visit Attention deficit disorder (ADD) without hyperactivity Relevant Medications atomoxetine (Strattera) 25 mg capsule Multiple thyroid nodules - Primary Relevant Orders US thyroid Referral to Endocrinology CBC and Auto Differential Comprehensive Metabolic Panel Thyroid Stimulating Hormone Thyroxine, Free Triiodothyronine, Free GERD (gastroesophageal reflux disease) Lipid screening Relevant Orders Lipid Panel IFG (impaired fasting glucose) Relevant Orders Hemoglobin A1C Moderate episode of recurrent major depressive disorder Relevant Medications sertraline (Zoloft) 100 mg tablet buPROPion XL (Wellbutrin XL) 300 mg 24 hr tablet Class 2 severe obesity due to excess calories with serious comorbidity and body mass index (BMI) of 37.0 to 37.9 in adult Other Visit Diagnoses Numbness and tingling Relevant Orders EMG & nerve conduction EMG & nerve conduction XR cervical spine 2-3 views XR lumbar spine 6+ views including oblique flexion extension Establishing care with new doctor, encounter for USE CARPAL TUNNEL BRACES AT NIGHT AND PRN. WE DISCUSSED MOST COMMON SIDE EFFECTS OF PRESCRIBED MEDICATIONS. INDICATIONS, RISK, COMPLICATIONS, AND ALTERNATIVES OF MEDICATION/THERAPEUTICS WERE EXPLAINED AND DISCUSSED. PLEASE MONITOR CLOSELY FOR ANY UNTOWARD SIDE EFFECTS OR COMPLICATIONS OF MEDICATIONS. PATIENT IS STRONGLY ADVISED TO BE COMPLIANT WITH RECOMMENDATIONS. QUESTIONS AND CONCERNS WERE ADDRESSED. INSTRUCTED TO CALL, RETURN SOONER, OR GO TO THE ER, IF SYMPTOMS PERSIST OR WORSEN. THEY VOICED UNDERSTANDING AND DENIES FURTHER QUESTIONS AT THIS TIME. TIME CODE 1. PREPARATION FOR PATIENT'S VISIT (REVIEWING CHART, CURRENT MEDICAL RECORDS, OUTSIDE HEALTH PROVIDER RECORDS, PREVIOUS HISTORY, EXAM, TEST, PROCEDURE, AND MEDICATIONS) 2. FACE TO FACE ENCOUNTER OBTAINING HISTORY FROM THE PATIENT/FAMILY/CAREGIVERS; PERFORMING EVALUATION AND EXAMINATION; ORDERING TESTS OR PROCEDURES; REFERRING AND COMMUNICATING WITH OTHER HEALTHCARE PROVIDERS; COUNSELING AND EDUCATION OF THE PATIENT/FAMILY/CAREGIVERS; INDEPENDENTLY INTERPRETING RESULTS (TESTS, LABS, PROCEDURES, IMAGING) AND COMMUNICATING AND EXPLAINING RESULTS TO THE PATIENT/FAMILY/CAREGIVERS 3. COORDINATION OF CARE; PREPARING AND PRINTING DISCHARGE INSTRUCTIONS AND ANY EDUCATIONAL MATERIAL FOR THE PATIENT/FAMILY/CAREGIVERS. DOCUMENTING CLINICAL INFORMATION IN THE ELECTRONIC MEDICAL RECORD 4. REVIEWING OARRS NEEDED MDM 1) COMPLEXITY: MORE THAN 1 STABLE CHRONIC CONDITION ADDRESSED OR 1 ACUTE ILLNESS ADDRESSED 2)DATA: TESTS INTERPRETED AND OR ORDERED, TOOK INDEPENDENT HISTORY OR RECORDS REVIEWED 3)RISK: MODERATE RISK DUE TO NATURE OF MEDICAL CONDITIONS/COMORBIDITY OR MEDICATIONS ORDERED OR SURGICAL OR PROCEDURE REFERRAL AFTER TESTING documented in this encounter [facility] Work Phone: 08-10-2022 Nurse Note Pt in for annual. Pt is having irregular cycles again since her children were born. Pt says this is normal for her. Pt last cycle was 07/25 previous was 42 days prior and last before that was 55 days. Pt is sexually active using withdrawal method. Pt is taking Zoloft, is happy with it and would like a refill. Pt fam Hx breast cancer in both PGM and MGM in their 60s. Pt will speak with provider. documented in this encounter [facility] 08-10-2022 History of Present illness Narrative SUBJECTIVE: Raven Pink is a 30 year old female here today for an annual physical. I reviewed her past medical, surgical, social, and family histories today and updated chart. Allergies, chronic medications, and supplements were also reviewed and her list is now up to date. Concern(s) today include: Yes, thinking about having a baby. menses is regular, once a month. concerned about depression/anxiety and medication in 2020: Doesn't desire future childbearing. doesn't want to get vasectomy and doesn't want her to get TL. Hoping he will change his mind. Doing natural family planning. Increased stress due to covid. Doing well on 100 mg dose of zoloft. 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 2021: Doing well since starting adderall by her pcp. Feels more like herself. Natural family planning. Normal monthly cycles. Declines future childbearing. 2022: does notice PMS emotional sx of irritability/easily angered prior to onset of menses. Period back to 40-50 days apart. Feels they are heavier now. Prefers to not be on an ocp. Declines future childbearing. She is performing self-breast exams? Yes Any concerns about her breasts? No Any family history of breast cancer? No Patient's last menstrual period was 07/07/2021. Are her periods regular? Yes Any concerns about her periods? No Current method of control: None She wants STD testing? No Her medications were reviewed today and her list is now up to date. Social History Tobacco Use Smoking status: Never Smokeless tobacco: Never Vaping Use Vaping Use: Never used Substance Use Topics Alcohol use: Not Currently Drug use: Never REVIEW OF SYSTEMS: Review of Systems Constitutional: Negative for chills, fatigue, fever and unexpected weight change. HENT: Negative for hearing loss, rhinorrhea and sore throat. Eyes: Negative for visual disturbance. Gastrointestinal: Negative for abdominal pain, constipation, diarrhea, nausea and vomiting. Endocrine: Negative for cold intolerance and heat intolerance. Genitourinary: Negative for decreased urine volume, difficulty urinating, dysuria, frequency, hematuria, pelvic pain, urgency, vaginal discharge and vaginal pain. Musculoskeletal: Negative for back pain, gait problem, joint swelling and neck pain. Skin: Negative for rash. Allergic/Immunologic: Negative for immunocompromised state. Neurological: Negative for dizziness, syncope and headaches. Hematological: Negative for adenopathy. Does not bruise/bleed easily. Psychiatric/Behavioral: Negative for agitation, behavioral problems, confusion, self-injury and suicidal ideas. The patient is not nervous/anxious. PHYSICAL EXAMINATION: LMP 07/07/2021 No weight on file for this encounter. Physical Exam Constitutional: Appearance: She is well-developed. Genitourinary: Bladder normal. No lesions in the vagina. No vaginal discharge or tenderness. Right Adnexa: not tender and no mass present. Left Adnexa: not tender and no mass present. No cervical discharge, friability or polyp. Uterus is not enlarged or tender. No urethral prolapse, tenderness or mass present. Bladder is not tender. Pelvic exam was performed with patient in the lithotomy position. Breasts: Right: No mass, nipple discharge, skin change or tenderness. Left: No mass, nipple discharge, skin change or tenderness. HENT: Head: Normocephalic and atraumatic. Eyes: Conjunctiva/sclera: Conjunctivae normal. Pupils: Pupils are equal, round, and reactive to light. Chest: Chest wall: No lacerations, deformity or tenderness. Abdominal: General: There is no distension. Palpations: Abdomen is soft. Tenderness: There is no abdominal tenderness. Musculoskeletal: General: Normal range of motion. Cervical back: Normal range of motion and neck supple. Neurological: Mental Status: She is alert and oriented to person, place, and time. Skin: General: Skin is warm and dry. Findings: No acne, erythema, lesion or rash. Psychiatric: Attention and Perception: Attention and perception normal. Mood and Affect: Mood and affect normal. Speech: Speech normal. Behavior: Behavior normal. Behavior is cooperative. Thought Content: Thought content normal. Cognition and Memory: Cognition normal. Judgment: Judgment normal. Vitals reviewed. Consultation: discussed health maintenance. paps yearly if wnl. self breast exams monthly. taught exam in detail. daily multi-vitamin and Calcium/Vitamin D. Discussed option of Tranexamic acid (1 to 1.5 g orally three to four times daily), which acts within two to three hours of administration. Quoted uptodate. The drug exerts an antifibrinolytic effect by reversibly blocking lysine binding sites on plasminogen, thereby preventing fibrin degradation. Side effects from tranexamic acid include nausea, dizziness, and diarrhea. Tranexamic acid was approved by the [place] Food and Drug Administration in 2008 for treatment of menorrhagia. The risk of thrombotic events with tranexamic acid is controversial. We use tranexamic acid only when other options have been unsuccessful and only in women who are not at a high risk of thrombosis. It therefore has limited use in women with contraindications to hormonal therapy, since these are mainly due to risk of thrombosis. Discussed adding wellbutrin to see if helps irritability symptoms. Can also do Yuri OTC gummy for PMS sx. If no improvement, consider changing zoloft to an SNRI. Will start with 150 mg of well butrin. To call if desires next dose up so can send to pharmacy for a month. If does well, can then send 90 day supply to mail order. Willing to try lysteda as well. Touched on ablation. Will also perform thyroid labs and cbc. ASSESSMENT AND PLAN: 1) See diagnoses and orders for additional plan(s). 2) Medications were reviewed, list was updated, and refills given if needed. 3) Encouraged proper diet and exercise. 4) Age appropriate health preventative measures were discussed. 5) Follow up in 1 year. 6) Tiffani Rodriguez MD MS FACOG documented in this encounter [facility] 05-17-2022 Miscellaneous Notes Fax from [employer] questioning if pt stopped Zoloft. Spoke w/ pt she just refilled RX. documented in this encounter [facility] 08-03-2021 Note HNO ID: [id number] Author: Tiffani Rodriguez MD Service: ? Author Type: Physician Type: Progress Notes Filed: 08/03/2021 2:30 PM Note Text: SUBJECTIVE: Raven Pink is a 30 year old female here today for an annual physical. I reviewed her past medical, surgical, social, and family histories today and updated chart. Allergies, chronic medications, and supplements were also reviewed and her list is now up to date. Concern(s) today include: Yes, thinking about having a baby. menses is regular, once a month. concerned about depression/anxiety and medication in 2020: Doesn't desire future childbearing. doesn't want to get vasectomy and doesn't want her to get TL. Hoping he will change his mind. Doing natural family planning. Increased stress due to covid. Doing well on 100 mg dose of zoloft. 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 2021: Doing well since starting adderall by her pcp. Feels more like herself. Natural family planning. Normal monthly cycles. Declines future childbearing. She is performing self-breast exams? Yes Any concerns about her breasts? No Any family history of breast cancer? No Patient's last menstrual period was 07/07/2021. Are her periods regular? Yes Any concerns about her periods? No Current method of control: None She wants STD testing? No Her medications were reviewed today and her list is now up to date. Social History Tobacco Use - Smoking status: Never Smoker - Smokeless tobacco: Never Used Vaping Use - Vaping Use: Never used Substance Use Topics - Alcohol use: Not Currently - Drug use: Never REVIEW OF SYSTEMS: Review of Systems Constitutional: Negative for chills, fatigue, fever and unexpected weight change. HENT: Negative for hearing loss, rhinorrhea and sore throat. Eyes: Negative for visual disturbance. Gastrointestinal: Negative for abdominal pain, constipation, diarrhea, nausea and vomiting. Endocrine: Negative for cold intolerance and heat intolerance. Genitourinary: Negative for decreased urine volume, difficulty urinating, dysuria, frequency, hematuria, pelvic pain, urgency, vaginal discharge and vaginal pain. Musculoskeletal: Negative for back pain, gait problem, joint swelling and neck pain. Skin: Negative for rash. Allergic/Immunologic: Negative for immunocompromised state. Neurological: Negative for dizziness, syncope and headaches. Hematological: Negative for adenopathy. Does not bruise/bleed easily. Psychiatric/Behavioral: Negative for agitation, behavioral problems, confusion, self-injury and suicidal ideas. The patient is not nervous/anxious. PHYSICAL EXAMINATION: BP 136/86 Ht 5' (1.524 m) Wt 208 lb (94.3 kg) LMP 07/07/2021 BMI 40.62 kg/m? BMI 40.62 kg/(m2) Physical Exam Constitutional: Appearance: She is well-developed. Genitourinary: Bladder normal. No lesions in the vagina. No vaginal discharge or tenderness. Right Adnexa: not tender and no mass present. Left Adnexa: not tender and no mass present. No cervical discharge, friability or polyp. Uterus is not enlarged or tender. No urethral prolapse, tenderness or mass present. Bladder is not tender. Pelvic exam was performed with patient in the lithotomy position. Breasts: Right: No mass, nipple discharge, skin change or tenderness. Left: No mass, nipple discharge, skin change or tenderness. HENT: Head: Normocephalic and atraumatic. Eyes: Conjunctiva/sclera: Conjunctivae normal. Pupils: Pupils are equal, round, and reactive to light. Chest: Chest wall: No lacerations, deformity or tenderness. Abdominal: General: There is no distension. Palpations: Abdomen is soft. Tenderness: There is no abdominal tenderness. Musculoskeletal: General: Normal range of motion. Cervical back: Normal range of motion and neck supple. Neurological: Mental Status: She is alert and oriented to person, place, and time. Skin: General: Skin is warm and dry. Findings: No acne, erythema, lesion or rash. Psychiatric: Attention and Perception: Attention and perception normal. Mood and Affect: Mood and affect normal. Speech: Speech normal. Behavior: Behavior normal. Behavior is cooperative. Thought Content: Thought content normal. Cognition and Memory: Cognition normal. Judgment: Judgment normal. Vitals reviewed. Consultation: discussed health maintenance. paps yearly if wnl. self breast exams monthly. taught exam in detail. daily multi-vitamin and Calcium/Vitamin D. ASSESSMENT AND PLAN: 1) See diagnoses and orders for additional plan(s). 2) Medications were reviewed, list was updated, and refills given if needed. 3) Encouraged proper diet and exercise. 4) Age appropriate health preventative measures were discussed. 5) Follow up in 1 year. 6) Tiffani Rodriguez MD MS FACOG [facility] 08-03-2021 Nurse Note Pt in for annual. Pt says that her cycles are 8 days long, but that is normal for her. Pt has no concerns for today. documented in this encounter [facility] 08-03-2021 History of Present illness Narrative SUBJECTIVE: Raven Pink is a 30 year old female here today for an annual physical. I reviewed her past medical, surgical, social, and family histories today and updated chart. Allergies, chronic medications, and supplements were also reviewed and her list is now up to date. Concern(s) today include: Yes, thinking about having a baby. menses is regular, once a month. concerned about depression/anxiety and medication in 2020: Doesn't desire future childbearing. doesn't want to get vasectomy and doesn't want her to get TL. Hoping he will change his mind. Doing natural family planning. Increased stress due to covid. Doing well on 100 mg dose of zoloft. 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 2021: Doing well since starting adderall by her pcp. Feels more like herself. Natural family planning. Normal monthly cycles. Declines future childbearing. She is performing self-breast exams? Yes Any concerns about her breasts? No Any family history of breast cancer? No Patient's last menstrual period was 07/07/2021. Are her periods regular? Yes Any concerns about her periods? No Current method of control: None She wants STD testing? No Her medications were reviewed today and her list is now up to date. Social History Tobacco Use Smoking status: Never Smoker Smokeless tobacco: Never Used Vaping Use Vaping Use: Never used Substance Use Topics Alcohol use: Not Currently Drug use: Never REVIEW OF SYSTEMS: Review of Systems Constitutional: Negative for chills, fatigue, fever and unexpected weight change. HENT: Negative for hearing loss, rhinorrhea and sore throat. Eyes: Negative for visual disturbance. Gastrointestinal: Negative for abdominal pain, constipation, diarrhea, nausea and vomiting. Endocrine: Negative for cold intolerance and heat intolerance. Genitourinary: Negative for decreased urine volume, difficulty urinating, dysuria, frequency, hematuria, pelvic pain, urgency, vaginal discharge and vaginal pain. Musculoskeletal: Negative for back pain, gait problem, joint swelling and neck pain. Skin: Negative for rash. Allergic/Immunologic: Negative for immunocompromised state. Neurological: Negative for dizziness, syncope and headaches. Hematological: Negative for adenopathy. Does not bruise/bleed easily. Psychiatric/Behavioral: Negative for agitation, behavioral problems, confusion, self-injury and suicidal ideas. The patient is not nervous/anxious. PHYSICAL EXAMINATION: BP 136/86 Ht 5' (1.524 m) Wt 208 lb (94.3 kg) LMP 07/07/2021 BMI 40.62 kg/m BMI 40.62 kg/(m^2) Physical Exam Constitutional: Appearance: She is well-developed. Genitourinary: Bladder normal. No lesions in the vagina. No vaginal discharge or tenderness. Right Adnexa: not tender and no mass present. Left Adnexa: not tender and no mass present. No cervical discharge, friability or polyp. Uterus is not enlarged or tender. No urethral prolapse, tenderness or mass present. Bladder is not tender. Pelvic exam was performed with patient in the lithotomy position. Breasts: Right: No mass, nipple discharge, skin change or tenderness. Left: No mass, nipple discharge, skin change or tenderness. HENT: Head: Normocephalic and atraumatic. Eyes: Conjunctiva/sclera: Conjunctivae normal. Pupils: Pupils are equal, round, and reactive to light. Chest: Chest wall: No lacerations, deformity or tenderness. Abdominal: General: There is no distension. Palpations: Abdomen is soft. Tenderness: There is no abdominal tenderness. Musculoskeletal: General: Normal range of motion. Cervical back: Normal range of motion and neck supple. Neurological: Mental Status: She is alert and oriented to person, place, and time. Skin: General: Skin is warm and dry. Findings: No acne, erythema, lesion or rash. Psychiatric: Attention and Perception: Attention and perception normal. Mood and Affect: Mood and affect normal. Speech: Speech normal. Behavior: Behavior normal. Behavior is cooperative. Thought Content: Thought content normal. Cognition and Memory: Cognition normal. Judgment: Judgment normal. Vitals reviewed. Consultation: discussed health maintenance. paps yearly if wnl. self breast exams monthly. taught exam in detail. daily multi-vitamin and Calcium/Vitamin D. ASSESSMENT AND PLAN: 1) See diagnoses and orders for additional plan(s). 2) Medications were reviewed, list was updated, and refills given if needed. 3) Encouraged proper diet and exercise. 4) Age appropriate health preventative measures were discussed. 5) Follow up in 1 year. 6) Tiffani Rodriguez MD MS FACOG documented [facility] Evaluation note Diagnosis Normal pelvic exam- Primary [facility] Diagnosis Normal pelvic exam- Primary Menorrhagia with regular cycle Excessive or frequent menstruation [facility] Diagnosis Multiple thyroid nodules- Primary Nontoxic multinodular goiter Attention deficit disorder (ADD) without hyperactivity Gastroesophageal reflux disease, unspecified whether esophagitis present Numbness and tingling Disturbance of skin sensation Moderate episode of recurrent major depressive disorder IFG (impaired fasting glucose) Lipid screening Screening for lipoid disorders Establishing care with new doctor, encounter for Class 2 severe obesity due to excess calories with serious comorbidity and body mass index (BMI) of 37.0 to 37.9 in adult documented in this encounter [facility] Work Phone: Evaluation note* Diagnosis Multiple thyroid nodules Nontoxic multinodular goiter documented in this encounter [facility] Work Phone: Evaluation note* Diagnosis Numbness and tingling Disturbance of skin sensation documented in this encounter [facility] Work Phone: Evaluation note* Diagnosis Multiple thyroid nodules Nontoxic multinodular goiter documented in this encounter [facility] Work Phone: Evaluation noteNo assessment information available [facility] Work Phone: Evaluation note* Diagnosis IFG (impaired fasting glucose)- Primary Mixed hyperlipidemia Primary hypertension Unspecified essential hypertension Class 2 severe obesity due to excess calories with serious comorbidity and body mass index (BMI) of 37.0 to 37.9 in adult documented in this encounter [facility] Work Phone: Refdlr for referral (narrative)No reason for referral information availableWSheltering [facility] Work Phone: Reason for visit Narrative* Imaging (Routine) - Authorized Specialty Diagnoses / Procedures Referred By Contac t Referred To Contact Radiology Diagnoses Multiple thyroid nodules Procedures US thyroid Merry Reese, AQUATICS COORDINATOR-GRAZING EXAMINER [address] [place] [address] Phone: tel: fax: Referral ID Status Reason Start Date Expiration Date Visits Requested Visits Authorized [id number] Authorized Perform Procedure 09/05/2024 09/05/2025 1 1 [facility] Work Phone: Reason for visit Narrative* Imaging (Routine) - Authorized Specialty Diagnoses / Procedures Referred By Contac t Referred To Contact Radiology Diagnoses Numbness and tingling Procedures XR cervical spine 2-3 views Merry Reese, AQUATICS COORDINATOR-GRAZING EXAMINER [address] [place] [address] Phone: tel: fax: Referral ID Status Reason Start Date Expiration Date Visits Requested Visits Authorized [id number] Authorized Perform Procedure 09/05/2024 09/05/2025 1 1 [facility] Work Phone: Revzsp for visit Narrative* Imaging (Routine) - Authorized Specialty Diagnoses / Procedures Referred By Contac t Referred To Contact Radiology Diagnoses Numbness and tingling Procedures XR lumbar spine 6+ views including oblique flexion extension Merry Reese, AQUATICS COORDINATOR-GRAZING EXAMINER [address] [place] [address] Phone: tel: fax: Referral ID Status Reason Start Date Expiration Date Visits Requested Visits Authorized [id number] Authorized Perform Procedure 09/05/2024 09/05/2025 1 1 [facility] Work Phone: Reason for visit Narrative* Imaging (Routine) - Authorized Specialty Diagnoses / Procedures Referred By Sheri kaur Referred To Contact Radiology Diagnoses Multiple thyroid nodules Procedures US guided thyroid biopsy Merry Reese, AQUATICS COORDINATOR-GRAZING EXAMINER [address] [place] [address] Phone: tel: fax: Referral ID Status Reason Start Date Expiration Date Visits Requested Visits Authorized [id number] Authorized Perform Procedure 09/12/2024 09/12/2025 1 1 [facility] Work Phone: Summary Purpose Family History No Family History Records FoundNo Family History Records FoundNo Family History Records FoundNo Family History Records FoundNo Family History Records FoundNo Family History Records FoundNo Family History Records FoundNo Family History Records FoundNo Family History Records FoundNo Family History Records FoundNo Family History Records FoundNo Family History Records FoundNo Family History Records Found Advance Directives Documents on File Type Date Recorded 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 ACP-Advance Directive ACP-Power of Career Coordinator Reason for Referral Status Reason Specialty Diagnoses / Procedures Referre d By Contact Referred To Contact Closed Radiology Diagnoses Esophageal dysphagia Procedures US HEAD NECK SOFT TISSUE THYROID Ksenia Kingsley PA [address] [place] [address] Assessments Diagnosis Esophageal dysphagia Dysphagia, pharyngoesophageal phase Chief Complaint and Reason for Visit Chief Complaint Admit Date NUMBNESS AND TINGLING TO BLE October 03 7:09am NUMBNESS AND TINGLING TO BLE October 03 3:28pm Additional Source Comments INFORMATION SOURCE (unrecogn ized section and content) DATE CREATED AUTHOR 09/19/2017 [facility] DATE CREATED AUTHOR AUTHOR'S ORGANIZ ATION 09/20/2017 [facility] DATE CREATED AUTHOR AUTHOR'S ORGANIZ ATION 02/29/2020 [facility] DATE CREATED AUTHOR AUTHOR'S ORGANIZ ATION 07/24/2020 [employer] DATE CREATED AUTHOR AUTHOR'S ORGANIZ ATION 03/26/2021 [facility] DATE CREATED AUTHOR AUTHOR'S ORGANIZ ATION 03/30/2021 [facility] DATE CREATED AUTHOR AUTHOR'S ORGANIZ ATION 08/04/2021 [facility] DATE CREATED AUTHOR AUTHOR'S ORGANIZ ATION 09/19/2021 [facility] DATE CREATED AUTHOR AUTHOR'S ORGANIZ ATION 09/17/2023 [facility] DATE CREATED AUTHOR AUTHOR'S ORGANIZ ATION 09/21/2024 [facility] DATE CREATED AUTHOR AUTHOR'S ORGANIZ ATION 09/21/2024 [facility] DATE CREATED AUTHOR AUTHOR'S ORGANIZ ATION 09/22/2024 [facility] DATE CREATED AUTHOR AUTHOR'S ORGANIZ ATION 10/07/2024 [facility] Reason for Visit (unrecogniz ed section and content) Status Reason Specialty Diagnoses / Procedures Referre d By Contact Referred To Contact Closed Radiology Diagnoses Esophageal dysphagia Procedures US HEAD NECK SOFT TISSUE THYROID Ksenia Kingsley, DARRYL [address] [place] [address] Reason Comments Well Woman Reason Comments Medication Follow-up Reason Onset Date Comments Refill Request 11/22/2022 Reason Comments Establish Care EST CARE, MEDICATION REFILL, TINGLING AND NUMBNESS IN HANDS AND TOES Reason Comments Follow-up DISCUSS LABS <item> Privacy Markings (unrecogniz ed section and content) Section Author: Tyra Valdez PROHIBITION ON REDISCLOSURE OF CONFIDENTIAL INFORMATION This notice accompanies a disclosure of information concerning a client made to you with the consent of such client. Source Comments (unrecognize d section and content) In the event this informatio n is protected by the Federal Confidentiality of Alcohol and Drug Abuse Patient Records regulations: The Federal rules restrict any use of the information to criminally investigate or prosecute any alcohol or drug abuse patient.[facility] Hospital[facility] the event this information is protected by the Federal Confidentiality of Alcohol and Drug Abuse Patient Records regulations: The Federal rules restrict any use of the information to criminally investigate or prosecute any alcohol or drug abuse patient.[facility] Hospital[facility] the event this information is protected by the Federal Confidentiality of Alcohol and Drug Abuse Patient Records regulations: The Federal rules restrict any use of the information to criminally investigate or prosecute any alcohol or drug abuse patient.[facility] Hospital[facility] the event this information is protected by the Federal Confidentiality of Alcohol and Drug Abuse Patient Records regulations: The Federal rules restrict any use of the information to criminally investigate or prosecute any alcohol or drug abuse patient.[facility] Care Teams (unrecognized sec tion and content) Director Of Online Merchandising Relationship Specialty Start Date End Date Merry Reese, AQUATICS COORDINATOR-GRAZING EXAMINER [address] [place] [address] PCP - General Family Medicine 09/05/24 Director Of Online Merchandising Relationship Specialty Start Date End Date Merry Reese, AQUATICS COORDINATOR-GRAZING EXAMINER [address] [place] [address] PCP - General [facility] Medicine 09/05/24 Director Of Online Merchandising Relationship Specialty Start Date End Date Merry Reese, AQUATICS COORDINATOR-GRAZING EXAMINER [address] [facility] [place] [address] PCP - [facility] Medicine 09/05/24 Director Of Online Merchandising Relationship Specialty Start Date End Date ReeseMerry whittaker, AQUATICS COORDINATOR-GRAZING EXAMINER [address] [place] [id number] PCP - General [facility] Medicine 09/05/24 Team Status: Active Member Role/Relationship Status Dates Merry Reese MANAGER COMMODITIES-C Primary Care Provider Active Team Status: Inactive Member Role/Relationship Status Dates Merry Reese MANAGER COMMODITIES-C Primary Care Provider Active Start: October 03, 2024 End: October 03, 2024 Merry Reese NP-C Attending Provider Active St art: October 03, 2024 End: October 03, 2024 Merry Reese NP-[place] Referring Provider Active St art: October 03, 2024 End: October 03, 2024 Team Status: Active Member Role/Relationship Status Dates Merry Reese MANAGER COMMODITIES-C Primary Care Provider Active Start: October 03, 2024 Merry Reese MANAGER COMMODITIES-C Referring Provider Active St art: October 03, 2024 Merry Reese NP-C Other Provider Active Start: October 03, 2024 Dr. Nic Esteban MD Attending Provider Active S tart: October 03, 2024 Director Of Online Merchandising Relationship Specialty Start Date End Date ReeseMerry whittaker, AQUATICS COORDINATOR-GRAZING EXAMINER [address] [facility] [place] [address] PCP - General Family Medicine 09/05/24 Goals (unrecognized section and content) Goals may be documented in a n alternate section FOR RECORDS PERTAINING TO PATIENTS WHO ARE OR HAVE BEEN ENROLLED IN A CHEMICAL DEPENDENCY/SUBSTANCEABUSE PROGRAM, SOME INFORMATION MAY BE OMITTED. This clinical summary was aggregated from multiple sources. Caution should be exercised in using it in the provision of clinical care. This summary normalizes information from multiple sources, and as a consequence, information in this document may materially change the coding, format and clinical context of patient data. In addition, data may be omitted in some cases. CLINICAL DECISIONS SHOULD BE BASED ON THE PRIMARY CLINICAL RECORDS. [employer] [facility]. provides no warranty or guarantee of the accuracy or completeness of information in this document.
--- OUTSIDE RECORDS SUMMARY | 2024-10-10 22:37 | XMS RPT_ITS | CCD ---
Author Organization [facility] Care Team Providers Care Supervisor Long Goods Name Role Phone BACHUWA, TIFFANI Unavailable Unavailable [...] Unavailable Unavailable Ksenia Kingsley Primary Care Provider [phone] KSENIA KINGSLEY Referring Unavailable KSENIA KINGSLEY Primary Care Unavailable Manocchio, Marcie Unavailable Unavailable Unknown, Referring Provider Unavailable Unav ailable Unavailable Unavailable Unavailable Primary Care Provider Unavailabl e Unavailable Primary Care Provider Unavailabl e TIFFANI RODRIGUEZ MD Attending Unavailable TIFFANI RODRIGUEZ MD Attending Unavailable TIFFANI RODRIGUEZ MD Attending Unavailable Merry Littlejohn Primary Care Provider MERRY REESE Referring Unavailable MERRY REESE Primary [...] Unavailable Reese, Merry D Referring Unavailable Skyler PULVERIZER-C, Merry D Primary Care Provider [phone] Skyler PULVERIZER-CMerry Attending Provider Skyler PULVERIZER-CMerry Referring Provider Skyler MYLES-Merry Canales Other Provider [phone] Carlito SUAREZ, Dr. Lucero Attending Provider Medications Current Medications Medication Drug Class(es) Dates [...] 0 07/16/2021 Active take 1 capsule by [facility] once daily in the morning dextroamphetamine-amphetamine 20 [...] and/or EMG Patienton NCS and/or EMG Patient [facility]/Neurology [address] [place] [address] MR#: [id number] Acct: [id number] Name: RAVEN PINK Rep #: [id number] : 1990 34 From: Nic Esteban MD Referring Dr: Merry ReeseC Status: REG CLI Location: [facility] Date: 10/03/24 Sex: F C NCS and/or [...] Multi Select Codes Neurology Neurology Interp Codes: 99190-92 Musc test done w/n test comp (interp) (2) and 50388-55 Nrv cndj test 9-10 studies (interp) 10/03/24 1530 Date Nic Esteban MD CC: PULVERIZER-C Merry Reese; Dr. Nic Esteban MD Date Dictated: 10/03/241527 Date Transcribed: 10/03/241527 Finance Business Manager: MARTI Signed Normal [facility] CBC (INCLUDES DIFF/PLT)on Basophils (Bld) [#/Vol] 0.039 10*3/uL Normal 0-200 [facility] Comment on above: Performed By: #### 7 600, 75686, 899, 70777, 6399, 866, 53907 #### [facility] of [place] [address] [employer]: Porfirio Samano MD Basophils/100 WBC (Bld) 0.5 % Normal [facility] Comment on above: Performed By: #### 7 600, 47001, 899, 66086, 6399, 866, 22078 #### [facility] [place] [address] [employer] First: Porfirio Samano MD Eosinophils (Bld) [#/Vol] 0.162 10*3/uL Normal 15-500 [facility] Comment on above: Performed By: #### 7 600, 44596, 899, 10770, 6399, 866, 67015 #### [facility] [place] [address] [employer]: Porfirio Samano MD Eosinophils/100 WBC (Bld) 2.1 % Normal [facility] Comment on above: Performed By: #### 7 600, 58423, 899, 67083, 6399, 866, 34412 #### [facility] [place] [address] [employer]: Porfirio Samano MD Erythrocyte distribution width (RBC) [Ratio] 13.6 % Normal 11.0-15.0 [facility] Comment on above: Performed By: #### 7 600, 37800, 899, 05636, 6399, 866, 02025 #### [facility] [place] [address] [employer]: Porfirio Samano MD Hematocrit (Bld) [Volume fraction] 41.2 % Normal 35.0-45.0 [facility] Comment on above: Performed By: #### 7 600, 29196, 899, 30497, 6399, 866, 04162 #### [facility] of [address], [address] [place] [address] [employer]: Porfirio Samaon MD Hemoglobin (Bld) [Mass/Vol] 12.8 g/dL Normal 11.7-15.5 [facility] Comment on above: Performed By: #### 7 600, 71360, 899, 93151, 6399, 866, 55074 #### [facility] [place] [address] [employer]: Porfirio Samano MD Lymphocytes (Bld) [#/Vol] 2.064 10*3/uL Normal 850-3900 [facility] Comment on above: Performed By: #### 7 600, 79545, 899, 93478, 6399, 866, 84079 #### [facility] [place] [address] [employer] First: Porfirio Samano MD Lymphocytes/100 WBC (Bld) 26.8 % Normal [facility] Comment on above: Performed By: #### 7 600, 92832, 899, 83106, 6399, 866, 30057 #### [facility] [place] [address] [employer]: Porfirio Samano MD MCH (RBC) [Entitic mass] 29.2 pg Normal 27.0-33.0 [facility] Comment on above: Performed By: #### 7 600, 16274, 899, 19342, 6399, 866, 61449 #### [facility] [place] [address] [employer]: Porfirio Samano MD MCHC (RBC) [Mass/Vol] 31.1 [...] clinical condition. Performed By: #### 7 600, 80507, 899, 54332, 6399, 866, 28478 #### [facility] [place] [address] [employer]: Porfirio Samano MD MCV (RBC) [Entitic vol] 93.8 fL Normal 80.0-100.0 [facility] Comment on above: Performed By: #### 7 600, 72203, 899, 33154, 6399, 866, 46966 #### [facility] [place] [address] [employer]: Porfirio Samano MD Monocytes (Bld) [#/Vol] 0.454 10*3/uL Normal 200-950 [facility] Comment on above: Performed By: #### 7 600, 15689, 899, 65545, 6399, 866, 30878 #### [facility] [place] [address] [employer] First: Porfirio Samano MD Monocytes/100 WBC (Bld) 5.9 % Normal [facility] Comment on above: Performed By: #### 7 600, 87200, 899, 88381, 6399, 866, 28751 #### [facility] [place] [address] [employer]: Porfirio Samano MD Neutrophils (Bld) [#/Vol] 4.982 10*3/uL Normal 7787-5441 [facility] Comment on above: Performed By: #### 7 600, 49327, 899, 82552, 6399, 866, 65127 #### [facility] of [address], [address] [place] [address] Cutter First: Porfirio Samano MD Neutrophils/100 WBC (Bld) 64.7 % Normal [facility] Comment on above: Performed By: #### 7 600, 07134, 899, 84745, 6399, 866, 14915 #### [facility] [place] [address] [employer] First: Porfirio Samano MD Platelet mean volume (Bld) [Entitic vol] 9.0 fL Normal 7.5-12.5 [facility] Comment on above: Performed By: #### 7 600, 01641, 899, 46465, 6399, 866, 30281 #### [facility] [place] [address] [employer] First: Porfirio Samano MD Platelets (Bld) [#/Vol] 358 10*3/uL Normal 140-400 [facility] Comment on above: Performed By: #### 7 600, 90901, 899, 23598, 6399, 866, 65412 #### [facility] [place] [address] [employer] First: Porfirio Samano MD RBC (Bld) [#/Vol] 4.39 10*6/uL Normal 3.80-5.10 [facility] Comment on above: Performed By: #### 7 600, 41066, 899, 58351, 6399, 866, 02607 #### [facility] [place] [address] [employer]: Porfirio Samano MD WBC (Bld) [#/Vol] 7.7 10*3/uL Normal 3.8-10.8 [facility] Comment on above: Performed By: #### 7 600, 60579, 899, 71934, 6399, 866, 01755 #### [facility] [place] [address] [employer]: Porfirio Samano MD COMPREHENSIVE METABOLIC PANE L W/ANION GAPon 09-20-2024 Albumin [Mass/Vol] 4.5 g/dL Normal 3.6-5.1 [facility] Comment on above: Performed By: #### 7 600, 42622, 899, 86532, 6399, 866, 84809 #### [facility] [place] [address] [employer]: Porfirio Samano MD ALP [Catalytic activity/Vol] 60 U/L Normal 31-125 [facility] Comment on above: Performed By: #### 7 600, 91483, 899, 80254, 6399, 866, 71275 #### [facility] of [address], [address] [place] [address] C[employer] First: Porfirio Samano MD ALT [Catalytic activity/Vol] 13 U/L Normal 6-29 [facility] Comment on above: Performed By: #### 7 600, 89160, 899, 28572, 6399, 866, 05915 #### [facility] [place] [address] [employer]: Porfirio Samano MD AST [Catalytic activity/Vol] 12 U/L Normal 10-30 [facility] Comment on above: Performed By: #### 7 600, 90787, 899, 25433, 6399, 866, 78865 #### [facility] [place] [address] [employer] First: Porfirio Samano MD Bilirubin [Mass/Vol] 0.3 mg/dL Normal 0.2-1.2 [facility] Comment on above: Performed By: #### 7 600, 41028, 899, 62961, 6399, 866, 07612 #### [facility] [place] [address] [employer]: Porfirio Samano MD Calcium [Mass/Vol] 9.1 mg/dL Normal 8.6-10.2 [facility] Comment on above: Performed By: #### 7 600, 03264, 899, 66293, 6399, 866, 70616 #### [facility] [place] [address] [employer]: Porfirio Samano MD Chloride [Moles/Vol] 104 mmol/L Normal 98-110 [facility] Comment on above: Performed By: #### 7 600, 35727, 899, 74466, 6399, 866, 67272 #### [facility] [address], [address] [place] [address] [employer] First: Porfirio Samano MD CO2 [Moles/Vol] 29 mmol/L Normal 20-32 [facility] Comment on above: Performed By: #### 7 600, 18302, 899, 43612, 6399, 866, 00481 #### [facility] [place] [address] [employer]: Porfirio Samano MD Creatinine [Mass/Vol] 0.72 mg/dL Normal 0.50-0.97 [facility] Comment on above: Performed By: #### 7 600, 63332, 899, 61841, 6399, 866, 59268 #### [facility] [place] [address] [employer]: Porfirio Samano MD ELECTROLYTE BALANCE 6 mmol/L (calc) Low 7-17 [facility] Comment on above: Performed By: #### 7 600, 51814, 899, 28791, 6399, 866, 52071 #### [facility] [place] [address] [employer] First: Porfirio Samano MD GFR/1.73 sq M.predicted among non-blacks MDRD (S/P/Bld) [Vol rate/Area] 111 mL/min/{1.73_m2} Normal > OR = 60 [facility] Comment on above: Performed By: #### 7 600, 31551, 899, 30146, 6399, 866, 69510 #### [facility] [place] [address] [employer] First: Porfirio Samano MD Glucose [Mass/Vol] 85 mg/dL Normal 65-99 [facility] Comment on above: Result Comment: Fasting reference interval Performed By: #### 7 600, 45375, 899, 28083, 6399, 866, 58315 #### [facility] [place] [address] [employer]: Porfirio Samano MD Potassium [Moles/Vol] 4.1 mmol/L Normal 3.5-5.3 [facility] Comment on above: Performed By: #### 7 600, 43734, 899, 79286, 6399, 866, 73823 #### [facility] [place] [address] [employer] First: Porfirio Samano MD Protein [Mass/Vol] 7.0 g/dL Normal 6.1-8.1 [facility] Comment on above: Performed By: #### 7 600, 38095, 899, 56970, 6399, 866, 18641 #### [facility] [place] [address] [employer] First: Porfirio Samano MD Sodium [Moles/Vol] 139 mmol/L Normal 135-146 [facility] Comment on above: Performed By: #### 7 600, 24817, 899, 74349, 6399, 866, 39191 #### [facility] [place] [address] [employer] First: Porfirio Samano MD Urea nitrogen [Mass/Vol] 12 mg/dL Normal 7-25 [facility] Comment on above: Performed By: #### 7 600, 72758, 899, 95467, 6399, 866, 91867 #### [facility] [place] [address] [employer] First: Porfirio Samano MD HEMOGLOBIN A1c WITH eAGon eAG (mmol/L) 6.3 mmol/L Normal [facility] Comment on above: Performed By: #### 7 600, 93904, 899, 36150, 6399, 866, 52915 #### [facility] of [place] [address] [employer] First: Porfirio Samano MD HbA1c (Bld) [Mass fraction] [...] diagnosis of diabetes in children. According to [place] Diabetes Association (ADA) guidelines, hemoglobin A1c <7.0% represents optimal control in non- diabetic patients. Different metrics may apply to specific patient populations. Standards of Medical Care in Diabetes(ADA). Performed By: #### 7 600, 28981, 899, 23150, 6399, 866, 53178 #### [facility] [place] [address] [employer]: Porfirio Samano MD Magnesium [Mass/Vol] 114 mg/dL Normal [facility] Comment on above: Performed By: #### 7 600, 48718, 899, 07080, 6399, 866, 03595 #### [facility] [place] [address] [employer]: Porfirio Samano MD LIPID PANEL, [facility] 08-27 Cholesterol [Mass/Vol] 212 mg/dL High <200 [facility] Comment on above: Order Comment: FASTI NG:YES FASTING: YES Performed By: #### 7 600, 01345, 899, 04664, 6399, 866, 91410 #### [facility] [address], [address] [place] [address] [employer] First: Porfirio Samano MD Cholesterol in HDL [Mass/Vol] 50 mg/dL Normal > OR = 50 [facility] Comment on above: Order Comment: FASTI NG:YES FASTING: YES Performed By: #### 7 600, 66011, 899, 88839, 6399, 866, 31215 #### [facility] [address], [address] [place] [address] [employer] First: Porfirio Samano MD Cholesterol in LDL [Mass/Vol] [...] LDL-C. Aftab SS et al. CAROLYN. 2013;310(19): 1969-2972 (http://[email or web address].Omate/faq/ITM401) Performed By: #### 7 600, 92109, 899, 02900, 6399, 866, 15281 #### [facility] [address], [address] [place] [address] [employer] First: Porfirio Samano MD Cholesterol.total/C holesterol in HDL [Mass ratio] 4.2 {ratio} Normal <5.0 [facility] Comment on above: Order Comment: FASTI NG:YES FASTING: YES Performed By: #### 7 600, 62978, 899, 50875, 6399, 866, 56989 #### [facility] [address], [address] [place] [address] [employer] First: Porfirio Samano MD NON HDL CHOLESTEROL 162 mg/dL (calc) High <130 [facility] Comment on above: Order Comment: FASTI NG:YES FASTING: YES Result Comment: For patients with diabetes plus 1 major ASCVD risk factor, treating to a non-HDL-C goal of <100 mg/dL (LDL-C of <70 mg/dL) is considered a therapeutic option. Performed By: #### 7 600, 06245, 899, 90714, 6399, 866, 36633 #### [facility] [address], [address] [place] [address] [employer] First: Porfirio Samano MD Triglyceride [Mass/Vol] 137 mg/dL Normal <150 [facility] Comment on above: Order Comment: FASTI NG:YES FASTING: YES Performed By: #### 7 600, 96928, 899, 92994, 6399, 866, 71752 #### [facility] [address], [address] [place] [address] [employer] First: Porfirio Samano MD T3, FREEon 09-20-2024 Free T3 [Mass/Vol] 2.8 pg/mL Normal 2.3-4.2 [facility] Comment on above: Performed By: #### 7 600, 20384, 899, 98436, 6399, 866, 38459 #### [facility] [place] [address] [employer]: Porfirio Samano MD T4, FREE 09-20-2024 Free T4 [Mass/Vol] 0.9 ng/dL Normal 0.8-1.8 [facility] Comment on above: Performed By: #### 7 600, 87142, 899, 33390, 6399, 866, 63312 #### [facility] [place] [address] [employer]: Porfirio Samano MD TSHon 09-20-2024 TSH Qn 2.81 m[IU]/L Normal [facility] Comment on above: Result Comment: Refe rence Range > or = 20 Years 0.40-4.50 Ranges First trimester 0.26-2.66 Second trimester 0.55-2.73 Third trimester 0.43-2.91 Performed By: #### 7 600, 11668, 899, 18363, 6399, 866, 75960 #### [facility] [place] [address] [employer]: Porfirio Samano MD Non-mechanical engineering technician cytology studyon Non-gynecological cytology method study Pathology report.total SEE COMMENT Non-gynecologic Cytology Case: [id number] Authorizing Provider: Merry Reese APRN-ABIGAIL Collected: 09/19/2024 1058 Ordering Location: [facility] Received: 09/19/2024 1107 Center Pathologist: Lianet Cordero MD Specimen: THYROID FINE NEEDLE ASPIRATION RIGHT MID LOBE Path report.final diagnosis SEE COMMENT A. 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 at 1509 EDT Laboratory comment SEE COMMENT Slide(s) initially screened by CLAUDIA Infante at [facility] [address] [facility] [address] By the signature on this report, the [...] NGYN A1-9 Pap Stain NGYN ThinPrep Normal [facility] US GUIDED THYROID BIOPSYon 0 09-19-2024 US GUIDED THYROID BIOPSY Interpreted By: Ismael Piña, STUDY: US GUIDED THYROID BIOPSY; 09/19/2024 11:33 am INDICATION: Signs/Symptoms:nodule. COMPARISON: 09/07/2024 ACCESSION NUMBER(S): [id number] ORDERING CLINICIAN: MERRY REESE FINDINGS: A detailed [...] Ismael Piña 09/19/2024 12:21 PM Dictation workstation: [id number] [facility] US Guidance for fine needle aspiration of Thyroid glandon 09-19-2024 Successful ultrasound-guided fine-needle aspiration biopsy of the thyroid. Signed by: Ismael Piña 09/19/2024 12:21 PM Dictation workstation: [id number] SHERI JORDAN Interpreted By: Ismael Piña, STUDY: US GUIDED THYROID BIOPSY; 09/19/2024 11:33 am INDICATION: Signs/Symptoms:nodule. COMPARISON: 09/07/2024 ACCESSION NUMBER(S): [id number] ORDERING CLINICIAN: MERRY REESE FINDINGS: A detailed [...] am INDICATION: Signs/Symptoms:nodule. COMPARISON: 09/07/2024 ACCESSION NUMBER(S): [id number] ORDERING CLINICIAN: MERRY REESE FINDINGS: A detailed [...] Ismael Piña 09/19/2024 12:21 PM Dictation workstation: [id number] [facility] Work Phone: Radiology Study observation (narrative) [facility] Work Phone: US Guidance for fine needle aspiration of Thyroid glandOrdered By: Ismael Piña on 09-19-2024 [facility] Work Phone: XR CERVICAL SPINE 2-3 VIEWSo n 09-19-2024 XR CERVICAL SPINE 2-3 VIEWS Interpreted By: Jp Ruelas, STUDY: XR CERVICAL SPINE 2-3 VIEWS; ; 09/19/2024 9:52 am INDICATION: Signs/Symptoms:NUMBNESS AND TINGLING TO BUE. ,R20.0 Anesthesia of skin,R20.2 Paresthesia of skin COMPARISON: None. ACCESSION NUMBER(S): [id number] ORDERING CLINICIAN: MERRY REESE FINDINGS: Two views demonstrate about 2 mm C5 retrolisthesis. Mild degenerative disc space narrowing at C5-6. Heights of the vertebra are maintained. No unusual paravertebral soft tissue abnormality. IMPRESSION: Mild degenerative changes C5-6 including mild degenerative C5 retrolisthesis. MACRO: None Signed by: Jp Ruelas 09/20/2024 1:31 PM Dictation workstation: [id number] [facility] XR LUMBAR SPINE 6+ VIEWS INC LUDING OBLIQUE FLEXION EXTENSIONon 09-19-2024 XR LUMBAR SPINE 6+ VIEWS INCLUDING OBLIQUE FLEXION EXTENSION Interpreted By: Jp Ruelas, STUDY: XR LUMBAR SPINE 6+ VIEWS INCLUDING OBLIQUE FLEXION EXTENSION; ; 09/19/2024 9:53 am INDICATION: Signs/Symptoms:NUMBNESS AND TINGLING TO BLE. ,R20.0 Anesthesia of skin,R20.2 Paresthesia of skin COMPARISON: March 25, 2021 CT abdomen and pelvis ACCESSION NUMBER(S): [id number] ORDERING CLINICIAN: MERRY REESE FINDINGS: There are 5 non rib-bearing lumbar segments. Heights of the vertebra and intervertebral disc spaces are maintained. There are fracture, subluxation, spondylolysis or instability. No unusual paravertebral soft tissue abnormalities. IMPRESSION: No significant abnormality. MACRO: None Signed by: Jp Ruelas 09/20/2024 1:15 PM Dictation workstation: [id number] [facility] US THYROIDon 09-07-2024 US THYROID Interpreted By: Aaron Rodriguez, STUDY: US THYROID; 09/07/2024 12:37 pm INDICATION: Signs/Symptoms:NODULES. COMPARISON: 04/16/2022 ACCESSION NUMBER(S): [id number] ORDERING CLINICIAN: MERRY REESE TECHNIQUE: Multiple ultrasonographic [...] completely solid (2) Echogenicity: Hypoechoic (2) Shape: Ulvpq-ezwf-ykbu (0) Margin: Smooth (0) Echogenic Foci: Punctate [...] completely solid (2) Echogenicity: Hypoechoic (2) Shape: Nsejk-wzkn-lvbt (0) Margin: Smooth (0) Echogenic Foci: Punctate [...] completely solid (2) Echogenicity: Hypoechoic (2) Shape: Fpmsj-ifui-pptj (0) Margin: Smooth (0) Echogenic Foci: None [...] (2) Echogenicity: Hyperechoic or isoechoic (1) Shape: Kmdqi-ujoi-dlhh (0) Margin: Smooth (0) Echogenic Foci: None [...] are based on the recommendations of the [place] [employer] TI-RADS grading system. ACR [...] Aaron Maciel 09/09/2024 3:58 PM Dictation workstation: [id number] [facility] THIN PREP IMAGE SEND OUTon 0 08-19-2023 THINPREP TIS PAP SEE COMMENT [facility] Comment on above: Order Comment: Order ed on Fin# [id number] Result Comment: THIN PREP TIS PAP Lab: [facility] CLINICAL INFORMATION: None given LMP: None given prev. Pap: None given prev. Bx: None given SOURCE: None given STATEMENT OF ADEQUACY: Satisfactory for evaluation. Endocervical/transformation zone component absent. INTERPRETATION/RESULT: Cytology Results: Negative for intraepithelial lesion or malignancy. COMMENT: This Pap test has been evaluated with computer assisted technology. CIVIL PROJECT ENGINEER: CLAUDIA DENNIS(ASCP) CT screening location: [place] [address]. For questions contact [facility] Path[facility] Client Services at [phone] EXPLANATORY NOTE: The Pap is a screening test for cervical cancer. It is not a diagnostic test and is subject to false negative and false positive results. It is most reliable when a satisfactory sample, regularly obtained, is submitted with relevant clinical findings and history, and when the Pap result is evaluated along with historic and current clinical information. PERFORMING SITE: [facility] [address] [address] Safety Relief Valve Technician: PORFIRIO SAMANO MD, CLIA: [id number] Performed By: #### C [id number] #### [facility] [address] [place] [address] [employer]: Aftab Mcguire MD GP HPVon 08-18-2023 GP HPV Negative Normal [facility] Comment on above: Order Comment: Order ed on Fin# [id number] Result Comment: This HPV assay is being performed via a second generation NAAT that utilizes target capture, telehealth nurse mediated amplification and dual kenetic assay technologies. Performed By: #### C [id number] #### [facility] [address] [place] [address] [employer] First: Aftab Mcguire MD [facility] Physician Progress No rosita 08-16-2023 [facility] Physician Progress Note RAVEN PINK :1990 Registration Date:08/16/2023 Assessment/Plan This Visit Diagnosis 1. Cervical cancer screening Z12.4 discussed health maintenance. paps every 3 years if wnl. self-breast exams monthly. taught exam in detail. daily multi-vitamin and Calcium/Vitamin D. mammograms to start at 40 yo. Ordered: THIN PREP IMAGE SEND OUT, ROUTINE, 08/16/2023, Specimen type: CHAIR MENDER Spec, Cervix, Dx: Cervical cancer screening 2. [...] Oral THREE TIMES A DAY Pickup at [facility] Unchanged buPROPion (Wellbutrin XL 300 mg/ 24 hours oral tablet, extended release) 1 Tabs Oral DAILY Pickup at [facility] Unchanged amphetamine-dextroamphet amine (Adderall 20 mg oral tablet) Oral TWICE A DAY Contact prescribing physician if questions or concerns Unchanged sertraline (sertraline 100 mg oral tablet) 1 Tabs Oral DAILY Contact prescribing physician if questions or concerns Unchanged valACYclovir (Valtrex 500 mg oral tablet) Oral DAILY Contact prescribing physician if questions or concerns Pharmacy Information [facility]: [address] [facility] [place] [phone] Chief Complaint Annual physical exam, cycles are [...] Cognition normal. Judgment: Judgment normal. Vitals reviewed. CHAIR MENDER Additional Details-Patient Stated Menstrual History Last Menstrual Dcsyyt6107/18/2023 CHAIR MENDER Screening Date of Last Pap Smear08/16/2022 Last [...] Ankle Fract (more content not included)... Normal [facility] Ambulatory Clinical Summaryo n 08-16-2023 Ambulatory Clinical Summary RAVEN PINK :1990 Registration Date:08/16/2023 Ambulatory Visit Instructions Your Diagnosis Cervical cancer screening Encounter for screening for human papillomavirus (HPV) Cervical smear, as part of routine gynecological examination Your Care Team Attending Physician - OBIE SUAREZ, TIFAFNI Procedures Performed Left Ankle Fracture Repair with [...] release) 1 Tabs Oral DAILY Pickup at [facility] Unchanged sertraline (sertraline 100 mg oral tablet) 1 Tabs Oral DAILY Unchanged tranexamic acid = TXA (Lysteda 650 mg oral tablet) Oral THREE TIMES A DAY Unchanged valACYclovir (Valtrex 500 mg oral tablet) Oral DAILY Pharmacy Information [facility]: [facility] [place] [phone] Problems Ongoing - Any problem that you [...] call to get immediate medical attention! Normal [facility] Comprehensive Intake - Texto n 08-16-2023 Comprehensive [...] in, 163 cm) Body Mass Index Measured Sammarinese : 36.08 kg/m2 BSA Sammarinese : 2.07 m2 Sharmin Graham MA - [...] 13:34 EDT Infection Screening Travel outside of [place] within past 21 days? : No [...] 08/16/2023 13:36:23 EDT) Problems(Active) ADHD (SNOMED CT :4047417041 ) Name of Problem: ADHD ; Recorder: Sharmin Graham MA; Confirmation: Confirmed ; Classification: Medical ; Code: 8671105717 ; Contributor System: Tidalwave Trader ; Last Updated: 08/15/2023 11:47 EDT ; Life Cycle Date: 08/15/2023 ; Life Cycle Status: Active ; Vocabulary: SNOMED CT Anxiety and depression (SNOMED CT :037011871 ) Name of Problem: Anxiety and depression ; Recorder: Santos CLARK Sharmin S; Confirmation: Confirmed ; Classification: Medical ; Code: [id number] ; Contributor System: PowerChart ; Last Updated: 08/15/2023 11:46 EDT ; Life Cycle Date: 08/15/2023 ; Life Cycle Status: Active ; Vocabulary: SNOMED CT Herpes (SNOMED CT :778651240 ) Name of Problem: Herpes ; Recorder: Santos CLARK Sharmin Chahal; Confirmation: Confirmed ; Classification: Medical ; Code: 486207487 ; Contributor System: PowerChart ; Last Updated: 08/16/2023 13:34 EDT ; Life Cycle Date: 08/16/2023 ; Life Cycle Status: Active ; Vocabulary: SNOMED CT Irregular menses (SNOMED CT :787809753 ) Name of Problem: Irregular menses ; Recorder: Sharmin Graham MA; Confirmation: Confirmed ; Classification: Medical ; Code: [id number] ; Contributor System: PowerChart ; Last Updated: 08/15/2023 11:52 EDT ; Life Cycle Date: 08/15/2023 ; Life Cycle Status: Active ; Vocabulary: SNOMED CT PCOS (polycystic ovarian syndrome) (SNOMED CT :876464982 ) Name of Problem: PCOS (polycystic ovarian syndrome) ; Recorder: Santos CLARKSharmin; Confirmation: Confirmed ; Classification: Medical ; Code: 515854968 ; Contributor System: PowerChart ; Last Updated: 08/16/2023 13:36 EDT ; Life Cycle Date: 08/16/2023 ; Life Cycle Status: Active ; Vocabulary: SNOMED CT PMS (premenstrual syndrome) (SNOMED CT :182785112 ) Name of Problem: PMS (premenstrual syndrome) ; Recorder: Santos Sharmin CLARK; Confirmation: Confirmed ; Classification: Medical ; Code: 078996009 ; Contributor System: PowerChart ; Last Updated: [...] EDT by (more content not included)... Normal [facility] CHAIR MENDER Visit - Texton 4 CHAIR MENDER Visit - Text CHAIR MENDER Visit Entered On : 08/16/2023 13:34 EDT Performed On: 08/16/2023 13:34 EDT by Sharmin Graham MA CHAIR MENDER Screenings Date of Last Pap Smear : 08/16/2022 Last Pap Result : Negative Sharmin Graham MA - 08/16/2023 13:34 EDT Normal [facility] CHAIR MENDER Visit - Texton 4 CHAIR MENDER Visit - Text CHAIR MENDER Visit Entered On : 08/15/2023 11:55 EDT Performed On: 08/15/2023 11:54 EDT by Sharmin Graham MA CHAIR MENDER Screenings Date of Last Pap Smear : 08/16/2022 Last Pap Result : Negative Sharmin Graham MA - 08/15/2023 11:54 EDT Normal [facility] Radiologyon 04-16-2022 US Thyroid gland Normal MP-Chris guevara Work Phone: Pain Mgt Drug Panel, Hi Res, Uron 09-18-2021 6-acetylmorphine (cutoff 20 ng/mL) Not detected Normal [facility] 7-Aminoclonazepam (cutoff 40 ng/mL) Not detected Normal [facility] Qdwru-EU-Fjrrsycums (cutoff 20 ng/mL) Not detected Normal [facility] Lavfv-NU-Hddivluqm (cutoff 20 ng/mL) Not detected Normal [facility] Alprazolam (cutoff 40 ng/mL) Not detected Normal [facility] Amphetamine (cutoff 100 ng/mL) Present Normal [facility] Barbiturates (cutoff 200 ng/mL) Not detected Normal [facility] Benzoylecgonine Ql (U) Not detected Normal [facility] Buprenorphine (cutoff 5 ng/mL) Not detected Normal [facility] Carisoprodol (cutoff 100 ng/mL) Not detected Normal [facility] Comment on above: Result Comment: The carisoprodol immunoassay has cross- reactivity to carisoprodol and meprobamate. Clonazepam (cutoff 20 ng/mL) Not detected Normal [facility] Codeine (cutoff 40 ng/mL) Not detected Normal [facility] Creatinine, Urine 252.2 mg/dL Normal 20.0-400.0 [facility] Diazepam (cutoff 50 ng/mL) Not detected Normal [facility] EER Pain Mgt Drug Panel High Res/EMIT U See Note Normal [facility] Comment on above: Result Comment: Auth orized individuals can access the ConnectQuest Enhanced Report using the following link: [email or web address] Performed By: [facility] [address] [place] [address] Safety Relief Valve Technician: Taylor Mccullough MD Ethyl Glucuronide (cutoff 500 ng/mL) Not detected Normal [facility] Fentanyl (cutoff 2 ng/mL) Not detected Normal [facility] Gabapentin (cutoff 100 ng/mL) Not detected Normal [facility] Hydrocodone (cutoff 40 ng/mL) Not detected Normal [facility] Hydromorphone (cutoff 40 ng/mL) Not detected Normal [facility] Lorazepam (cutoff 60 ng/mL) Not detected Normal [facility] Marijuana Metabolite (cutoff 20 ng/mL) Present Normal [facility] MDA (cutoff 200 ng/mL) Not detected Normal [facility] MDEA-[place] (cutoff 200 ng/mL) Not detected Normal [facility] MDMA-Ecstasy (cutoff 200 ng/mL) Not detected Normal [facility] Meperidine metabolite (cutoff 50 ng/mL) Not detected Normal [facility] Methadone Ql (U) Not detected Normal [facility] Methamphetamine (cutoff 400 ng/mL) Not detected Normal [facility] Methylphenidate (cutoff 100 ng/mL) Not detected Normal [facility] Midazolam (cutoff 20 ng/mL) Not detected Normal [facility] Morphine (cutoff 20 ng/mL) Not detected Normal [facility] Naloxone (cutoff 100 ng/mL) Not detected Normal [facility] Norbuprenorphine (cutoff 20 ng/mL) Not detected Normal [facility] Nordiazepam (cutoff 50 ng/mL) Not detected Normal [facility] Norfentanyl (cutoff 2 ng/mL) Not detected Normal [facility] Norhydrocodone (cutoff 100 ng/mL) Not detected Normal [facility] Noroxycodone (cutoff 100 ng/mL) Not detected Normal [facility] Noroxymorphone (cutoff 100 ng/mL) Not detected Normal [facility] Oxazepam (cutoff 50 ng/mL) Not detected Normal [facility] Oxycodone (cutoff 40 ng/mL) Not detected Normal [facility] Oxymorphone (cutoff 40 ng/mL) Not detected Normal [facility] Pain Management Drug Panel See Below Normal [facility] Comment on above: Result Comment: Meth [...] developed and its performance characteristics determined by [facility]. It has not been cleared or approved by the [place] Food and Drug Administration. This test was performed in a CLIA certified laboratory and is intended for clinical purposes. PCP (cutoff 25 ng/mL) Not detected Normal [facility] Phentermine (cutoff 100 ng/mL) Not detected Normal [facility] Pregabalin (cutoff 100 ng/mL) Not detected Normal [facility] Tapentadol (cutoff 100 ng/mL) Not detected Normal [facility] Pfexlddbvh-n-Dkjy (cutoff 200 ng/mL) Not detected Normal [facility] Temazepam (cutoff 50 ng/mL) Not detected Normal [facility] Tramadol (cutoff 200 ng/mL) Not detected Normal [facility] Zolpidem (cutoff 20 ng/mL) Not detected Normal [facility] Culture, Throaton 06-04-2021 Culture, Throat ORDER#: [id number] ORDERED BY: CONCHA MA SOURCE: Throat Throat COLLECTED: 06/04/21 19:05 ANTIBIOTICS AT PEDRO.: RECEIVED : 06/04/21 20:07 Culture, Throat FINAL 06/07/21 11:03 Cult,Throat: Oral mikhail, negative for Group A Strep and other beta Cult,Throat: hemolytic streptococci Performed at [place] [address] [place] [address] ([phone] [facility] Comment on above: Performed By: #### C XTHR #### [facility] [address] [facility] [id number] BASIC METABOLIC PANELon 12-2 Anion gap [Moles/Vol] 14 mmol/L Normal - [facility] Comment on above: Performed By: #### B MP #### [facility] [address] [place] [address] Calcium [Mass/Vol] 10.0 mg/dL Normal 8.6 - 10.3 [facility] Comment on above: Performed By: #### B MP #### [address] [address] Chloride [Moles/Vol] 100 mmol/L Normal 98 - 107 [facility] Comment on above: Performed By: #### B MP #### [address] [address] Creatinine [Mass/Vol] 0.73 mg/dL Normal 0.50 - 1.05 [facility] Comment on above: Performed By: #### B MP #### [address] [address] GFR- AM. >60 Normal >60 [facility] Comment on above: Result Comment: CALC ULATIONS OF ESTIMATED GFR ARE PERFORMED USING THE MDRD STUDY EQUATION FOR THE IDMS-TRACEABLE CREATININE METHODS. CLIN CHEM 2007;53:766-72 Performed By: #### B MP #### [address] [address] GFR-NON AM. >60 Normal >60 [facility] Comment on above: Performed By: #### B MP #### [address] [address] Glucose [Mass/Vol] 92 mg/dL Normal 74 - 99 [facility] Comment on above: Performed By: #### B MP #### [address] [address] HCO3 (Bld) [Moles/Vol] 23 mmol/L Normal 21 - 32 [facility] Comment on above: Performed By: #### B MP #### [address] [address] Potassium [Moles/Vol] 3.6 mmol/L Normal 3.5 - 5.3 [facility] Comment on above: Performed By: #### B MP #### [address] [address] Sodium [Moles/Vol] 133 mmol/L Low 136 - 145 [facility] Comment on above: Performed By: #### B MP #### [address] [address] Urea nitrogen [Mass/Vol] 9 mg/dL Normal 6 - 23 [facility] Comment on above: Performed By: #### B MP #### [address] [address] CBC AND DIFFERENTIALon 03-25 DIFFERENTIAL SEE MANUAL DIFF Normal [facility] Comment on above: Performed By: #### C BCDF #### [place] [id number] Erythrocyte distribution width (RBC) [Ratio] 13.4 % Normal 11.5 - 14.5 [facility] Comment on above: Performed By: #### C BCDF #### [place] [id number] Hematocrit (Bld) [Volume fraction] 37.9 % Normal 36.0 - 46.0 [facility] Comment on above: Performed By: #### C BCDF #### [place] [id number] Hemoglobin (Bld) [Mass/Vol] 12.7 g/dL Normal 12.0 - 16.0 [facility] Comment on above: Performed By: #### C BCDF #### [place] [id number] MCHC (RBC) [Mass/Vol] 33.6 g/dL Normal 32.0 - 36.0 [facility] Comment on above: Performed By: #### C BCDF #### [address] [address] MCV (RBC) [Entitic vol] 86 fL Normal 80 - 100 [facility] Comment on above: Performed By: #### C BCDF #### [address] [address] Platelets (Bld) [#/Vol] 309 10*3/uL Normal 150 - 450 [facility] Comment on above: Performed By: #### C BCDF #### [address] [address] RBC 4.39 x10E12/L Normal 4.00 - 5.20 [facility] Comment on above: Performed By: #### C BCDF #### [facility] [address] [place] [address] WBC (Bld) [#/Vol] 7.2 10*3/uL Normal 4.4 - 11.3 [facility] Comment on above: Performed By: #### C BCDF #### [place] [place] [address] CT ABDOMEN AND PELVIS W IV C ONTRASTon 03-25-2021 CT ABDOMEN AND PELVIS W IV CONTRAST Patient Name: RAVEN PINK STUDY: CT ABDOMEN AND PELVIS W IV CONTRAST; 03/25/2021 4:38 pm INDICATION: abd pain, fever, low back pain . COMPARISON: None. ACCESSION NUMBER(S): [id number] ORDERING CLINICIAN: MARCIE DUEÑAS TECHNIQUE: CT of [...] Electronically signed by: FRANCHESCA VELA MD Normal [facility] CT Abdomen and Pelvis with I [...] ( test) Ql (U) Negative Normal Negative [facility] Comment on above: Performed By: #### H CGU #### [place] [address] HEPATIC FUNCTION PANELon Albumin [Mass/Vol] 4.3 g/dL Normal 3.4 - 5.0 [facility] Comment on above: Performed By: #### H EPFP #### [address] [address] ALP [Catalytic activity/Vol] 53 U/L Normal 33 - 110 [facility] Comment on above: Performed By: #### H EPFP #### [address] [address] ALT [Catalytic activity/Vol] 23 U/L Normal 7 - 45 [facility] Comment on above: Result Comment: Blank ents treated with Sulfasalazine may generate falsely decreased results for ALT. Performed By: #### H EPFP #### [address] [address] AST [Catalytic activity/Vol] 21 U/L Normal 9 - 39 [facility] Comment on above: Performed By: #### H EPFP #### [address] [address] Bilirubin [Mass/Vol] 0.4 mg/dL Normal 0.0 - 1.2 [facility] Comment on above: Performed By: #### H EPFP #### [address] [address] Bilirubin.indirect [Mass/Vol] 0.1 mg/dL Normal 0.0 - 0.3 [facility] Comment on above: Performed By: #### H EPFP #### [address] [address] Protein [Mass/Vol] 7.8 g/dL Normal 6.4 - 8.2 [facility] Comment on above: Performed By: #### H EPFP #### [address] [address] Hepatic Function Panelon Albumin BCP dye [Mass/Vol] 4.3 g/dL 3.4 - 5.0 -Otolaryngo [facility] [employer] [facility] Work Phone: ALP [Catalytic activity/Vol] 53 U/L 33 - 110 -[facility]tolarynjackson hospitalMicro Interventional Devicesffiel d Work Phone: ALT With P-5'-P [Catalytic activity/Vol] 23 U/L 7 - 45 -Otrichmondyn [employer] Work Phone: Comment on above: Patients treated wit h Sulfasalazine may generate falsely decreased results for ALT. AST With P-5'-P [Catalytic activity/Vol] 21 U/L 9 - 39 -Otolaryn [employer] Work Phone: Bilirubin [Mass/Vol] 0.4 mg/dL 0.0 - 1.2 -Otolaryngo [employer] Work Phone: Bilirubin.direct [Mass/Vol] 0.1 mg/dL 0.0 - 0.3 -Otolaryn [employer] Work Phone: Protein [Mass/Vol] 7.8 g/dL 6.4 - 8.2 -Tip laryngo [employer] Work Phone: LACTATEon 03-25-2021 Lactate [Moles/Vol] 1.7 mmol/L Normal 0.4 - 2.0 [facility] Comment on above: Result Comment: Keisha puncture immediately after or during the administration of Metamizole may lead to falsely low results. Testing should be performed immediately prior to Metamizole dosing. Performed By: #### L ACT #### [place] [address] LIPASEon 03-25-2021 Lipase [Catalytic activity/Vol] 21 U/L Normal 9 - 82 [facility] Comment on above: Result Comment: Keisha puncture immediately after or during the administration of Metamizole may lead to falsely low results. Testing should be performed immediately prior to Metamizole dosing. F-mnlvio-x-benzoquinone imine (metabolite of Acetaminophen) will generate erroneously low results in samples for patients that have taken toxic doses of acetaminophen. Performed By: #### L IPAS ####[place] [id number] Laboratory - Chemistry and C hemistry - [...] WBC (Bld) 7.0 % 2.0 - 10.0 [facility] [employer] Work Phone: Lactate, Levelon 03-25-2021 Lactate [Moles/Vol] 1.7 mmol/L 0.4 - 2.0 -Ot [facility] [employer] Work Phone: Comment on above: Venipuncture immedia tely after or during the administration of Metamizole may lead to falsely low results. Testing should be performed immediately prior to Metamizole dosing. Lipase, Serumon 03-25-2021 Lipase [Catalytic activity/Vol] 21 U/L 9 - 82 [facility] [employer] Work Phone: Comment on above: Venipuncture immedia tely after or during the administration of Metamizole may lead to falsely low results. Testing should be performed immediately prior to Metamizole dosing. E-djeheg-v-benzoquinone imine (metabolite of Acetaminophen) will generate erroneously low results in samples for patients that have taken toxic doses of acetaminophen. MANUAL DIFFERENTIALon 2020 % BAND NEUTROPHIL 4.0 % Normal 0.0 - 5.0 [facility] Comment on above: Performed By: #### M DIFF ####[address] [address] % BASOPHIL 0.0 % Normal 0.0 - 2.0 [facility] Comment on above: Performed By: #### M DIFF ####[address] [address] % EOSINOPHIL 2.0 % Normal 0.0 - 6.0 [facility] Comment on above: Performed By: #### M DIFF ####[address] [address] % LYMPHOCYTE 6.0 % Normal 13.0 - 44.0 [facility] Comment on above: Performed By: #### M DIFF ####[address] [address] % MONOCYTE 7.0 % Normal 2.0 - 10.0 [facility] Comment on above: Performed By: #### M DIFF ####[address] [address] % SEG NEUTROPHIL 81.0 % Normal 40.0 - 80.0 [facility] Comment on above: Result Comment: Perc ent differential counts (%) should be interpreted in the context of the absolute cell counts (cells/L). Performed By: #### M DIFF ####[place] [address] ANC 6.12 x10E9/L Normal 1.20 - 7.70 [facility] Comment on above: Performed By: #### M DIFF ####[place] [address] BAND NEUTROPHIL 0.29 x10E9/L Normal 0.00 - 0.70 [facility] Comment on above: Performed By: #### M DIFF ####[place] [id number] BASOPHIL 0.00 x10E9/L Normal 0.00 - 0.10 [facility] Comment on above: Performed By: #### M DIFF ####[address] [address] EOSINOPHIL 0.14 x10E9/L Normal 0.00 - 0.70 [facility] Comment on above: Performed By: #### M DIFF ####[place] [address] LYMPHOCYTE 0.43 x10E9/L Low 1.20 - 4.80 [facility] Comment on above: Performed By: #### M DIFF ####[address] [address] MONOCYTE 0.50 x10E9/L Normal 0.10 - 1.00 [facility] Comment on above: Performed By: #### M DIFF ####[place] [address] SEG NEUTROPHIL 5.83 x10E9/L Normal 1.20 - 7.00 [facility] Comment on above: Performed By: #### M DIFF ####[facility] Panel Informationon 03-25 NORMAL MP-Otolaryngo logy-Sheffiel [...] made to minimize errors. Minor errors in telehealth nurse may be present. Please call if questions.. [...] Clinical Impression, (more content not included)... Normal [facility] RED CELL MORPHOLOGYon 2020 RBC morphology finding Nom (Bld) NORMAL Normal [facility] Comment on above: Performed By: #### M ORP2 #### [place] [address] Risk Screen - Adult Emergenc yon 03-25-2021 [...] Preferencesindividual instruction; audio Cultural Considerationsnone Developmental Considerationsnone Protestant Considerationsnone Learning Assessment (Other Learner): Learning Assessment (Other Learner): Other learner availableno Pressure Injury/TB/Substance: Pressure Injury: Pressure Injury Present on Admissionno Do you have a coughno Smoking Statusnever smoker Alcohol Usedenies Drug Usedenies Drug 2 Usedenies Admission Risk Screen: Significant IndicatorsComplete CAGE: CAGE: Is this an injured patient at a Trauma Center ([facility]/[place]): no Electronic Signatures: Tommy Phipps (RN) (Signed 25-Mar-2021 14:04) Authored: Preferred Language, Advanced Directives, Family Violence Adult, Learning Assessment (Patient), Learning Assessment (Other Learner), Pressure Injury/TB/Substance, Pressure Injury, CAGE Last Updated: 25-Mar-2021 14:04 by Tommy Phipps (RN) Normal [facility] TSHon 03-25-2021 TSH Qn 1.86 m[IU]/L Normal 0.44 - 3.98 [facility] Comment on above: Result Comment: TSH testing is performed using different testing methodology at [facility] than at [facility]. Direct result comparisons should only be made within the same method. Performed By: #### T SH2 #### [place] [address] TSH - Thyroid Stimulating Ho jessica Serumon 03-25-2021 TSH Qn 1.86 m[IU]/L See Below MP-Otolaryng yaneth guevara Work Phone: Comment on above: Reference Range: 0.4 4 - 3.98 TSH testing is performed using different testing methodology at [facility] than at [facility]. Direct result comparisons should only be made [...] BMI (kg/m2): 37.497 Calculated BSA (m2) 2.02 Melfa Coma Scale: Best Eye Response: (E4) spontaneous [...] 25-Mar-2021 15:23 by Tommy Phipps (FELICITAS) Normal [facility] URINALYSISon 03-25-2021 Appearance (U) CLEAR Normal CLEAR [facility] Comment on above: Performed By: #### U A #### [address] [address] Bilirubin Ql (U) Negative Normal NEGATIVE [facility] Comment on above: Performed By: #### U A #### [address] [address] Color (U) Straw Normal STRAW,YELLOW [facility] Comment on above: Performed By: #### U A #### [place] [address] Glucose Ql (U) Negative Normal NEGATIVE [facility] Comment on above: Performed By: #### U A #### [place] [address] Hemoglobin Ql (U) Negative Normal NEGATIVE [facility] Comment on above: Performed By: #### U A #### [place] [address] Ketones Ql (U) Negative Normal NEGATIVE [facility] Comment on above: Performed By: #### U A #### [place] [address] Leukocyte esterase Test strip Ql (U) Negative Normal NEGATIVE [facility] Comment on above: Performed By: #### U A #### [place] [id number] Nitrite Ql (U) Negative Normal NEGATIVE [facility] Comment on above: Performed By: #### U A #### [place] [address] pH (U) 9.0 [pH] High 5.0 - 8.0 [facility] Comment on above: Performed By: #### U A #### [place] [id number] Protein Ql (U) Negative Normal NEGATIVE [facility] Comment on above: Performed By: #### U A #### [place] [address] Specific gravity (U) [Rel density] 1.006 Normal 1.005 - 1.035 [facility] Comment on above: Performed By: #### U A #### [address] [place] [address] Urobilinogen (U) [Mass/Vol] mg/dL Normal 0.0 - 1.9 [facility] Comment on above: Performed By: #### U A #### [address] [place] [address] Urinalysison 03-25-2021 Color (U) Straw See Below [...] ( test) Ql (U) Negative Negative MP-Otolaryngo [employer] Work Phone: Radiologyon 03-23-2021 US Thyroid gland Normal MP-Otola ryngo [employer] d Work Phone: US THYROIDon 03-23-2021 US THYROID Patient Name: RAVEN PINK STUDY: US THYROID; 03/23/2021 9:36 am INDICATION: thyroid nodules. Follow-up. COMPARISON: 07/11/2020 ACCESSION NUMBER(S): [id number] ORDERING CLINICIAN: WILFREDO PASCUAL TECHNIQUE: Grayscale and [...] Electronically signed by: MABLE ROBERTS MD Normal [facility] Pain Mgt Drug Panel, Hi Res, Uron 02-14-2021 6-acetylmorphine (cutoff 20 ng/mL) Not detected Normal [facility] 7-Aminoclonazepam (cutoff 40 ng/mL) Not detected Normal [facility] Shvni-PT-Vajjdbnptl (cutoff 20 ng/mL) Not detected Normal [facility] Zpkwu-CH-Cuxlvrsmp (cutoff 20 ng/mL) Not detected Normal [facility] Alprazolam (cutoff 40 ng/mL) Not detected Normal [facility] Amphetamine (cutoff 100 ng/mL) Present Normal [facility] Barbiturates (cutoff 200 ng/mL) Not detected Normal [facility] Benzoylecgonine Ql (U) Not detected Normal [facility] Buprenorphine (cutoff 5 ng/mL) Not detected Normal [facility] Carisoprodol (cutoff 100 ng/mL) Not detected Normal [facility] Comment on above: Result Comment: The carisoprodol immunoassay has cross- reactivity to carisoprodol and meprobamate. Clonazepam (cutoff 20 ng/mL) Not detected Normal [facility] Codeine (cutoff 40 ng/mL) Not detected Normal [facility] Creatinine, Urine 172.1 mg/dL Normal 20.0-400.0 [facility] Diazepam (cutoff 50 ng/mL) Not detected Normal [facility] EER Pain Mgt Drug Panel High Res/EMIT U See Note Normal [facility] Comment on above: Result Comment: Corwin alanis ConnectQuest Enhanced Report using the link below: -Direct access: [email or web address] Performed By: [facility] [address] [place] [id number] Safety Relief Valve Technician: Taylor Mccullough MD Ethyl Glucuronide (cutoff 500 ng/mL) Not detected Normal [facility] Fentanyl (cutoff 2 ng/mL) Not detected Normal [facility] Gabapentin (cutoff 100 ng/mL) Not detected Normal [facility] Hydrocodone (cutoff 40 ng/mL) Not detected Normal [facility] Hydromorphone (cutoff 40 ng/mL) Not detected Normal [facility] Lorazepam (cutoff 60 ng/mL) Not detected Normal [facility] Marijuana Metabolite (cutoff 20 ng/mL) Present Normal [facility] MDA (cutoff 200 ng/mL) Not detected Normal [facility] MDEA-[place] (cutoff 200 ng/mL) Not detected Normal [facility] MDMA-Ecstasy (cutoff 200 ng/mL) Not detected Normal [facility] Meperidine metabolite (cutoff 50 ng/mL) Not detected Normal [facility] Methadone Ql (U) Not detected Normal [facility] Methamphetamine (cutoff 400 ng/mL) Not detected Normal [facility] Methylphenidate (cutoff 100 ng/mL) Not detected Normal [facility] Midazolam (cutoff 20 ng/mL) Not detected Normal [facility] Morphine (cutoff 20 ng/mL) Not detected Normal [facility] Naloxone (cutoff 100 ng/mL) Not detected Normal [facility] Norbuprenorphine (cutoff 20 ng/mL) Not detected Normal [facility] Nordiazepam (cutoff 50 ng/mL) Not detected Normal [facility] Norfentanyl (cutoff 2 ng/mL) Not detected Normal [facility] Norhydrocodone (cutoff 100 ng/mL) Not detected Normal [facility] Noroxycodone (cutoff 100 ng/mL) Not detected Normal [facility] Noroxymorphone (cutoff 100 ng/mL) Not detected Normal [facility] Oxazepam (cutoff 50 ng/mL) Not detected Normal [facility] Oxycodone (cutoff 40 ng/mL) Not detected Normal [facility] Oxymorphone (cutoff 40 ng/mL) Not detected Normal [facility] Pain Management Drug Panel See Below Normal [facility] Comment on above: Result Comment: Meth [...] developed and its performance characteristics determined by [employer]. It has not been cleared or approved by the US Food and Drug Administration. This test was performed in a CLIA certified laboratory and is intended for clinical purposes. PCP (cutoff 25 ng/mL) Not detected Normal [facility] Phentermine (cutoff 100 ng/mL) Not detected Normal [facility] Pregabalin (cutoff 100 ng/mL) Not detected Normal [facility] Tapentadol (cutoff 100 ng/mL) Not detected Normal [facility] Akzrthdiob-o-Wqmn (cutoff 200 ng/mL) Not detected Normal [facility] Temazepam (cutoff 50 ng/mL) Not detected Normal [facility] Tramadol (cutoff 200 ng/mL) Not detected Normal [facility] Zolpidem (cutoff 20 ng/mL) Not detected Normal [facility] Office Visit (Otolaryngology )on 07-22-2020 Follow-up [...] reflux disease); MARIZA = N; Sent To: [employer] 1880; Last Updated By: [email or web address]; 07/22/2020 4:47:36 PM Multiple thyroid nodules Ultrasound Thyroid; Status:Hold For - Scheduling; Requested for:[id number]; Perform:[facility]iology Services Imaging; Due:[id number];Ordered; For:Multiple thyroid nodules; Ordered By:Wilfredo Pascual; Radiologist [...] Jul 22 2020 4:49PM EST (Author) Normal [facility] US THYROIDon 07-11-2020 US THYROID Patient Name: RAVEN PINK STUDY: US THYROID; 07/11/2020 11:11 am INDICATION: BILATERAL THYROID NODULES Nontoxic multinodular goiter. COMPARISON: None ACCESSION NUMBER(S): [id number] ORDERING CLINICIAN: WILFREDO PASCUAL TECHNIQUE: Multiple ultrasonographic [...] Electronically signed by: OLGA MENDEZ MD Normal [facility] GI COMP PHARYNGEAL SPEECH EV Santo 04-04-2020 GI COMP PHARYNGEAL SPEECH EVAL Patient Name: RAVEN PINK STUDY: GI COMP PHARYNGEAL SPEECH EVAL; 04/04/2020 10:39 am INDICATION: DYSHAGIA. COMPARISON: None. ACCESSION NUMBER(S): [id number] ORDERING CLINICIAN: WILFREDO PASCUAL TECHNIQUE: Radiographic and videographic assistance was provided to the speech pathologist performing modified barium swallow. FINDINGS: Fluoroscopy and cine radiography provided for modified barium swallow performed by speech pathologist. Please refer to their detailed report. FLUOROSCOPY TIME: 1 minutes 20 seconds IMPRESSION: Correlate with detailed report from speech pathologist for dietary recommendations. Electronically signed by: MIGUEL JEFFERY MD [facility] TEST DIRECTOR (MBSS)on 04-04-2020 TEST DIRECTOR (MBSS) Therapy Diagnosis Assessed Cervical dysphagia (787.29) [...] Signatures Electronically signed by : Angela Shine CCC-TEST DIRECTOR; Apr 04 2020 12:14PM EST (Author) Normal [facility] Office Visit (Otolaryngology )on 03-31-2020 Follow-up visit [...] Recorded: 31Mar2020 01:50PM Height5 ft 2 in Vbbdfu662 lb BMI Edniyzimyc14.41 BSA Calculated1.95 Physical Exam General appearance: No [...] follow up for up to 5 years [facility], [place] EXAMINATION: US HEAD NECK SOFT TISSUE THYROID DATE AND TIME:02/26/2020 9:45 AM CLINICAL HISTORY: Thyromegaly R13.10 Esophageal dysphagia ICD10 COMPARISONS: None TECHNIQUE: Biplanar images were obtained. Please note that description of thyroid nodules in this report is based on the 2017 Thyroid Imaging, Reporting and Data System (TI- RADS) established by the [employer] [employer] to help provide guidance [...] lobe without a discrete nodule clearly identified. [facility]- [place], [place] [employer], [employer] Incoming Radiant Results From [employer] - 02/27/2020 4:45 PM EST EXAMINATION: US HEAD NECK SOFT TISSUE THYROID DATE AND TIME:02/26/2020 9:45 AM CLINICAL HISTORY: Thyromegaly R13.10 Esophageal dysphagia ICD10 COMPARISONS: None TECHNIQUE: Biplanar images were obtained. Please note that description of thyroid nodules in this report is based on the 2017 Thyroid Imaging, Reporting and Data System (TI- RADS) established by the [employer] to help provide guidance [...] follow up for up to 5 years [place], [place] US HEAD NECK SOFT TISSUE THY [...] Data System (TI- RADS) established by the [place] to help provide guidance [...] Kip Naranjo MD 02/27/20 Final result Normal [facility] CBC With Differentialon 03-29 Basophils Auto #/vol (Bld) 0.02 10*3/uL Normal 0.01-0.07 [facility] Comment on above: Performed By: #### T S3 ####[facility] [address] [place] [address] Basophils/100 WBC Auto (Bld) 0.2 % Normal 0.1-1.2 [facility] Comment on above: Performed By: #### T S3 ####[facility] [address] [place] [address] Eosinophils 0.18 10*3/uL Normal 0.04-0.50 [facility] Comment on above: Performed By: #### T S3 ####[facility] Y[address] [place] [address] Eosinophils/100 leukocytes 2.2 % Normal 0.0-8.1 [facility] Comment on above: Performed By: #### T S3 ####[facility] [address] [place] [address] Erythrocyte distribution width Auto Ratio (RBC) 14.6 % Normal 12.0-15.4 [facility] Comment on above: Performed By: #### T S3 ####[facility] E[address] [place] [address] Erythrocytes (RBC) 4.02 10*6/uL Normal 3.85-5.10 [facility] Comment on above: Performed By: #### T S3 ####[facility] Wfu[address] [facility] [place] [address] Erythrocytes (RBC) 0.0 /100{WBCs} Normal [facility] Comment on above: Performed By: #### T S3 ####[facility] [address] [place] [address] Erythrocytes (RBC) 0.00 10*3/uL Normal [facility] Comment on above: Performed By: #### T S3 ####[facility] Bqu[address] [facility] [place] [address] Hematocrit (HCT) 35.4 % Low 36.5-46.6 [facility] Comment on above: Performed By: #### T S3 ####[address] [place] [address] Hemoglobin mass conc (Bld) 11.8 g/dL Normal 11.8-15.3 [facility] Comment on above: Performed By: #### T S3 ####[facility] [address] [place] [address] Imm Grans Absolute 0.04 10*3/uL Normal 0.00-0.21 [facility] Comment on above: Performed By: #### T S3 ####[facility] [address]vz[address] [place] [address] Immature granulocytes #/vol (Bld) 0.5 % Normal [facility] Comment on above: Performed By: #### T S3 ####[facility] Ywq[address] [facility] [place] [address] Lymphocytes 1.79 10*3/uL Normal 0.40-2.84 [facility] Comment on above: Performed By: #### T S3 ####[facility] [address] [facility] [place] [address] Lymphocytes/100 leukocytes 22.1 % Normal 15.7-50.5 [facility] Comment on above: Performed By: #### T S3 ####[facility] [address] [place] [address] MCH 29.4 pg Normal 27.5-33.0 [facility] Comment on above: Performed By: #### T S3 ####[facility] [address] [facility] [place] [address] MCHC mass conc (RBC) 33.3 g/dL Normal 30.1-35.0 [facility] Comment on above: Performed By: #### T S3 ####[facility] [address]mt[address] [place] [address] MCV 88.1 fL Normal 85.4-100.0 [facility] Comment on above: Performed By: #### T S3 ####[facility] [address]rt[address] [place] [address] Monocytes 0.31 10*3/uL Normal 0.25-0.83 [facility] Comment on above: Performed By: #### T S3 ####[facility] [address]hl[address] [place] [address] Monocytes/100 leukocytes 3.8 % Low 4.8-12.7 [facility] Comment on above: Performed By: #### T S3 ####[facility] [address] [place] [address] Neutrophils 5.75 10*3/uL Normal 1.95-6.85 [facility] Comment on above: Performed By: #### T S3 ####[facility] Tun[address] [place] [address] Neutrophils/100 leukocytes 71.2 % Normal 36.8-73.2 [facility] Comment on above: Performed By: #### T S3 ####[facility] Y[address] [facility] [place] [address] Platelet mean volume (PMV) 10.7 fL Normal 9.9-12.1 [facility] Comment on above: Performed By: #### T S3 ####[facility] [address] [facility] [place] [address] Platelets 181 10*3/uL Normal 155-404 [facility] Comment on above: Performed By: #### T S3 ####[facility] [address] [place] [address] RDW SD 47.0 fL Normal 39.3-48.6 [facility] Comment on above: Performed By: #### T S3 ####[address] [place] [address] WBC (Leukocytes) 8.1 10*3/uL Normal 4.4-9.9 [facility] Comment on above: Performed By: #### T S3 ####[address] [address] Type and Screenon 04-25-2017 Antibody Screen Negative Normal [facility] Comment on above: Performed By: #### T S3 ####[address] [address] Group and Rh Positive Normal [facility] Comment on above: Performed By: #### T S3 ####[address] [address] PREG COMPL ECHO W/O DYLAN MARCO ANTONIO [...] mg/dL<105 mg/dL Performed By: #### T S3 ####[facility] [address] [place] [address] Glucose Tolerance 3hr Pregna ncyon 01-28-2017 Glucose mass conc 145 mg/dL Normal <190 [facility] Comment on above: Performed By: #### T S3 ####[facility] [address]fk[address] [place] [address] Glucose mass conc 132 mg/dL Normal <165 [facility] Comment on above: Performed By: #### T S3 ####[facility] [address] [place] [address] Glucose mass conc 76 mg/dL Normal <145 [facility] Comment on above: Performed By: #### T S3 ####[facility] [address] [place] [address] Glucose, WB POCon 01-28-2017 Glucose mass conc 83 mg/dL Normal 70-100 [facility] Comment on above: Performed By: #### T S3 ####[facility] [address] [place] [address] CBCon 01-22-2017 Erythrocyte distribution width Auto Ratio (RBC) 13.6 % Normal 12.0-15.4 [facility] Comment on above: Performed By: #### 1 764173 ####[facility] [address] [place] [address] Erythrocytes (RBC) 0.00 10*3/uL Normal [facility] Comment on above: Performed By: #### 1 000654 ####[address] [address] Erythrocytes (RBC) 3.84 10*6/uL Low 3.85-5.10 [facility] Comment on above: Performed By: #### 1 165513 ####[address] [address] Erythrocytes (RBC) 0.0 /100{WBCs} Normal [facility] Comment on above: Performed By: #### 1 969543 ####[address] [address] Hematocrit (HCT) 34.0 % Low 36.5-46.6 [facility] Comment on above: Performed By: #### 1 435077 ####[address] [address] Hemoglobin mass conc (Bld) 11.4 g/dL Low 11.8-15.3 [facility] Comment on above: Performed By: #### 1 040780 ####[address] [address] MCH 29.7 pg Normal 27.5-33.0 [facility] Comment on above: Performed By: #### 1 829328 ####[address] [address] MCHC mass conc (RBC) 33.5 g/dL Normal 30.1-35.0 [facility] Comment on above: Performed By: #### 1 382649 ####[facility] [address] [place] [address] MCV 88.5 fL Normal 85.4-100.0 [facility] Comment on above: Performed By: #### 1 496246 ####[facility] [address] [place] [address] Platelet mean volume (PMV) 9.9 fL Normal 9.9-12.1 [facility] Comment on above: Performed By: #### 1 322416 ####[facility] [address] [place] [address] Platelets 234 10*3/uL Normal 155-404 [facility] Comment on above: Performed By: #### 1 492336 ####[facility] [address] [place] [address] RDW SD 43.9 fL Normal 39.3-48.6 [facility] Comment on above: Performed By: #### 1 832667 ####[facility] [address]tt[address] [place] [address] WBC (Leukocytes) 9.1 10*3/uL Normal 4.4-9.9 [facility] Comment on above: Performed By: #### 1 098721 ####[facility] [address] [place] [address] Glucose, 1 H Post 50 Gram (P regnancy Screen)on 01-22-2017 Glucose mass conc 158 mg/dL High 55-140 [facility] Comment on above: Performed By: #### 1 154390 ####[facility] [address] [place] [address] PREG COMPL ECHO W/O DYLAN MARCO ANTONIO Josi 12-17-2016 PREG COMPL ECHO W/O DYLAN SURVEY DATE OF EXAM: Dec 17 2016 4:24PMCLINICAL HISTORY/ Name: KESHA PINKUDY:PREG COMPL ECHO W/O DYLAN SURVEY; 12/17/2016 4:24 pmINDICATION:. Repeat anatomy of the spine, kidneys, and umbilical cord.COMPARISON:12/04/19 17ACCESSION NUMBER(S):[id number] RING CLINICIAN:TIFFANI KHALILNIQUE:Multipl e sonographic images of [...] visualized.Anterior placenta without evidence of previa. Normal [facility] APPENDIX ECHOon 12-09-2016 APPENDIX ECHO DATE OF EXAM: Dec 09 2016 6:11PMCLINICAL HISTORY/ Name: BUSTER PINK:APPENDIX ECHO; 12/09/2016 6:11 pmINDICATION:Patient is 20 weeks with right lower quadrant pain. Rule out appendicitis.COMPARISON: None. [facility] CLINICIAN:ROBERT HUTTON:Limited ultrasound images of the right [...] for better characterization if clinically indicated. Normal [facility] Comprehensive Metabolic Pane dale 12-09-2016 Alanine aminotransferase (ALT) 12 U/L Normal 7-45 [facility] Comment on above: Performed By: #### 1 [id number] ####[facility] [address] [place] [address] Albumin 3.5 g/dL Normal 3.4-5.0 [facility] Comment on above: Performed By: #### 1 603591 ####[facility] [address] [place] [address] Albumin/Globulin Ratio 1.1 {ratio} Normal 0.9-2.4 [facility] Comment on above: Performed By: #### 1 469966 ####[facility] [address] [place] [address] Alkaline phosphatase (ALP) 63 U/L Normal 45-117 [facility] Comment on above: Performed By: #### 1 894250 ####[facility] [address] [place] [address] Anion gap 12 mmol/L Normal 10-20 [facility] Comment on above: Performed By: #### 1 215971 ####[facility] [address] [facility] [place] [address] Aspartate aminotransferase (AST) 12 U/L Low 13-39 [facility] Comment on above: Performed By: #### 1 371525 ####[facility] [address] [place] [address] Bicarbonate (HCO3) 22 mmol/L Normal 21-32 [facility] Comment on above: Performed By: #### 1 414194 ####[facility] [address]xv[address] [place] [address] Bilirubin (total) 0.3 mg/dL Normal 0.0-1.2 [facility] Comment on above: Performed By: #### 1 239217 ####[facility] [address] [place] [address] BUN/Creatinine Ratio 11 mg/mg Normal 5-25 [facility] Comment on above: Performed By: #### 1 584061 ####[facility] S[address] [place] [address] Calcium 8.9 mg/dL Normal 8.6-10.3 [facility] Comment on above: Performed By: #### 1 447565 ####[facility] [address] [place] [address] Chloride 105 mmol/L Normal 98-107 [facility] Comment on above: Performed By: #### 1 470874 ####[facility] [address] [facility] [place] [address] Creatinine 0.55 mg/dL Normal 0.50-1.05 [facility] Comment on above: Performed By: #### 1 347315 ####[facility] [address] [place] [address] eGFR (MDRD) mL/min/{1.73_m2} Normal [facility] Comment on above: Result Comment: Inte rpretation for Chronic Kidney Disease:Stages 1&2 >60 Healthy or potential kidney damage.Mild decrease of GFR.Stage 3 30-59 Moderate decrease of GFR.Stage 4 15-29 Severe decrease of GFR.Stage 5 <15 Kidney failure or on dialysis. Performed By: #### 1 541355 ####[facility] [address] [place] [address] Glucose mass conc 87 mg/dL Normal 70-100 [facility] Comment on above: Performed By: #### 1 836290 ####[facility] [address] [place] [address] Potassium molar conc 3.7 mmol/L Normal 3.5-5.1 [facility] Comment on above: Performed By: #### 1 214504 ####[facility] [address] [place] [address] Protein 6.6 g/dL Normal 6.4-8.2 [facility] Comment on above: Performed By: #### 1 863601 ####[facility] [address] [place] [address] Sodium 135 mmol/L Low 136-145 [facility] Comment on above: Performed By: #### 1 819503 ####[facility] [address] [place] [address] Urea nitrogen 6 mg/dL Normal 6-23 [facility] Comment on above: Performed By: #### 1 326162 ####[facility] [address] [place] [address] Culture Urineon 12-09-2016 Culture Urine STATUS: FINAL REPORT SITE: Same as Source SOURCE: Urine Culture Urine: 1,000-10,000 CFU/ml of Mixed Gram positives, No further work-up. Normal [facility] Comment on above: Performed By: #### 1 305180 ####[facility] [address] [place] [address] MRI ABDOMEN W/O CONTRASTon 0 12-09-2016 MRI ABDOMEN W/O CONTRAST DATE OF EXAM: Dec 09 2016 9:39PMCLINICAL HISTORY/ Name: SUSANNAH PINKY:MRI ABDOMEN W/O CONTRAST; 12/09/2016 9:39 pmINDICATION:Abdominal pain.COMPARISON:None.ACC ESSION NUMBER(S):[id number] RING CLINICIAN:HARRY GOMEZ:Limited field of view multiplanar [...] WAS ABLE TO EVALUATE THE CASE Normal [facility] Urinalysison 12-09-2016 Ascorbic Acid Negative Normal Negative [facility] Comment on above: Performed By: #### 1 441324 ####[facility] [address] [place] [address] Automated Urine Microscopy Performed Normal [facility] Comment on above: Performed By: #### 1 792200 ####[facility] [address] [place] [address] Bilirubin Ql (U) Negative Normal Negative [facility] Comment on above: Performed By: #### 1 672501 ####[facility] [address] [place] [address] Blood Negative Normal Negative [facility] Comment on above: Performed By: #### 1 697200 ####[facility] [address] [place] [address] Erythrocytes (RBC) 2 /[HPF] Normal 0-3 [facility] Comment on above: Performed By: #### 1 814510 ####[facility] [address] [place] [address] Glucose mass conc Negative Normal Negative [facility] Comment on above: Performed By: #### 1 349994 ####[facility] [address] [place] [address] Protein Negative Normal Negative [facility] Comment on above: Performed By: #### 1 257580 ####[facility] [address] [place] [address] Urine, appearance Hazy Normal Clear [facility] Comment on above: Performed By: #### 1 293286 ####[facility] [address] [place] [address] Urine, bacteria in sediment Few Normal None [facility] Comment on above: Performed By: #### 1 182322 ####[facility] [address] [place] [address] Urine, color Yellow Normal [facility] Comment on above: Performed By: #### 1 644109 ####[facility] [address] [place] [address] Urine, ketones presence Negative Normal Negative [facility] Comment on above: Performed By: #### 1 459882 ####[facility] [address] [place] [address] Urine, nitrite presence Negative Normal Negative [facility] Comment on above: Performed By: #### 1 007974 ####[facility] [address] [place] [address] Urine, pH 7.0 [pH] Normal 5.0-9.0 [facility] Comment on above: Performed By: #### 1 483242 ####[facility] [address] [place] [address] Urine, specific gravity 1.009 Normal 1.003-1.035 [facility] Comment on above: Performed By: #### 1 096783 ####[facility] [address] [place] [address] Urine, squamous cells in sediment 5 /[HPF] Normal 0-5 [facility] Comment on above: Performed By: #### 1 061577 ####[facility] [address] [place] [address] Urine, urobilinogen <2.0 Normal Negative [facility] Comment on above: Performed By: #### 1 994237 ####[facility] [address] [place] [address] WBC (Leukocytes) 1 /[HPF] Normal 0-5 [facility] Comment on above: Performed By: #### 1 860720 ####[facility] [address] [place] [address] WBC (Leukocytes) Moderate Abnormal Negative [facility] Comment on above: Performed By: #### 1 342082 ####[facility] [address] [place] [address] PREG COMPL ECHO W/ANATOMICAL SURon 12-03-2016 PREG [...] spinal column, kidneys and cord insertion. Normal [facility] Glucose Fasting Toleranceon 11-05-2016 Glucose Fasting Tolerance 88 mg/dL Normal 70-100 [facility] Comment on above: Result Comment: Non- <1 month 40-80 mg/dL>1 month 70- 100 mg/dL<105 mg/dL Performed By: #### 1 969078 ####[facility] [address] [place] [address] Glucose Tolerance 3hr Pregna ncyon 11-05-2016 Glucose mass conc 170 mg/dL Normal <190 [facility] Comment on above: Performed By: #### 1 950964 ####[facility] Czc[address] [place] [address] Glucose mass conc 46 mg/dL Normal <145 [facility] Comment on above: Performed By: #### 1 234007 ####[facility] [address] [place] [address] Glucose mass conc 146 mg/dL Normal <165 [facility] Comment on above: Performed By: #### 1 428530 ####[facility] [address] [place] [address] Glucose, WB POCon 11-05-2016 Glucose mass conc 93 mg/dL Normal 70-100 [facility] Comment on above: Performed By: #### 1 391482 ####[facility] [address] [place] [address] CBC With Differentialon Basophils Auto #/vol (Bld) 0.02 10*3/uL Normal 0.01-0.07 [facility] Comment on above: Performed By: #### 2 654939 ####[facility] [address] [place] [address] Basophils/100 WBC Auto (Bld) 0.3 % Normal 0.1-1.2 [facility] Comment on above: Performed By: #### 2 144025 ####[facility] [address] [place] [address] Eosinophils 0.09 10*3/uL Normal 0.04-0.50 [facility] Comment on above: Performed By: #### 2 840656 ####[facility] [address] [place] [address] Eosinophils/100 leukocytes 1.2 % Normal 0.0-8.1 [facility] Comment on above: Performed By: #### 2 075618 ####[facility] E[address] [place] [address] Erythrocyte distribution width Auto Ratio (RBC) 12.6 % Normal 12.0-15.4 [facility] Comment on above: Performed By: #### 2 637847 ####[facility] [address] [place] [address] Erythrocytes (RBC) 0.00 10*3/uL Normal [facility] Comment on above: Performed By: #### 2 543300 ####[facility] [address] [place] [address] Erythrocytes (RBC) 4.20 10*6/uL Normal 3.85-5.10 [facility] Comment on above: Performed By: #### 2 071032 ####[facility] [address] [place] [address] Erythrocytes (RBC) 0.0 /100{WBCs} Normal [facility] Comment on above: Performed By: #### 2 479162 ####[facility] [address] [place] [address] Hematocrit (HCT) 37.6 % Normal 36.5-46.6 [facility] Comment on above: Performed By: #### 2 [id number] ####[facility] [address] [place] [address] Hemoglobin mass conc (Bld) 12.4 g/dL Normal 11.8-15.3 [facility] Comment on above: Performed By: #### 2 [id number] ####[facility] [address]ov[address] [place] [address] Imm Grans Absolute 0.05 10*3/uL Normal 0.00-0.21 [facility] Comment on above: Performed By: #### 2 [id number] ####[facility] [address] [place] [address] Immature granulocytes #/vol (Bld) 0.7 % Normal [facility] Comment on above: Performed By: #### 2 [id number] ####[facility] [address] [place] [address] Lymphocytes 1.58 10*3/uL Normal 0.40-2.84 [facility] Comment on above: Performed By: #### 2 [id number] ####[facility] Esx[address] [place] [address] Lymphocytes/100 leukocytes 21.5 % Normal 15.7-50.5 [facility] Comment on above: Performed By: #### 2 [id number] ####[facility] Tep[address] [place] [address] MCH 29.5 pg Normal 27.5-33.0 [facility] Comment on above: Performed By: #### 2 [id number] ####[facility] [address] [place] [address] MCHC mass conc (RBC) 33.0 g/dL Normal 30.1-35.0 [facility] Comment on above: Performed By: #### 2 [id number] ####[facility] [address] [facility] [place] [address] MCV 89.5 fL Normal 85.4-100.0 [facility] Comment on above: Performed By: #### 2 [id number] ####[facility] Cyt[address] [facility] [place] [address] Monocytes 0.32 10*3/uL Normal 0.25-0.83 [facility] Comment on above: Performed By: #### 2 [id number] ####[facility] [address] [facility] [place] [address] Monocytes/100 leukocytes 4.4 % Low 4.8-12.7 [facility] Comment on above: Performed By: #### 2 [id number] ####[facility] Cws[address] [facility] [place] [address] Neutrophils 5.29 10*3/uL Normal 1.95-6.85 [facility] Comment on above: Performed By: #### 2 [id number] ####[facility] W[address] [facility] [place] [address] Neutrophils/100 leukocytes 71.9 % Normal 36.8-73.2 [facility] Comment on above: Performed By: #### 2 [id number] ####[facility] Njx[address] [facility] [place] [address] Platelet mean volume (PMV) 9.6 fL Low 9.9-12.1 [facility] Comment on above: Performed By: #### 2 [id number] ####[facility] Get[address] [facility] [place] [address] Platelets 230 10*3/uL Normal 155-404 [facility] Comment on above: Performed By: #### 2 [id number] ####[facility] F[address] [facility] [place] [address] RDW SD 40.9 fL Normal 39.3-48.6 [facility] Comment on above: Performed By: #### 2 [id number] ####[facility] X[address] [facility] [place] [address] WBC (Leukocytes) 7.4 10*3/uL Normal 4.4-9.9 [facility] Comment on above: Performed By: #### 2 [id number] ####[facility] [address] [place] [address] Glucose, 1 H Post 50 Gram (P regnancy Screen)on 11-01-2016 Glucose mass conc 158 mg/dL High 55-140 [facility] Comment on above: Performed By: #### 1 [id number] ####[facility] [address] [place] [address] HIV-1,2 Combo Ag/Ab, W/Rfx t o Confirmon 11-01-2016 HIV 1-2 Combo Ag/Ab NON REACTIVE Normal NONREACTIVE [facility] Comment on above: Result Comment: HIV Ag/Ab screen is performed using the Siemens [employer] HIV Ag/Ab Combo assay which detects the presenceof HIV p24 antigen as well as antibodies to HIV-1(Group M and O) and HIV-2. Hepatitis B Surface Antigeno n 11-01-2016 Hepatitis B Surface Antigen NONREACTIVE Normal NONREACTIVE [facility] Comment on above: Result Comment: Blank ents receiving more than 5 mg/day of biotin may have interfin test results. A sample should be taken no sooner than eightafter previous dose. Contact [phone] for additional infor Rubella Ab, IgGon 11-01-2016 Rubella Ab, IgG 114 IU/ML Normal [facility] Comment on above: Result Comment: REF VALUESNON-IMMUNE: < 5EQUIVOCAL: 5-9IMMUNE: >=10 Syphilis IgG w/Rflx toTiter, TP-PAon 11-01-2016 Syphilis IgG w/Rflx toTiter,TP-PA NON REACTIVE Normal NONREACTIVE [facility] Comment on above: Result Comment: Blank ents receiving more than 5 mg/day of biotin may have interfin test results. A sample should be taken no sooner than eightafter previous dose. Contact [phone] for additional infor Type and Screenon 11-01-2016 Antibody Screen Negative Normal [facility] Comment on above: Performed By: #### T S3 ####[facility] [address] [place] [address] Group and Rh Positive Normal [facility] Comment on above: Performed By: #### T S3 ####[facility] [address] [place] [address] VZV Ab, IgGon 11-01-2016 VZV Ab, IgG Positive Normal NEGATIVE [facility] Comment on above: Result Comment: INTE RPRETATIVE [...] 10:57-0400 Body height 157.5 cm Merry Reese APRN-POT PRESS OPERATOR Work Phone: [facility] 10-09-2024 10:57-0400 Body mass index (BMI) [Ratio] 37.71 kg/m2 Merry Reese APRN-POT PRESS OPERATOR Work Phone: [facility] 10-09-2024 10:57-0400 Body weight 93.53 kg Merry Reese APRN-POT PRESS OPERATOR Work Phone: [facility] 10-09-2024 10:57-0400 Diastolic blood pressure 101 mm[Hg] Merry Reese APRN-POT PRESS OPERATOR Work Phone: [facility] 10-09-2024 10:57-0400 Heart rate 80 /min Merry Reese APRN-POT PRESS OPERATOR Work Phone: [facility] 10-09-2024 10:57-0400 Systolic blood pressure 141 mm[Hg] Merry Reese APRN-POT PRESS OPERATOR Work Phone: [facility] 09-05-2024 12:49-0400 Body height 157.5 cm Merry Reese TELEGRAPH OFFICE TELEPHONE CLERK-POT PRESS OPERATOR Work Phone: [facility] 09-05-2024 12:49-0400 Body mass index (BMI) [Ratio] 37.49 kg/m2 Merry Reese TELEGRAPH OFFICE TELEPHONE CLERK-POT PRESS OPERATOR Work Phone: [facility] 09-05-2024 12:49-0400 Body weight 92.99 kg Merry Reese TELEGRAPH OFFICE TELEPHONE CLERK-POT PRESS OPERATOR Work Phone: [facility] 09-05-2024 12:49-0400 Diastolic blood pressure 86 mm[Hg] Merry Reese TELEGRAPH OFFICE TELEPHONE CLERK-POT PRESS OPERATOR Work Phone: [facility] 09-05-2024 12:49-0400 Heart rate 83 /min Merry Reese TELEGRAPH OFFICE TELEPHONE CLERK-POT PRESS OPERATOR Work Phone: [facility] 09-05-2024 12:49-0400 Systolic blood pressure 138 mm[Hg] Merry Reese TELEGRAPH OFFICE TELEPHONE CLERK-POT PRESS OPERATOR Work Phone: [facility] 08-10-2022 13:33-0400 Body height 152.4 cm Tiffani [...] 21:45-0500 Diastolic blood pressure 56 mm[Hg] Marcie Montgomeryoz [facility] 03-25-2021 21:45-0500 Heart rate 84 /min [facility] 03-25-2021 21:45-0500 Respiratory rate 18 /min [facility] 03-25-2021 21:45-0500 SaO2% (BldA) [Mass fraction] 94 % [facility] 03-25-2021 21:45-0500 Systolic blood pressure 112 mm[Hg] [facility] 03-25-2021 15:58-0500 Body height 157.4 cm [facility] 03-25-2021 15:58-0500 Body temperature 99.5 [degF] [facility] 03-25-2021 15:58-0500 Body weight 92.9 kg [facility] Encounters Encounter Date Encounter Type Care Provider Facility Start: 10-10-2024 ambulatory Merry Reese Facility:[facility] Start: 10-09-2024 End: 10-09-2024 Office outpatient visit 25 minutes Merry Reese TELEGRAPH OFFICE TELEPHONE CLERK-POT PRESS OPERATOR Work Phone: [facility] Comment on above: IFG (impaired fastin g glucose) (Primary Dx); Mixed hyperlipidemia; Primary hypertension; Class 2 severe obesity due to excess calories with serious comorbidity and body mass index (BMI) of 37.0 to 37.9 in adult Start: 10-03-2024 ambulatory Merry Reese Facility:[facility] Start: 10-03-2024 Non-patient / Non-visit Dr. Nic lucio MD -[facility] Start: 10-03-2024 End: 10-03-2024 Patient encounter procedure Merry Reese PULVERIZER-C -Pulmonary Services/Neurology Work Phone: Start: 10-03-2024 End: 10-03-2024 ambulatory Merry Reese Facility:[facility] Start: 09-19-2024 End: 09-19-2024 Subsequent hospital visit by physician Daniel X-Ray Fluoro 1 [facility] Comment on above: Numbness and tinglin g Multiple thyroid nod ules Start: 09-19-2024 End: 09-19-2024 ambulatory MERRY Guevara [facility] Start: 09-07-2024 End: 09-07-2024 Subsequent hospital visit by physician Daniel Ultrasound 1 [facility] Comment on above: Multiple thyroid nod ules Start: 09-07-2024 End: 09-07-2024 ambulatory MERRY Guevara [facility] Start: 09-05-2024 End: 09-05-2024 ambulatory [facility] Ismael [facility] Ambulatory Start: 09-05-2024 End: 09-05-2024 Office outpatient new 45 minutes Merry Reese TELEGRAPH OFFICE TELEPHONE CLERK-POT PRESS OPERATOR Work Phone: [facility] Comment on above: Multiple thyroid [...] MD Facility:[facility] Start: 08-16-2023 End: 08-16-2023 ambulatory TIFFNAI RODRIGUEZ MD Facility:[facility] Start: 08-16-2023 End: 08-16-2023 ambulatory TIFFANI RODRIGUEZ MD Facility:[id number] Start: 11-22-2022 MyChart Refill Tiffani Rodriguez MD Work Phone: [facility] Comment on above: Medication Refill Ap proved Start: 08-10-2022 End: 08-10-2022 Manual pelvic examination Tiffani Rodriguez MD Work Phone: [facility] Start: 08-10-2022 End: 08-10-2022 Patient encounter procedure Tiffani Rodriguez MD Work Phone: [email or web address] Comment on above: Normal pelvic exam ( Primary Dx); Menorrhagia with regular cycle Start: 05-17-2022 Telephone encounter Tiffani mayes MD Work Phone: [email or web address] Comment on above: Medication Follow-up Start: 04-21-2022 AUDIT Referring Prov ider Unknown GC-Dtrlvhvsiemwux-Kkmc field Work Phone: Start: 04-20-2022 Chart Update Referring Prov ider Unknown WV-Cgaouvfmyfplbs-Omyl field Work Phone: Start: 08-03-2021 End: 08-03-2021 Manual pelvic examination Tiffani Rodriguez MD Work Phone: [facility] Start: 08-03-2021 End: 08-03-2021 Patient encounter procedure Tiffani Rodriguez MD Work Phone: [facility] Comment on above: Normal pelvic exam ( Primary Dx) Start: 03-25-2021 AUDIT Referring Prov ider Unknown ZF-Hrpcbofmvryphe-Tiue field Work Phone: Start: 03-25-2021 End: 03-25-2021 Emergency department patient visit Marcie Dueñas [facility] Emergency [facility]on [facility] Start: 02-26-2020 End: 02-29-2020 Patient encounter procedure KSENIA Chirinos [facility] Start: 02-26-2020 End: 02-28-2020 Subsequent hospital visit by physician Laguerre Ultrasound Room 1 [facility] Ultrasound Comment on above: Esophageal dysphagia Start: 04-25-2017 End: 04-26-2017 Evaluation and management of inpatient TIFFANI RODRIGUEZ Facility:[facility] Start: 03-22-2017 Ambulatory TIFFANI BACHUWA Facility:[facility] Start: 03-22-2017 Ambulatory Facility:[id number] Start: 01-28-2017 Ambulatory TIFFANI BACHUWA Facility:[facility] Start: 01-22-2017 Ambulatory TIFFANI BACHUWA Facility:[facility] Start: 12-17-2016 Ambulatory TIFFANI BACHUWA Facility:[facility] Start: 12-17-2016 Ambulatory Facility:[id number] Start: 12-09-2016 End: 12-10-2016 Ambulatory TIFFANI BACHUWA Facility:[facility] Start: 12-09-2016 Ambulatory Facility:[id number] Start: 12-03-2016 Ambulatory TIFFANI BACHUWA Facility:[facility] Start: 12-03-2016 Ambulatory Facility:9 [id number] Start: 11-05-2016 Ambulatory TIFFANI BACHUWA Facility:[facility] Start: 11-01-2016 Ambulatory TIFFANI BACHUWA Facility:[facility] Procedures Date Procedure Procedure Detail Performing Clinician Start: 09-19-2024 Biopsy thyroid percutaneous core needle Merry Reese APRN-POT PRESS OPERATOR Work Phone: Start: 09-19-2024 Lipid 1996 panel - S dionne or Plasma Merry Reese APRN-POT PRESS OPERATOR Work Phone: Start: 02-26-2020 soft tissue head & neck real time imge docm Ksenia Kingsley Work Phone: Start: 08-14-2014 Microscopic observat ion [Identifier] in Cervix by Cyto stain Merry Reese APRN-POT PRESS OPERATOR Work Phone: Plan of Treatment Date Care Activity Detail Author Start: 2038 Zoster Vaccines (1 of 2) Zoste r Vaccines (1 of 2) [facility] Start: 09-19-2029 Lipid panel Lipid Panel [facility] Start: 09-20-2027 Diabetes mellitus screening Diabetes Screening [facility] Start: 08-11-2027 HPV TESTING [facility] Start: 08-11-2027 PAP TESTING [facility] Start: 08-03-2026 PAP TESTING [facility] Start: 10-09-2025 End: 04-11-2026 CBC W Auto Differential panel - Blood CBC and Auto Differential Lab Routine IFG (impaired fasting glucose) Expected: 10/09/2025 (Approximate), Expires: 04/11/2026 [facility] Work Phone: Comment on above: Expected: 10/09/2025 (Approximate), Expires: 04/11/2026 Start: 10-09-2025 End: 04-11-2026 Comprehensive metabolic 2000 panel - Serum or Plasma Comprehensive Metabolic Panel Lab Routine IFG (impaired fasting glucose) Expected: 10/09/2025 (Approximate), Expires: 04/11/2026 [facility] [[email or web address]] Service Area Work Phone: Comment on above: Expected: 10/09/2025 (Approximate), Expires: 04/11/2026 Start: 10-09-2025 End: 04-11-2026 Hemoglobin A1c/Hemoglobin.total in Blood Hemoglobin A1C Lab Routine IFG (impaired fasting glucose) Expected: 10/09/2025 (Approximate), Expires: 04/11/2026 [facility] Work Phone: Comment on above: Expected: 10/09/2025 (Approximate), Expires: 04/11/2026 Start: 10-09-2025 End: 04-11-2026 Lipid 1996 panel - Serum or Plasma Lipid Panel Lab Routine Mixed hyperlipidemia Expected: 10/09/2025 (Approximate), Expires: 04/11/2026 [facility] Work Phone: Comment on above: Expected: 10/09/2025 (Approximate), Expires: 04/11/2026 Start: 10-09-2025 End: 04-11-2026 TSH with reflex to Free T4 if abnormal TSH with reflex to Free T4 if abnormal Lab Routine Mixed hyperlipidemia Expected: 10/09/2025 (Approximate), Expires: 04/11/2026 [facility] Work Phone: Comment on above: Expected: 10/09/2025 (Approximate), Expires: 04/11/2026 Start: 10-09-2025 End: 10-09-2025 Patient encounter procedure 10/09/2025 10:40 AM EDT Office Visit [facility] [address] [place] [phone] Merry Reese, TELEGRAPH OFFICE TELEPHONE CLERK-POT PRESS OPERATOR [address] [place] [address] [facility] Start: 06-30-2025 PAP TESTING [facility] Start: 06-18-2025 DTaP/Tdap/Td Vaccine s (2 - Td or Tdap) DTaP/Tdap/Td Vaccines (2 - Td or Tdap) [facility] Start: 02-19-2025 End: 02-19-2025 Patient encounter procedure 02/19/2025 9:45 AM EST Office Visit [facility][note 3] [address] [place] [phone] Edmond Camp MD [address] [place] [id number] [facility][note 3] Start: 11-26-2024 Influenza vaccination [facility] Start: 11-07-2024 End: 11-07-2024 Patient encounter procedure 11/07/2024 8:40 AM EDT Office Visit [facility] [address] [phone] Merry Reese, TELEGRAPH OFFICE TELEPHONE CLERK-POT PRESS OPERATOR [address] [place] [address] [facility] Start: 09-07-2024 End: 09-07-2024 Patient encounter procedure 09/07/2024 11:45 AM EDT Appointment [facility] [address] [place] [phone] [facility] Start: 09-05-2024 End: 03-07-2026 CBC W Auto Differential panel - Blood CBC and Auto Differential Lab Routine Multiple thyroid nodules Expected: 09/05/2024 (Approximate), Expires: 03/07/2026 [facility] Work Phone: Comment on above: Expected: 09/05/2024 (Approximate), Expires: 03/07/2026 Start: 09-05-2024 End: 09-05-2025 Comprehensive metabolic 2000 panel - Serum or Plasma Comprehensive Metabolic Panel Lab Routine Multiple thyroid nodules Expected: 09/05/2024 (Approximate), Expires: 09/05/2025 [facility] Work Phone: Comment on above: Expected: 09/05/2024 (Approximate), Expires: 09/05/2025 Start: 09-05-2024 End: 09-05-2025 EMG & nerve conduction EMG & nerve conduction Neurology Routine Numbness and tingling Expected: 09/05/2024 (Approximate), Expires: 09/05/2025 [facility] [[email or web address]] Service Area Work Phone: Comment on above: Expected: 09/05/2024 (Approximate), Expires: 09/05/2025 Start: 09-05-2024 End: 09-05-2025 Hemoglobin A1c/Hemoglobin.total in Blood Hemoglobin A1C Lab Routine IFG (impaired fasting glucose) Expected: 09/05/2024 (Approximate), Expires: 09/05/2025 [facility] Work Phone: Comment on above: Expected: 09/05/2024 (Approximate), Expires: 09/05/2025 Start: 09-05-2024 End: 09-05-2025 Lipid 1996 panel - Serum or Plasma Lipid Panel Lab Routine Lipid screening Expected: 09/05/2024 (Approximate), Expires: 09/05/2025 [facility] Work Phone: Comment on above: Expected: 09/05/2024 (Approximate), Expires: 09/05/2025 Start: 09-05-2024 End: 09-05-2025 Thyrotropin [Units/volume] in Serum or Plasma Thyroid Stimulating Hormone Lab Routine Multiple thyroid nodules Expected: 09/05/2024 (Approximate), Expires: 09/05/2025 [facility] Work Phone: Comment on above: Expected: 09/05/2024 (Approximate), Expires: 09/05/2025 Start: 09-05-2024 End: 09-05-2025 Thyroxine (T4) free [Mass/volume] in Serum or Plasma Thyroxine, Free Lab Routine Multiple thyroid nodules Expected: 09/05/2024 (Approximate), Expires: 09/05/2025 [facility] Work Phone: Comment on above: Expected: 09/05/2024 (Approximate), Expires: 09/05/2025 Start: 09-05-2024 End: 09-05-2025 Triiodothyronine (T3) Free [Mass/volume] in Serum or Plasma Triiodothyronine, Free Lab Routine Multiple thyroid nodules Expected: 09/05/2024 (Approximate), Expires: 09/05/2025 [facility] Work Phone: Comment on above: Expected: 09/05/2024 (Approximate), Expires: 09/05/2025 Start: 09-05-2024 End: 09-05-2025 US Thyroid gland US thyroid Imaging Routine Multiple thyroid nodules Expected: 09/05/2024, Expires: 09/05/2025 [facility] Work Phone: Comment on above: Expected: 09/05/2024 , Expires: 09/05/2025 Start: 09-05-2024 End: 09-05-2025 XR Cervical spine 2 or 3 Views XR cervical spine 2-3 views Imaging Routine Numbness and tingling Expected: 09/05/2024, Expires: 09/05/2025 [facility] Work Phone: Comment on above: Expected: 09/05/2024 , Expires: 09/05/2025 Start: 09-05-2024 End: 09-05-2025 XR Spine Views XR lumbar spine 6+ views including oblique flexion extension Imaging Routine Numbness and tingling Expected: 09/05/2024, Expires: 09/05/2025 [facility] Work Phone: Comment on above: Expected: 09/05/2024 , Expires: 09/05/2025 Start: 08-16-2024 Yearly Adult Physical Yearly Adult P hysical [facility] Start: 03-25-2024 Diabetes mellitus screening Diabetes Screening [facility] Start: 11-27-2023 COVID-19 Vaccine ( season) COVID-19 Vaccine ( season) [facility] Start: 11-26-2022 Influenza vaccination [facility] Start: 08-10-2022 End: 10-10-2022 CBC W Auto Differential panel - Blood CBC + DIFF Lab Routine Menorrhagia with regular cycle Expected: 08/10/2022, Expires: 10/10/2022 [facility] Work Phone: Comment on above: Expected: 08/10/2022 , Expires: 10/10/2022 Start: 08-10-2022 End: 10-10-2022 Thyrotropin [Units/volume] in Serum or Plasma TSH BLD Lab Routine Menorrhagia with regular cycle Expected: 08/10/2022, Expires: 10/10/2022 [facility] Work Phone: Comment on above: Expected: 08/10/2022 , Expires: 10/10/2022 Start: 08-10-2022 End: 10-10-2022 Thyroxine (T4) free [Mass/volume] in Serum or Plasma T4 FREE/FREE THYROX Lab Routine Menorrhagia with regular cycle Expected: 08/10/2022, Expires: 10/10/2022 [facility] Work Phone: Comment on above: Expected: 08/10/2022 [...] 25-Mar-2021 End: 27-Mar-2021 Ordered: 25-Mar-2021 Marcie Dueñas [facility] Start: 10-20-2020 COVID-19 VACCINE (3 - Booster [...] Screening for malign ant neoplasm of cervix [facility] Start: 2009 Screening for malign ant neoplasm of cervix [facility] Start: 06-18-2007 DTaP/Tdap/Td vaccine (1 - Tdap) DTaP/Tdap/Td vaccine (1 - Tdap) [place], [place] Start: 06-18-2007 Hepatitis B Vaccines (1 of 3 - 19+ 3-dose series) Hepatitis B Vaccines (1 of 3 - 19+ 3-dose series) [facility] Start: 06-18-2007 Urine microalbumin profile DTAP,TDAP,TD (1 - Tdap) [facility] Start: 2006 Diabetes mellitus screening Diabetes Screening [facility] Start: 2006 HEPATITIS C SCREENING HEPATITIS C [facility] Start: 2006 Hepatitis C screening Hepatitis C [facility] Start: 2006 HIV SCREENING HIV SCREENING [facility] Start: 06-18-2003 HIV screening HIV screen [place], [place] Start: 2001 Varicella vaccination Varicell a Vaccines (1 of 2 - 13+ 2-dose series) [facility] Start: 2000 Adult depression screening assessment DEPRESSION SCREENING [facility] Start: 1989 MMR Vaccines (1 of 1 - Standard series) MMR Vaccines (1 of 1 - Standard series) [facility] Start: 1989 Varicella vaccine (1 of 2 - 2-dose childhood series) Varicella vaccine (1 of 2 - 2-dose childhood series) [facility] [place] Start: 1988 HEPATITIS B (1 of 3 - 3-dose series) HEPATITIS B (1 of 3 - 3-dose series) [facility] Start: 1988 HIV screening HIV Screening [facility] Start: 1988 Lipid panel Lipid Panel [facility] Start: 1988 Skin Cancer Screening Skin Cancer Sc [facility] Start: 1988 Yearly Adult Physical Yearly Adult P hysical [facility] End: 09-19-2024 Non-gynecological cytology method study [facility] [[email or web address] Service Area Work Phone: Comment on above: Once (Lab) for 1 Occ urrences starting 09/19/2024 until 09/19/2024, 1 completed PAP FLUID CERVICAL SCREENING PAP FLUID CERVICAL SCREENING Lab Routine Normal pelvic exam Ordered: 08/03/2021 [facility] OF [employer] Work Phone: Comment on above: Ordered: 08/03/2021 PAP IG, RFX HPV ASCU , 16&18 (PT MUST GO TO [facility] ONLY) PAP IG, RFX HPV ASCU, 16&18 (PT MUST GO TO [facility] ONLY) Lab Routine Normal pelvic exam Ordered: 08/10/2022 CP [facility] Work Phone: Comment on above: Ordered: 08/10/2022 End: 09-07-2024 US Thyroid gland [facility] [[email or web address]] Service Area Work Phone: Comment on above: Once for 1 Occurrenc es starting 09/07/2024 until 09/07/2024 End: 09-19-2024 XR Cervical spine 2 or 3 Views [facility] [[email or web address] Service Area Work Phone: Comment on above: Once for 1 Occurrenc es starting 09/19/2024 until 09/19/2024 End: 09-19-2024 XR Spine Views [facility] [[email or web address]] Service Area Work Phone: Comment on above: Once for 1 Occurrenc es starting 09/19/2024 until 09/19/2024 [facility] Immun[facility] Immunization Date Immunization Notes Care Provider Fa cility 02-10-2021 Influenza, injectabl e, Madin Rosmery Canine Kidney, preservative free, quadrivalent Merry Reese TELEGRAPH OFFICE TELEPHONE CLERK-POT PRESS OPERATOR Work Phone: [facility] Work Phone: 02-10-2021 influenza virus vaccine, unspecified formulation Merry Reese TELEGRAPH OFFICE TELEPHONE CLERK-POT PRESS OPERATOR Work Phone: [facility] Work Phone: 02-22-2020 influenza, injectabl e, quadrivalent, preservative free [address] 01-11-2019 influenza, injectabl e, quadrivalent, contains preservative Merry Reese TELEGRAPH OFFICE TELEPHONE CLERK-POT PRESS OPERATOR Work Phone: [facility] [facility] Work Phone: 01-10-2018 influenza, injectabl e, quadrivalent, contains preservative Merry Reese TELEGRAPH OFFICE TELEPHONE CLERK-POT PRESS OPERATOR Work Phone: [facility] Work Phone: 01-11-2017 influenza virus vaccine, unspecified formulation Merry Reese TELEGRAPH OFFICE TELEPHONE CLERK-POT PRESS OPERATOR Work Phone: [facility] Work Phone: 06-19-2015 tetanus toxoid, redu sallie diphtheria toxoid, and acellular pertussis vaccine, adsorbed Merry Reese TELEGRAPH OFFICE TELEPHONE CLERK-POT PRESS OPERATOR Work Phone: [facility] Work Phone: Payers Date Payer Category Payer Self-pay 2024 Managed Care (Private) 1.2.8 [id number] 2018 Unknown 2014 Unknown [id number] 1988 Unknown [id number] 2.16.8 [id number] 1988 Unknown [id number] 2.16.8 [id number] 1988 Unknown [id number] 2.16.8 [id number] 1988 Unknown [id number] 2.16.8 [id number] 1988 Unknown [id number] 2.16.8 [id number] 1988 Unknown [id number] 2.16.8 [id number] 1988 Unknown [id number] 2.16.8 [id number] 1988 Unknown [id number] 2.16.8 [id number] 1988 Unknown [id number] 2.16. [id number] Unknown [id number] 2.16.8 [id number] Unknown [id number] 2.16.8 [id number] Unknown [id number] 2.16.8 [id number] Social History Date Type Detail Facility Start: 02-22-2020 End: 09-05-2024 Tobacco smoking status VTIS Never smoker [facility] Start: 02-22-2020 End: 09-05-2024 Tobacco use and exposure Never used [facility] Start: 02-22-2020 Alcohol intake Not Asked [facility] Start: 1990 Sex Assigned At Not on file [facility] Start: 08-26-2024 End: 09-05-2024 Exposure to SARS-CoV-2 (event) Not sure [facility] Tobacco smoking consumption unknown [facility] Start: 08-10-2022 End: 10-09-2024 Never a smoker Never a smoker [facility] field Work Phone: Start: 08-03-2021 Alcohol intake Ex-drinker (finding) [facility] Start: 08-10-2022 End: 10-09-2024 Alcohol intake Current drinker of alcohol (finding) [facility] Start: 08-10-2022 Alcohol Comment occasionally [facility] Start: 08-10-2022 End: 10-09-2024 Tobacco use panel [facility] National Score (1-10 0), lower number is lower risk 43 [facility] Start: 09-05-2024 Alcohol Comment SOCIALLY [facility] Work Phone: Start: 1990 Sex assigned at Female [facility] Start: 09-07-2024 Gender identity Identifies as female gender (finding) [facility] Work Phone: Start: 09-07-2024 Sexual orientation Heterosexual (finding) [facility] Work Phone: Functional Status Date Assessment Result Facility 10-09-2024 Patient [facility] ionnaire 2 item (PHQ-2) [Reported] [facility] Work Phone: 09-05-2024 Patient [facility] ionnaire 2 item (PHQ-2) [Reported] [facility] Work Phone: Clinical Notes 08-03-2021 to 10-09-2024 MARCELLA Mora - 10/09/2024 11:00 AM EDTPatient Jerod Escoto RN - 09/19/2024 10:52 AM EDTBtracy Escoto [...] Malignant cells derived from papillary thyroid carcinoma linux consultant: Tari Blue M.D. at 1509 EDT Slide(s) initially screened by CLAUDIA Infante at [facility] [address] [facility] [phone] By the signature on this report, the [...] Cytolyt with particles. SEE SCANNED EMG FROM [place] Study Result Narrative & Impression Interpreted By: Ismael Piña, STUDY: US GUIDED THYROID BIOPSY; 09/19/2024 11:33 am INDICATION: Signs/Symptoms:nodule. COMPARISON: 09/07/2024 ACCESSION NUMBER(S): [id number] ORDERING CLINICIAN: MERRY REESE FINDINGS: A detailed [...] Ismael Piña 09/19/2024 12:21 PM Dictation workstation: [id number] Physical Exam Constitutional: Appearance: Normal appearance. She [...] MONTH BP CHECK documented in this encounter [facility] Work Phone: 10-09-2024 Instructions MARCELLA Mora - 10/09/2024 11:00 AM EDT START LISINOPRIL 5MG. MONITOR BP AT H0ME. INCREASE TO 10 MG DAILY IN 2 WEEKS IF >140/90. FU IN 1 MONTH documented in this encounter [facility] Work Phone: 10-03-[address] [facility] 09-19-2024 Nurse Note Patient is discharged home with significant other. Dc instructions provided and reviewed without questions. Patient ambulates to lobby with slow and steady gait. [facility] 09-19-2024 Nurse Note Patient is discharged home with significant other. Dc instructions provided and reviewed without questions. Patient ambulates to lobby with slow and steady gait. documented in this encounter [facility] Work Phone: 09-05-2024 History of Present illness [...] REFERRAL AFTER TESTING documented in this encounter [facility] Work Phone: 08-10-2022 Nurse Note Pt in [...] [facility] 05-17-2022 Miscellaneous Notes Fax from [employer] questioning if pt stopped Zoloft. Spoke w/ pt she just refilled RX. documented in this encounter [facility] 08-03-2021 Note HNO ID: [id number] Author: Tiffani Rodriguez MD Service: ? Author [...] year. 6) Tiffani Rodriguez MD MS FACOG [facility] 08-03-2021 Nurse Note Pt in for annual. [...] 37.9 in adult documented in this encounter [facility] Work Phone: Evaluation note* Diagnosis Multiple thyroid nodules Nontoxic multinodular goiter documented in this encounter [facility] Work Phone: Evaluation note* Diagnosis Numbness and tingling Disturbance of skin sensation documented in this encounter [facility] Work Phone: Evaluation note* Diagnosis Multiple thyroid nodules Nontoxic multinodular goiter documented in this encounter [facility] Work Phone: Evaluation noteNo assessment information available [facility] Work Phone: Evaluation note* Diagnosis IFG (impaired fasting glucose)- Primary Mixed hyperlipidemia Primary hypertension Unspecified essential hypertension Class 2 severe obesity due to excess calories with serious comorbidity and body mass index (BMI) of 37.0 to 37.9 in adult documented in this encounter [facility] Work Phone: Revgus for referral (narrative)No reason for referral information [facility] Work Phone: Reason for visit Narrative* Imaging (Routine) - Authorized Specialty Diagnoses / Procedures Referred By Contac t Referred To Contact Radiology Diagnoses Multiple thyroid nodules Procedures US thyroid Merry Reese, TELEGRAPH OFFICE TELEPHONE CLERK-POT PRESS OPERATOR [address] [place] [address] Phone: tel: fax: Referral ID Status Reason Start Date Expiration Date Visits Requested Visits Authorized [id number] Authorized Perform Procedure 09/05/2024 09/05/2025 1 1 [facility] Work Phone: Reason for visit Narrative* Imaging (Routine) - Authorized Specialty Diagnoses / Procedures Referred By Contac t Referred To Contact Radiology Diagnoses Numbness and tingling Procedures XR cervical spine 2-3 views Merry Reese, TELEGRAPH OFFICE TELEPHONE CLERK-POT PRESS OPERATOR [address] [place] [address] Phone: tel: fax: Referral ID Status Reason Start Date Expiration Date Visits Requested Visits Authorized [id number] Authorized Perform Procedure 09/05/2024 09/05/2025 1 1 [facility] Work Phone: Reobal for visit Narrative* Imaging (Routine) - Authorized Specialty Diagnoses / Procedures Referred By Contac t Referred To Contact Radiology Diagnoses Numbness and tingling Procedures XR lumbar spine 6+ views including oblique flexion extension Merry Reese, TELEGRAPH OFFICE TELEPHONE CLERK-POT PRESS OPERATOR [address] [place] [address] Phone: tel: fax: Referral ID Status Reason Start Date Expiration Date Visits Requested Visits Authorized [id number] Authorized Perform Procedure 09/05/2024 09/05/2025 1 1 [facility] Work Phone: Reason for visit Narrative* Imaging (Routine) - Authorized Specialty Diagnoses / Procedures Referred By Sheri kaur Referred To Contact Radiology Diagnoses Multiple thyroid nodules Procedures US guided thyroid biopsy Merry Reese, TELEGRAPH OFFICE TELEPHONE CLERK-POT PRESS OPERATOR [address] [place] [address] Phone: tel: fax: Referral ID Status Reason Start Date Expiration Date Visits Requested Visits Authorized [id number] Authorized Perform Procedure 09/12/2024 09/12/2025 1 1 [facility] Work Phone: Summary Purpose Family History No [...] Documents on File Type Date Recorded Patient Surgical Technologist Expl anation ACP-Advance Directive ACP-Power of Sales Representative Door To Door Reason for Referral Status Reason Specialty Diagnoses / Procedures Referre d By Contact Referred To Contact Closed Radiology Diagnoses Esophageal dysphagia Procedures US HEAD NECK SOFT TISSUE THYROID Ksenia Kingsley PA [address] [place] [address] Assessments Diagnosis Esophageal dysphagia Dysphagia, pharyngoesophageal phase Chief Complaint and Reason for Visit Chief Complaint Admit Date NUMBNESS AND TINGLING TO BLE October 03 7:09am NUMBNESS AND TINGLING TO BLE October 03 3:28pm Additional Source Comments INFORMATION SOURCE (unrecogn ized section and content) DATE CREATED AUTHOR 09/19/2017 [facility] DATE CREATED AUTHOR AUTHOR'S ORGANIZ ATION 09/20/2017 [facility] DATE CREATED AUTHOR AUTHOR'S ORGANIZ ATION 02/29/2020 [facility] DATE CREATED AUTHOR AUTHOR'S ORGANIZ ATION 07/24/2020 [facility] DATE CREATED AUTHOR AUTHOR'S ORGANIZ ATION 03/26/2021 [facility] DATE CREATED AUTHOR AUTHOR'S ORGANIZ ATION 03/30/2021 [facility] DATE CREATED AUTHOR AUTHOR'S ORGANIZ ATION 08/04/2021 [facility] DATE CREATED AUTHOR AUTHOR'S ORGANIZ ATION 09/19/2021 [facility] DATE CREATED AUTHOR AUTHOR'S ORGANIZ ATION 09/17/2023 [facility] DATE CREATED AUTHOR AUTHOR'S ORGANIZ ATION 09/21/2024 [facility] DATE CREATED AUTHOR AUTHOR'S ORGANIZ ATION 09/21/2024 [facility] DATE CREATED AUTHOR AUTHOR'S ORGANIZ ATION 09/22/2024 [facility] DATE CREATED AUTHOR AUTHOR'S ORGANIZ ATION 10/07/2024 [facility] Reason for Visit (unrecogniz ed section and content) Status Reason Specialty Diagnoses / Procedures Referre d By Contact Referred To Contact Closed Radiology Diagnoses Esophageal dysphagia Procedures US HEAD NECK SOFT TISSUE THYROID Ksenia Kingsley, DARRYL [address] [place] [address] Reason Comments Well Woman Reason Comments Medication [...] Care Teams (unrecognized sec tion and content) Supervisor Long Goods Relationship Specialty Start Date End Date Merry Reese, TELEGRAPH OFFICE TELEPHONE CLERK-POT PRESS OPERATOR [address] [place] [address] PCP - General Family Medicine 09/05/24 Supervisor Long Goods Relationship Specialty Start Date End Date Merry Reese, TELEGRAPH OFFICE TELEPHONE CLERK-POT PRESS OPERATOR [address] [place] [address] PCP - General [facility] Medicine 09/05/24 Supervisor Long Goods Relationship Specialty Start Date End Date Merry Reese, TELEGRAPH OFFICE TELEPHONE CLERK-POT PRESS OPERATOR [address] [facility] [address] PCP - [facility] Medicine 09/05/24 Supervisor Long Goods Relationship Specialty Start Date End Date ReeseMerry whittaker, TELEGRAPH OFFICE TELEPHONE CLERK-POT PRESS OPERATOR [address] [place] [id number] PCP - General [facility] Medicine 09/05/24 Team Status: Active Member Role/Relationship Status Dates Merry Reese PULVERIZER-C Primary Care Provider Active Team Status: Inactive Member Role/Relationship Status Dates Merry Reese PULVERIZER-C Primary Care Provider Active Start: October 03, 2024 End: October 03, 2024 Merry Reese NP-C Attending Provider Active St art: October 03, 2024 End: October 03, 2024 Merry Reese NP-Parker Referring Provider Active St art: October 03, 2024 End: October 03, 2024 Team Status: Active Member Role/Relationship Status Dates Merry Reese PULVERIZER-C Primary Care Provider Active Start: October 03, 2024 Merry Reese PULVERIZER-C Referring Provider Active St art: October 03, 2024 Merry Reese NP-C Other Provider Active Start: October 03, 2024 Dr. Nic Esteban MD Attending Provider Active S tart: October 03, 2024 Supervisor Long Goods Relationship Specialty Start Date End Date ReeseMerry whittaker, TELEGRAPH OFFICE TELEPHONE CLERK-POT PRESS OPERATOR [address] [place] [address] PCP - General Family Medicine 09/05/24 Goals [...] BE BASED ON THE PRIMARY CLINICAL RECORDS. [facility]. provides no warranty or guarantee of the accuracy or completeness of information in this document.
== END | disposition home or self-care (01) ==
LOC: PSN 12:17
PROVIDERS: PCP Nurse Practitioner Family; Referring Provider Nurse Practitioner Family; Visit Provider Nurse Practitioner Family
DX: R20.0 Anesthesia of skin (principal); R20.2 Paresthesia of skin
CPT/HCPCS: 95886; 95912